=== PATIENT | male | born 1925 | race Caucasian/White ===

== ENCOUNTER 2016-09-14 20:13 | Inpatient (IN) | payer MEDICARE, BC, OTHER ==
[~2016-09-14] VITALS: Ht 175.3 cm; Wt 70.1 kg
[~2016-09-14 20:13] MED LIST: ADV250INH INH; CARD40TA PO; COUM1TAB17 PO; COUM2.5T11 PO; DIGO0.12 PO; FURO40TA2 PO; GABA-279 PO; GLIP5TAB8 PO; LEVA250T PO; MAGN400T5 PO; MUCI600T34 PO; PACE200T PO; PROA1AER INH; RAMI5CA PO; TAMS0.4C2 PO; TUMS500C PO; TYLE325T5 PO; VITMTA PO; ZOCO40TA PO
[2016-09-14 20:50] LABS: BASO # 0.1 K/mm3 (0.0-0.2); BASO % 0.7 % (0.0-1.0); EOS % 0.4 % (0.0-3.0); LARGE UNSTAINED CELL % 0.2 % (0.0-4.0); LYMPH # 0.6 K/mm3 (1.5-4.5); MEAN CORPUSCULAR HEMOGLOBIN 29.8 pg (27.0-33.0); MEAN CORPUSCULAR HGB CONC 30.7 g/dl (32.0-36.5); MEAN CORPUSCULAR VOLUME 97.3 fl (80.0-96.0); MONO # 0.2 K/mm3 (0.0-0.8); MONO % 2.1 % (0.0-5.0); NEUTROPHILS # 8.1 K/mm3 (1.8-7.7); NEUTROPHILS % 89.6 % (36.0-66.0); PLATELET COUNT, AUTOMATED 236 k/mm3 (150-450); RED CELL DISTRIBUTION WIDTH 14.1 % (11.5-14.5)
[2016-09-14 20:56] LABS: ABG BASE EXCESS 2.6 (-2.0-2.0); ABG DEVICE NASAL CANN; ABG HCO3 22.8 MEQ/L (22.0-26.0); ABG PARTIAL PRESSURE CO2 24.8 mmHg (35.0-45.0); ABG PARTIAL PRESSURE O2 72.9 mmHg (75.0-100.0); ABG STANDARD HCO3 26.7 MEQ/L (22.0-26.0); ABG TOTAL CO2 23.5 MEQ/L (23.0-31.0); ABG pH (ARTERIAL) 7.581 UNITS (7.350-7.450)
[2016-09-14 21:04] LABS: CALCIUM LEVEL 8.9 MG/DL (8.8-10.2); CREATININE FOR GFR 2.4 MG/DL (0.70-1.30); GLOMERULAR FILTRATION RATE 27.3 (>35); POTASSIUM SERUM 4.3 MEQ/L (3.5-5.1)
[2016-09-14] MEDS ORDERED: HumuLIN R (REGULAR) INSULIN (NovoLIN R) **100U/ML** PER UNIT As Ordered ONE (21:20)
[2016-09-14] MEDS ORDERED: ALPRAZolam 0.25 MG TAB As Ordered ONE (21:21)
[2016-09-14] MEDS ORDERED: FLOM5CAP PO (22:00)
[2016-09-14] MEDS ORDERED: FURO40TA2 PO (22:00)
[2016-09-14] MEDS ORDERED: SIMV20TA2 PO (22:00)
[2016-09-14] MEDS ORDERED: INCR1INH INH (22:03)
[2016-09-14] MEDS ORDERED: BUDE180INH INH (22:03)
[2016-09-14] MEDS ORDERED: PRED20TA PO (22:03)
[2016-09-14] MEDS ORDERED: VITMTA PO (22:03)
[2016-09-15] VITALS (7 sets, daily range): BP systolic 127–190; BP diastolic 59–98
[2016-09-15] MEDS ORDERED: ACETAMINOPHEN TAB 650MG DOSE (2X325MG) PO PRN
--- NOTE | 2016-09-15 00:29 | HPEPDOC ---
General Date of Admission Sep 14, 2016 at 23:56 Primary Care Physician: Marcus Rubi Chief Complaint The patient is a 89-year-old male admitted with a reason for visit of SOB. Source: patient, family Severity: Moderate History of Present Illness Mr Guerra is a pleasant 89 y/o male with past medical history of a. fib , CHF, COPD, CAD, hypercholesterolemia, HTN, mitral valve replacement, pulmonary HTN and DM2 who presents this evening after experiencing 24 hours of increased fatigue and SOB, the pt states that the SOB was worse with ambulation but did not worsen with laying flat in bed. He also has developed a cough productive of clear/white sputum over this time. He denies experiencing fever, chills, muscle aches or night sweats, denies recent travel or contact with others who have been ill. He denies abdominal pain, n/v or changes in his bowel habits, denies pain with urination and blood in his urine, denies CP or palpitations, denies h/a or blurred vision. He has said that he normally holds fluid in his legs, but that this has been getting better the past couple days. He does speak of a 17 lb weight loss over the past 2-3 weeks, although his family who is at bedside, thinks it has been more of a time frame of a week to 10 days. The pt admits to a decrease in appetite the past few days but doesn't think this could have attributed to the aforementioned weight loss. He was seen at our hospital ED a couple weeks ago and treated with a 10 day course of Doxycycline abx., and steroids for COPD exacerbation. Home Medications Scheduled (Incruse Ellipta) 62.5 Mcg/Inh Inh 62.5 MCG INH DAILY (Reported) Amiodarone Hcl (Pacerone) 200 Mg Tab 200 MG PO DAILY (Reported) Budesonide (Pulmicort Flexhaler) 120 Puff/Inhaler Aerp 1 PUFF INH BID (Reported ) Furosemide (Furosemide) 40 Mg Tab 40 MG PO BID (Reported) FRIDAY, FRIDAY, FRIDAY, FRIDAY, FRIDAY Furosemide (Furosemide) 40 Mg Tab 40 MG PO DAILY (Reported) FRIDAY, FRIDAY Glipizide (Glipizide) 5 Mg Tab 5 MG PO ACS (Reported) 1/2 BEFORE DINNERTIME Multivitamins *[facility] STOCKED* (Thera M Plus *[facility] STOCKED*) 1 Tab Tab 1 TAB PO DAILY (Reported) Prednisone (Prednisone) 20 Mg Tab 60 MG PO DAILY (Reported) Simvastatin (Simvastatin) 20 Mg Tab 20 MG PO QHS (Reported) Tamsulosin Hydrochloride (Flomax) 0.4 Mg Cap 0.4 MG PO DAILY (Reported) AFTER DINNERTIME Warfarin Sod (Coumadin) 5 Mg Tab 5 MG PO 2XWK (Reported) FRIDAY, FRIDAY Warfarin Sod (Coumadin) 2.5 Mg Tab 2.5 MG PO 5XW (Reported) FRIDAY, FRIDAY, FRIDAY, FRIDAY, FRIDAY Scheduled PRN Acetaminophen (Tylenol) 325 Mg Tab 650 MG PO Q4H PRN PRN MILD PAIN OR FEVER ( Reported) Calcium Carbonate (Tums) 500 Mg Chw 1,000 MG PO Q4HP PRN PRN HEARTBURN (Reported ) Allergies Coded Allergies: Penicillins (Unverified Allergy, Unknown, rash, 12/19/15) Past Medical History Medical History COPD CHF CAD a fib pulmonary HTN mitral valve replacement surgery DM2 hypercholesterolemia HTN Surgical History appendectomy back surgery mitral valve replaced in 2002 bowel resection sx. >50 years ago tonsillectomy Family History Significant Family History: No pertinent family hx Social History * Smoker: former Smoker (quit 33 years prior, quarter pack a week for 17 years) Alcohol: rarely (1 beer a month) Recent Travel/Sick Contacts: Denies: Recent travel Psychosocial History: No pertinent psych hx Review of Symptoms General: Reports: Fatigue, Malaise, Denies: Chills, Night Sweats, Normal Appetite Constitutional: Reports: Fatigue, Malaise, Weight Loss, Denies: Chills, Fever, Night Sweats, Weakness Eyes: Denies: Conjunctivae inflammation, Eyelid inflammation, Pain, Vision change ENT: Denies: Ear Pain, Head Aches Skin: Denies: Bruising, Jaundice, Lesions, Rash Pulmonary: Reports: Cough, Dyspnea, Denies: Pleuritic Chest Pain Cardiovascular: Reports: Lt Headedness, Denies: Chest Pain, Edema, Orthopnea, Palpitations, Paroxysmal Noc. Dyspnea Gastrointestinal: Denies: Abdominal Pain, Constipation, Diarrhea, Nausea, Vomiting Genitourinary: Denies: Dysuria, Frequency, Incontinence Hematologic: Denies: Bruising Endocrine: Denies: Polydipsia Neurological: Denies: Incoordination, Weakness Psych: Reports: Mood Normal Physical Examination Eye Exam: Positive: Conjunctiva & lids normal, PERRLA, Negative: Ptosis, Sclera icteric ENT Exam: Positive: Atraumatic, Mucous membr. moist/pink, Nares Patent, Pharynx Normal Neck Exam: Positive: Supple Chest Exam: Positive: Clear to auscultation, Normal air movement, Negative: Rales, Rhonchi, Wheezing Heart Exam: Positive: Normal S1, Normal S2, Tachycardic, Negative: Gallops, Murmurs, Rubs Telemetry: Positive: No significant arrhythmia Abdomen Exam: Positive: Normal bowel sounds, Soft, Negative: Hepatospenomegaly, Tenderness Extremity Exam: Negative: Clubbing, Cyanosis, Edema Vital Signs bp 178/76 hr 94 rr 28 temp 96.5 99% on room ait Laboratory Data Labs 24H Laboratory Tests 2 09/14/16 20:32: Anion Gap 16, B-Type Natriuretic Peptide 225H, White Blood Count 9.0, Red Blood Count 5.14, Hemoglobin 15.3, Hematocrit 50.0, Mean Corpuscular Volume 97.3H, Mean Corpuscular Hemoglobin 29.8, Mean Corpuscular Hemoglobin Concent 30.7L, Red Cell Distribution Width 14.1, Platelet Count 236, Neutrophils (%) (Auto) 89.6H, Lymphocytes (%) (Auto) 7.0L, Monocytes (%) (Auto) 2.1, Eosinophils (%) ( Auto) 0.4, Basophils (%) (Auto) 0.7, Neutrophils # (Auto) 8.1H, Lymphocytes # ( Auto) 0.6L, Monocytes # (Auto) 0.2, Eosinophils # (Auto) 0.0, Basophils # (Auto ) 0.1, Blood Urea Nitrogen 64H, Creatinine 2.40H, Sodium Level 138, Potassium Level 4.3, Chloride Level 96L, Carbon Dioxide Level 26, Calcium Level 8.9, Glomerular Filtration Rate 27.3L, Large Unclassified Cells # 0.0, Large Unclassified Cells % 0.2, Troponin I 0.15H 09/14/16 20:33: D-Dimer, Quantitative 285.2, Prothromb Time International Ratio 5.00, Prothrombin Time 46.3H 09/14/16 20:48: Arterial Blood pH 7.581H, Arterial Blood Partial Pressure CO2 24.8L, Arterial Blood Partial Pressure O2 72.9L, Arterial Blood Total CO2 23.5, Arterial Blood HCO3 22.8, Arterial Blood Base Excess 2.6H, Arterial Blood Oxygen Saturation 96.6, Blood Gas Bicarbonate Standard 26.7H, Oxygen Delivery Device NASAL GENNARO 09/14/16 22:01: Urine Amorphous Sediment , Urine Appearance CLEAR, Urine Color STRAW, Urine pH 7.0, Urine Specific [place] 1.018, Urine Protein NEGATIVE, Urine Glucose (UA) 3+ H, Urine Ketones NEGATIVE, Urine Urobilinogen 0.2, Urine Bilirubin NEGATIVE, Urine Leukocyte Esterase NEGATIVE, Urine Bacteria (Auto) NEGATIVE, Urine Blood NEGATIVE, Urine Calcium Carbonate Cryst(Auto) , Urine Calcium Oxalate Cryst ( Auto) , Urine Calcium Phosphate Lisa (Auto) , Urine Cellular Casts , Urine Cystine Crystals , Urine Granular Casts (Auto) , Urine Hyaline Casts (Auto) 0, Urine Leucine Crystals , Urine Mucus (Auto) , Urine Nitrite NEGATIVE, Urine Oval Fat Bodies (Auto) , Urine RBC (Auto) 1, Urine Renal Epithelial Cells , Urine Sperm (Auto) , Urine Squamous Epithelial Cells 0, Urine Transitional Epithelial Cells , Urine Trichomonas (Auto) , Urine Triple Phosphate Cryst (Auto ) , Urine Tyrosine Crystals , Urine Uric Acid Crystals (Auto) , Urine WBC (Auto ) 0, Urine Waxy Casts (Auto) , Urine Yeast-Like Cells (Auto) 09/14/16 22:25: Bedside Glucose (Misc Panel) 450H 09/14/16 22:26: Creatine Kinase MB 6.8H, Creatine Kinase MB Relative Index 2.82, Total Creatine Kinase 241, Troponin I 0.14H CBC/BMP Laboratory Tests 09/14/16 20:32 Calcium Level 8.9, Red Blood Count 5.14, Mean Corpuscular Volume 97.3 H, Mean Corpuscular Hemoglobin 29.8, Mean Corpuscular Hemoglobin Concent 30.7 L, Red Cell Distribution Width 14.1, Neutrophils (%) (Auto) 89.6 H, Lymphocytes (%) ( Auto) 7.0 L, Monocytes (%) (Auto) 2.1, Eosinophils (%) (Auto) 0.4, Basophils (% ) (Auto) 0.7, Neutrophils # (Auto) 8.1 H, Lymphocytes # (Auto) 0.6 L, Monocytes # (Auto) 0.2, Eosinophils # (Auto) 0.0, Basophils # (Auto) 0.1 Microbiology Microbiology 09/14/16 Blood Culture, Received Pending 09/14/16 Blood Culture, Received Pending Assessment/Plan Problems: (1) Bronchitis Status: Acute Response to Treatment: Stable Problem Text: suspect this is 2/2 viral or anxiety as pt's most recent blood gas showed PCo2 of 24.8 with ph 7.5, and the pt did admit to being anxious when he came to ED, with a resp rate in the high 20's have ordered sputum cx CXR was not concerning for consolidation pt did not have elevated white count nor temperature nor lactic acid will hold on abx therapy for now as do not think this is 2/2 bacterial etiology since pt was on steroid taper, will continue prednisone taper inpt. (2) Atrial fibrillation Status: Chronic Response to Treatment: Stable Problem Text: will hold pts Coumadin therapy for now coag. studies show pt to be supra-therapeutic have ordered vitamin K EKG in AM trend troponins., first set showed elevation, may be 2/2 kidney disease- will repeat set. (3) HTN (hypertension) Status: Chronic Response to Treatment: Stable Problem Text: BP is slightly elevated will continue pts home medications % monitor (4) COPD (chronic obstructive pulmonary disease) Status: Chronic Response to Treatment: Stable Problem Text: will order Duoneb PRN q4h pt is resting comfortably and does not currently claim to be SOB will also order O2 titrate 88-92% given COPD hx. (5) CHF (congestive heart failure) Status: Chronic Response to Treatment: Stable Problem Text: stable last Echo study done 12/05 showed LVEF 75% continue home medications (6) Weight loss Status: Acute Response to Treatment: Stable Problem Text: pt states he thinks he has lost 17 lbs over the past 2-3 weeks, however family is bedside and claims they believe it has been more in a 7-10 day period pt did not admit to actively doing anything to cause such a weight loss admits appetite has been decreased but does not think it could cause such a drop in weight will order CT chest w/o contrast to evaluate further (7) DM2 (diabetes mellitus, type 2) Status: Chronic Response to Treatment: Stable Problem Text: stopped pts home diabetes medicines sliding scale insulin therapy ordered (8) DVT prophylaxis Status: Chronic Response to Treatment: Stable Problem Text: SCD Plan / VTE VTE Prophylaxis Ordered?: Yes GME ATTESTATION GME ATTESTATION My preceptor for this patient encounter was physically present in the building during the encounter and was fully available. As needed, all aspects of the patient interview, examination, medical decision making process, and medical care plan development were reviewed and approved by the preceptor. Preceptor is aware and concurs with the plan as stated in the body of this note and will attest to such by his/her cosignature. PATRICIA FIORE OGME-1 Sep 15, 2016 00:29
[2016-09-15] MEDS ORDERED: GLUCAGON FOR INJ 1 MG VIAL (J1610) SC PRN (00:30)
[2016-09-15] MEDS ORDERED: GLUCOSE 4 GM CHEW TABLET PO PRN (00:30)
[2016-09-15] MEDS ORDERED: DEXTROSE 50% 50 ML SYRINGE IV PRN (00:30)
[2016-09-15] MEDS ORDERED: IPRATROPIUM 0.5MG/ALBUTEROL 2.5MG INH SOL UD 3ML (DUONEB)(J7620) NEB PRN (01:15)
--- NOTE | 2016-09-15 02:14 | EDDOCDS ---
Physician Documentation [facility] Name: Wilman Guerra Age: 89 yrs Sex: Male : 1925 Arrival Date: 09/14/2016 Time: 20:13 Bed 8 Private MD: Marcus Rubi Disposition: 09/14/16 23:29 Hospitalization ordered by Reinier Carrington for Observation. Preliminary diagnosis are Acute kidney failure, Shortness of breath, Hyperglycemia, unspecified. - Bed requested for PCU. - Status is Observation. ko2 - Condition is Stable. - Problem is an acute exacerbation. - Symptoms are unchanged. Historical: - Allergies: PENICILLINS (Hives); - Home Meds: 1. amiodarone 200 mg Oral tab 1 tab once daily 2. Coumadin 2.5 mg on --, Sat, 5 mg on -- Oral tab 3. Pulmicort 0.5 mg/2 mL Inhl nbsp 2 mL 2 times per day 4. furosemide 40 mg Oral tab 1 tab once daily if weight is above 139#, pt to take med BID. Pt to take Tues/Sat off from med 5. glipizide 5 mg Oral tab 1 tab once daily 6. Incruse Ellipta 62.5 mcg/actuation inhalation dsdv 1 puff once daily 7. multivitamin Oral tab 1 tab daily 8. simvastatin 20 mg Oral tab 1 tab nightly 9. tamsulosin 0.4 mg oral cp24 1 cap once daily 10. prednisone 20 mg Oral tab 60 mg once daily - PMHx: Atrial Fib; CHF; COPD; coronary arteriosclerosis; Hypercholesterolemia; Hypertension; mitral valve disorder; - PSHx: Appendectomy; Mitral Valve Replacement, Procine; back surgery; Tonsillectomy; Bowel resection; - Social history: Smoking status: Patient states former smoker of tobacco. No barriers to communication noted, The patient speaks fluent Sudanese, Speaks appropriately for age. - Family history: Not pertinent. - : The pt / caregiver states he / she is on anticoagulants: coumadin. Home medication list is obtained from the patient, a discharge med list. - Exposure Risk Screening:: None identified. Vital Signs: 09/14 20:15 BP 178 / 76; Pulse 94; Resp 28 S; Temp 96.5(T); Pulse Ox 99% on R/A; Weight 58.06 kg / dd6 128 lbs (R); Height 5 ft. 9 in. (175.26 cm) (R); 20:50 Pulse 82 MON; Pulse Ox 98% ; ko2 20:51 BP 143 / 69 (auto/); ko2 21:36 BP 169 / 78 (auto/); ko2 21:37 Pulse 84 MON; Pulse Ox 96% ; ko2 21:51 BP 193 / 84 (auto/); ko2 21:51 Pulse 78 MON; Pulse Ox 97% ; ko2 22:06 BP 160 / 83 (auto/); ko2 22:06 Pulse 76 MON; Pulse Ox 96% ; ko2 22:21 BP 171 / 88 (auto/); ko2 22:21 Pulse 82 MON; Resp 22; Pulse Ox 97% ; ko2 23:06 BP 141 / 73 (auto/); ko2 23:06 Pulse 72 MON; Pulse Ox 94% ; ko2 23:21 BP 142 / 74 (auto/); ko2 23:22 Pulse 72 MON; Pulse Ox 94% ; ko2 23:36 BP 144 / 83 (auto/); ko2 23:36 Pulse 74 MON; Pulse Ox 95% ; ko2 23:51 BP 158 / 82 (auto/); ko2 23:51 Pulse 70 MON; Pulse Ox 95% ; ko2 09/15 00:26 BP 125 / 78; Pulse 60; Resp 18; Temp 97; Pulse Ox 98% ; Pain 0/10; ko2 09/14 20:15 Body Mass Index 18.90 (58.06 kg, 175.26 cm) dd6 MDM: 09/14 20:18 -Blood Culture (Adults Only), peripheral from different site, or from device/port/PICC le etc. if present ordered. 20:18 Cuff Setter Overlock/Pulse Ox/q 15 min VS ordered. le 20:18 IV Saline Lock ordered. le 20:18 Oxygen at 4L/Min NC or Home dosage ordered. le 20:18 Rhythm Strip to chart ordered. le 20:19 B-Type Natiuretic Peptide Ordered. EDMS 20:19 Basic Metabolic Profile Ordered. EDMS 20:19 CBC with Diff Ordered. EDMS 20:19 Troponin Ordered. EDMS 20:20 -Blood Culture Ordered. EDMS 20:20 Chest, 2 View (pa\E\lat) Ordered. EDMS 20:20 ECG WITH READING ER PHYS+CARDIAG ordered. EDMS 20:22 UA Ordered. EDMS 20:30 -Blood Culture (Adults Only), peripheral from different site, or from device/port/PICC ml3 etc. if present complete. 20:30 Call Respiratory ordered. le 20:31 INR Ordered. EDMS 20:31 BLOOD CULTURES Ordered. EDMS 20:31 -Arterial Blood Gas Ordered. EDMS 20:33 Call Respiratory complete. ml3 20:34 D-DIMER QUANT Ordered. EDMS 20:55 CBC with Diff Reviewed. le 21:01 -Arterial Blood Gas Reviewed. le 21:02 ALPRAZolam Tablet 0.5 mg PO once ordered. le 21:06 B-Type Natiuretic Peptide Reviewed. le 21:06 NS 0.9% 1000 ml IV at bolus once ordered. le 21:07 Insulin Regular Human 5 units IVP once ordered. le 21:07 Accucheck ordered. le 21:07 Accucheck ordered. le 21:09 Basic Metabolic Profile Reviewed. le 21:09 Troponin Reviewed. le 21:12 BED REQUEST+ADM ordered. EDMS 21:13 Redraw CIP &Troponin (put time in details section) ordered. le 21:36 Redraw CIP &Troponin (put time in details section) complete. ml3 21:37 CARDIAC MARKER PANEL Ordered. EDMS 21:43 D-DIMER QUANT Reviewed. le 21:43 INR Reviewed. le 22:20 Financial registration complete. kf3 22:35 Fingerstick Blood Sugar Ordered. EDMS 22:56 Fingerstick Blood Sugar Reviewed. le 23:21 CARDIAC MARKER PANEL Reviewed. le 23:22 [facility] Payment Agreement was scanned into [employer] and attached to record. kf3 23:28 NS 0.9% 1000 ml IV at 100 mL/hr continuous ordered. le 09/15 00:03 Admission / Observation Status ordered. EDMS 00:03 ELECTROCARDIOGRAM ADULT ordered. EDMS 00:04 CONSISTENT CARBOHYDRATES ordered. EDMS 00:04 PROTHROMBIN TIME PROFILE\E\INR Ordered. EDMS 00:04 CBC WITH DIFFERENTIAL Ordered. EDMS 00:04 COMPLETE COMPHRENSIVE METABOLI Ordered. EDMS 00:04 MAGNESIUM LEVEL Ordered. EDMS 00:07 CARDIAC INJURY PROFILE Ordered. EDMS 00:08 CARDIAC INJURY PROFILE Ordered. EDMS 00:08 CARDIAC INJURY PROFILE Ordered. EDMS 00:22 HEMOGLOBIN A1C Ordered. EDMS 00:24 SPUTUM CULTURE AND GRAM STAIN Ordered. EDMS 01:26 CT Chest without contrast Ordered. EDMS Administered Medications: 09/14 21:20 Drug: NS 0.9% 1000 ml [sodium chloride 0.9 % intravenous solution] Route: IV; Rate: ko2 bolus; Site: left antecubital; 22:34 Follow up: IV Status: Completed infusion; IV Intake: 1000ml ko2 21:20 Drug: Insulin Regular Human 5 units [insulin regular human 100 unit/mL injection ko2 solution (0.05 mL)] {Co-Signature: mlc (Hanny Gibbs RN).} Route: IVP; Site: left antecubital; 21:25 Drug: ALPRAZolam 0.5 mg [alprazolam 0.25 mg tablet (2 tabs)] Route: PO; ko2 23:39 Drug: NS 0.9% 1000 ml [sodium chloride 0.9 % intravenous solution] Route: IV; Rate: 100 ko2 mL/hr; Site: left antecubital; Signatures: Dispatcher [employer] EDMS Remigio Lee, Education Liaison Unit ml3 Mikaela Bagley, REJECTED ITEMS CLERK REJECTED ITEMS CLERK Lupillo Ayers, Reg Reg kf3 Gentry Gamble RN RN jmb Ogden, Kari, RN RN ko2 Hanny jimenez The chart was reviewed and I authenticate all verbal orders and agree with the evaluation and treatment provided.Corrections: (The following items were deleted from the chart) 20:33 20:31 D-DIMER QUANT+LAB ordered. EDVA EDMS 09/15 00:09 00:04 CARDIAC INJURY PROFILE ordered. EDMS EDMS 00:09 00:04 CARDIAC INJURY PROFILE ordered. EDMS EDMS 00:09 00:04 CARDIAC INJURY PROFILE ordered. EDVA EDMS Attachments: 09/14 23:22 [facility] Payment Agreement kf3 MTDD
--- NOTE | 2016-09-15 02:14 | EDDOCDS ---
Nurse's Notes [facility] Name: Wilman Guerra Age: 89 yrs Sex: Male : 1925 Arrival Date: 09/14/2016 Time: 20:13 Bed 8 Private MD: Marcus Rubi Diagnosis: Acute kidney failure;Shortness of breath;Hyperglycemia, unspecified Presentation: 09/14 20:23 Presenting complaint: Friend states: Patient presented with shortness of breathe, jmb recent cough. Patient weak. Adult Sepsis Screening: The patient does not have new or worsening altered mentation. Patient has a respiratory rate of greater than or equal to 22 (1 point). Systolic blood pressure is greater than 100. Patient has a qSOFA score of 1- Negative Sepsis Screen. Suicide/Homicide risk assessment- the patient denies having any suicidal and/or homicidal ideations and does not present with any other emotional, behavioral or mental health complaints. Status: Patient is not a service delivery director or dependent. Transition of care: patient was not received from another setting of care. 20:23 Acuity: YOVANNY Level 3 b 20:23 Method Of Arrival: Wheelchair [facility] Triage Assessment: 20:25 General: Appears ill, uncomfortable, Behavior is appropriate for age. Pain: Denies [facility] pain. Neurological: Level of Consciousness is awake, Oriented to person, place, time. Respiratory: Onset: The symptoms/episode began/occurred gradually, Airway is patent Respiratory effort is labored, Respiratory pattern is regular. GI: Abdomen is non- distended. Derm: Skin is pink, warm & dry. Musculoskeletal: Range of motion intact in all extremities. Historical: - Allergies: PENICILLINS (Hives); - Home Meds: 1. amiodarone 200 mg Oral tab 1 tab once daily 2. Coumadin 2.5 mg on --, Sat, 5 mg on Oral tab 3. Pulmicort 0.5 mg/2 mL Inhl nbsp 2 mL 2 times per day 4. furosemide 40 mg Oral tab 1 tab once daily if weight is above 139#, pt to take med BID. Pt to take Tues/Sat off from med 5. glipizide 5 mg Oral tab 1 tab once daily 6. Incruse Ellipta 62.5 mcg/actuation inhalation dsdv 1 puff once daily 7. multivitamin Oral tab 1 tab daily 8. simvastatin 20 mg Oral tab 1 tab nightly 9. tamsulosin 0.4 mg oral cp24 1 cap once daily 10. prednisone 20 mg Oral tab 60 mg once daily - PMHx: Atrial Fib; CHF; COPD; coronary arteriosclerosis; Hypercholesterolemia; Hypertension; mitral valve disorder; - PSHx: Appendectomy; Mitral Valve Replacement, Procine; back surgery; Tonsillectomy; Bowel resection; - Social history: Smoking status: Patient states former smoker of tobacco. No barriers to communication noted, The patient speaks fluent Nepali, Speaks appropriately for age. - Family history: Not pertinent. - : The pt / caregiver states he / she is on anticoagulants: coumadin. Home medication list is obtained from the patient, a discharge med list. - Exposure Risk Screening:: None identified. Screenin/25 00:25 Screening information is obtained from the patient. Fall risk: No risks identified. ko2 Assistance ADL's: requires no assistance with activities of daily living. Abuse/DV Screen: The patient / caregiver reports he/she is: not in a situation that causes fear, pain or injury. Nutritional screening: No deficits noted. Advance Directives: Currently, there is a health care proxy. home support is adequate. Assessment: 09/14 20:25 General: Appears in no apparent distress, Behavior is anxious. Pain: Denies pain. ko2 Neurological: Level of Consciousness is awake, alert. Cardiovascular: Rhythm is. Cardiovascular: Rhythm is atrial fibrillation. Respiratory: Airway is patent Breath sounds are diminished bilaterally. Derm: Skin is normal. 21:36 General: Appears in no apparent distress, Behavior is anxious. Pain: Denies pain. ko2 Neurological: Level of Consciousness is awake, alert. Cardiovascular: Rhythm is sinus rhythm No ectopy. Chest pain is denied. Respiratory: Airway is patent Respiratory effort is even, unlabored. Derm: Skin is normal. 22:29 General: Appears in no apparent distress, comfortable, Behavior is appropriate for age, ko2 cooperative. Pain: Denies pain. Neurological: Level of Consciousness is awake, alert. Respiratory: Airway is patent Respiratory effort is even, unlabored. Derm: Skin is normal. 23:30 General: pt currently resting on stretcher at this time. No concerns.. ko2 09/15 00:24 General: Appears in no apparent distress, comfortable, Behavior is appropriate for age, ko2 cooperative. Pain: Denies pain. Neurological: Level of Consciousness is awake, alert. Respiratory: Airway is patent Respiratory effort is. Derm: Skin is normal. Vital Signs: 09/14 20:15 BP 178 / 76; Pulse 94; Resp 28 S; Temp 96.5(T); Pulse Ox 99% on R/A; Weight 58.06 kg dd6 (R); Height 5 ft. 9 in. (175.26 cm) (R); 20:50 Pulse 82 MON; Pulse Ox 98% ; ko2 20:51 BP 143 / 69 (auto/); ko2 21:36 BP 169 / 78 (auto/); ko2 21:37 Pulse 84 MON; Pulse Ox 96% ; ko2 21:51 BP 193 / 84 (auto/); ko2 21:51 Pulse 78 MON; Pulse Ox 97% ; ko2 22:06 BP 160 / 83 (auto/); ko2 22:06 Pulse 76 MON; Pulse Ox 96% ; ko2 22:21 BP 171 / 88 (auto/); ko2 22:21 Pulse 82 MON; Resp 22; Pulse Ox 97% ; ko2 23:06 BP 141 / 73 (auto/); ko2 23:06 Pulse 72 MON; Pulse Ox 94% ; ko2 23:21 BP 142 / 74 (auto/); ko2 23:22 Pulse 72 MON; Pulse Ox 94% ; ko2 23:36 BP 144 / 83 (auto/); ko2 23:36 Pulse 74 MON; Pulse Ox 95% ; ko2 23:51 BP 158 / 82 (auto/); ko2 23:51 Pulse 70 MON; Pulse Ox 95% ; ko2 09/15 00:26 BP 125 / 78; Pulse 60; Resp 18; Temp 97; Pulse Ox 98% ; Pain 0/10; ko2 09/14 20:15 Body Mass Index 18.90 (58.06 kg, 175.26 cm) dd6 Vitals: 09/14 20:15 Log In Time: September 14, 2016 at 20:13. dd6 20:15 RN notified that patient meets Red Flag criteria. dd6 ED Course: 20:14 Patient visited by Richard Lopez PCA. dd6 20:14 Marcus Rubi is Private Physician. dd6 20:14 Patient moved to Waiting dd6 20:17 Echo Abrams,RN is Primary Nurse. dd6 20:17 Patient moved to 8 dd6 20:18 [facility]ael[facility] Bagley F[facility]. le 20:21 Patient visited by Mikaela Bagley FNP. le 20:21 Patient visited by Mikaela Bagley FNP. le 20:24 Triage Initiated jmb 20:37 INR Sent. ko2 20:37 -Blood Culture Sent. ko2 20:37 B-Type Natiuretic Peptide Sent. ko2 20:37 Basic Metabolic Profile Sent. ko2 20:37 CBC with Diff Sent. ko2 20:38 D-DIMER QUANT Sent. ko2 20:38 Inserted saline lock: 20 gauge in left antecubital area and blood collected. The ko2 patient tolerated the procedure well. 20:38 EKG done. (by ED staff). Reviewed by Mikaela KEMP. kb5 20:39 Patient visited by George Fournier PCA. kb5 21:06 Patient visited by Hanny Gibbs RN. mlc 21:06 Notified nurse practitioner of critical lab value, glucose 759. mlc 21:38 Notified nurse practitioner of INR of 5 Mikaela Bagley notified. ko2 21:58 Patient visited by George Fournier PCA. kb5 22:04 UA Sent. ko2 22:05 Patient visited by Echo Abrams,BALDEV. ko2 22:58 Patient visited by George Fournier PCA. kb5 23:22 [facility] Payment Agreement was scanned into [employer] and attached to record. kf3 23:29 Reinier Carrington is Hospitalizing Provider. le 09/15 00:45 The patient / caregiver is instructed regarding the plan of care and ED course. ko2 00:45 No procedures done that require assistance. ko2 Administered Medications: 09/14 21:20 Drug: NS 0.9% 1000 ml [sodium chloride 0.9 % intravenous solution] Route: IV; Rate: ko2 bolus; Site: left antecubital; 22:34 Follow up: IV Status: Completed infusion; IV Intake: 1000ml ko2 21:20 Drug: Insulin Regular Human 5 units [insulin regular human 100 unit/mL injection ko2 solution (0.05 mL)] {Co-Signature: [facility] [place] (Hanny Gibbs RN).} Route: IVP; Site: left antecubital; 21:25 Drug: ALPRAZolam 0.5 mg [alprazolam 0.25 mg tablet (2 tabs)] Route: PO; ko2 23:39 Drug: NS 0.9% 1000 ml [sodium chloride 0.9 % intravenous solution] Route: IV; Rate: 100 ko2 mL/hr; Site: left antecubital; Intake: 22:34 IV: 1000.00ml; Total: 1000.00ml. ko2 RT: 21:01 ABG's drawn from left radial artery allens test done and positive pressure held for 5 dk minutes no bleeding noted pressure bandage applied specimen sent pt. tolerated well. Order Results: Lab Order: B-Type Natiuretic Peptide; SPEC'M 09/14/16 20:32 Test: BRAIN NATRIURETIC PEPTIDE; Value: 225; Range: <100; Abnormal: Above high normal; Units: PG/ML; Status: F Lab Order: Basic Metabolic Profile; SPEC'M 09/14/16 20:32 Test: GLUCOSE, FASTING; Value: 759; Range: 83-110; Abnormal: Above upper panic limits; Units: MG/DL; Status: F Test: BLOOD UREA NITROGEN; Value: 64; Range: 7-18; Abnormal: Above high normal; Units: MG/DL; Status: F Test: CREATININE FOR GFR; Value: 2.40; Range: 0.70-1.30; Abnormal: Above high normal; Units: MG/DL; Status: F Test: GLOMERULAR FILTRATION RATE; Value: 27.3; Range: >35; Abnormal: Below low normal; Status: F Test: SODIUM LEVEL; Value: 138; Range: 136-145; Units: MEQ/L; Status: F Test: POTASSIUM SERUM; Value: 4.3; Range: 3.5-5.1; Units: MEQ/L; Status: F Test: CHLORIDE LEVEL; Value: 96; Range: 98-107; Abnormal: Below low normal; Units: MEQ/L; Status: F Test: CARBON DIOXIDE LEVEL; Value: 26; Range: 21-32; Units: MEQ/L; Status: F Test: ANION GAP; Value: 16; Range: 8-16; Units: MEQ/L; Status: F Test: CALCIUM LEVEL; Value: 8.9; Range: 8.8-10.2; Units: MG/DL; Status: F Test Note: ; Units are mL/min/1.73 m2 Chronic Kidney Disease Staging per NKF: Stage I & II GFR >=60 Normal to Mildly Decreased Stage III GFR 30-59 Moderately Decreased Stage IV GFR 15-29 Severely Decreased Stage V GFR <15 Very Little GFR Left ESRD GFR <15 on ACCOUNTS MANAGER Lab Order: CBC with Diff; SPEC'M 09/14/16 20:32 Test: WHITE BLOOD COUNT; Value: 9.0; Range: 4.0-10.0; Units: K/mm3; Status: F Test: RED BLOOD COUNT; Value: 5.14; Range: 4.30-6.10; Units: M/mm3; Status: F Test: HEMOGLOBIN; Value: 15.3; Range: 14.0-18.0; Units: g/dl; Status: F Test: HEMATOCRIT; Value: 50.0; Range: 42.0-52.0; Units: %; Status: F Test: MEAN CORPUSCULAR VOLUME; Value: 97.3; Range: 80.0-96.0; Abnormal: Above high normal; Units: fl; Status: F Test: MEAN CORPUSCULAR HEMOGLOBIN; Value: 29.8; Range: 27.0-33.0; Units: pg; Status: F Test: MEAN CORPUSCULAR HGB CONC; Value: 30.7; Range: 32.0-36.5; Abnormal: Below low normal; Units: g/dl; Status: F Test: RED CELL DISTRIBUTION WIDTH; Value: 14.1; Range: 11.5-14.5; Units: %; Status: F Test: PLATELET COUNT, AUTOMATED; Value: 236; Range: 150-450; Units: k/mm3; Status: F Test: NEUTROPHILS %; Value: 89.6; Range: 36.0-66.0; Abnormal: Above high normal; Units: %; Status: F Test: LYMPH %; Value: 7.0; Range: 24.0-44.0; Abnormal: Below low normal; Units: %; Status: F Test: MONO %; Value: 2.1; Range: 0.0-5.0; Units: %; Status: F Test: EOS %; Value: 0.4; Range: 0.0-3.0; Units: %; Status: F Test: BASO %; Value: 0.7; Range: 0.0-1.0; Units: %; Status: F Test: LARGE UNSTAINED CELL %; Value: 0.2; Range: 0.0-4.0; Units: %; Status: F Test: NEUTROPHILS #; Value: 8.1; Range: 1.8-7.7; Abnormal: Above high normal; Units: K/mm3; Status: F Test: LYMPH #; Value: 0.6; Range: 1.5-4.5; Abnormal: Below low normal; Units: K/mm3; Status: F Test: MONO #; Value: 0.2; Range: 0.0-0.8; Units: K/mm3; Status: F Test: EOS #; Value: 0.0; Range: 0.0-0.50; Units: K/mm3; Status: F Test: BASO #; Value: 0.1; Range: 0.0-0.2; Units: K/mm3; Status: F Test: LARGE UNSTAINED CELL #; Value: 0.0; Range: 0.0-0.4; Units: K/mm3; Status: F Lab Order: Troponin; SPEC'M 09/14/16 20:32 Test: TROPONIN I; Value: 0.15; Range: < 0.10; Abnormal: Above high normal; Units: NG/ML; Status: F Test Note: ; Troponin I Reference Interval for Siemens LumaStream LOCI: 99th Percentile= 0.00-0.045 ng/ml Risk Stratification: <= 0.10 ng/ml Decreased Risk for Adverse Clinical Events. 0.10-1.50 ng/ml Increased Risk for Adverse Clinical Events. Evaluation of additional criterion and/or repeat testing in 2-6 hours is suggested to rule out myocardial damage. >= 1.50 ng/ml Indicative of Myocardial Injury. Lab Order: UA; SPEC'M 09/14/16 22:01 Test: APPEARANCE, URINE; Value: CLEAR; Range: CLEAR; Status: F Test: COLOR, URINE; Value: STRAW; Range: YELLOW; Status: F Test: PH,URINE; Value: 7.0; Range: 5.0-9.0; Units: UNITS; Status: F Test: SPECIFIC GRAVITY URINE AUTO; Value: 1.018; Range: 1.002-1.035; Status: F Test: PROTEIN, URINE AUTO; Value: NEGATIVE; Range: NEGATIVE; Units: mg/dL; Status: F Test: GLUCOSE, URINE (UA) AUTO; Value: 3+; Range: NEGATIVE; Abnormal: Above high normal; Units: mg/dL; Status: F Test: KETONE, URINE AUTO; Value: NEGATIVE; Range: NEGATIVE; Units: mg/dL; Status: F Test: UROBILINOGEN, URINE AUTO; Value: 0.2; Range: 0.0-2.0; Units: mg/dL; Status: F Test: BILIRUBIN, URINE AUTO; Value: NEGATIVE; Range: NEGATIVE; Status: F Test: NITRITE, URINE AUTO; Value: NEGATIVE; Range: NEGATIVE; Status: F Test: LEUKOCYTE ESTERASE, URINE AUTO; Value: NEGATIVE; Range: NEGATIVE; Status: F Test: BLOOD, URINE BLOOD; Value: NEGATIVE; Range: NEGATIVE; Status: F Test: WBC, URINE AUTO; Value: 0; Range: 0-3; Units: /HPF; Status: F Test: RBC, URINE AUTO; Value: 1; Range: 0-3; Units: /HPF; Status: F Test: BACTERIA, URINE AUTO; Value: NEGATIVE; Range: NEGATIVE; Status: F Test: SQUAMOUS EPITHELIAL CELL UR AU; Value: 0; Range: 0-6; Units: /HPF; Status: F Test: HYALINE CAST, URINE AUTO; Value: 0; Range: 0-1; Units: /LPF; Status: F Lab Order: INR; SPEC'M 09/14/16 20:33 Test: PROTHROMBIN TIME; Value: 46.3; Range: 12.3-14.5; Abnormal: Above high normal; Units: SECONDS; Status: F Test: INR; Value: 5.00; Status: F Test Note: ; THERAPUTIC HUMAN INR VALUES INDICATIONS NORMAL RANGES PROPHYLAXIS/TREATMENT OF: VENOUS THROMBOSIS 2.0-3.0 PULMONARY EMBOLISM 2.0-3.0 PREVENTION OF SYSTEMIC EMBOLISM FROM: TISSUE HEART VALVES 2.0-3.0 ACUTE MYOCARDIAL INFARCTION 2.0-3.0 VALVULAR HEART DISEASE 2.0-3.0 ATRIAL FIBRILLATION 2.0-3.0 MECHANICAL VALVES(HIGH RISK) 2.5-3.5 RECURRENT MYOCARDIAL INFARCTION 2.5-3.5 Lab Order: -Arterial Blood Gas; [facility] 09/14/16 20:48 Test: ABG pH (ARTERIAL); Value: 7.581; Range: 7.350-7.450; Abnormal: Above high normal; Units: UNITS; Status: F Test: ABG PARTIAL PRESSURE CO2; Value: 24.8; Range: 35.0-45.0; Abnormal: Below low normal; Units: mmHg; Status: F Test: ABG PARTIAL PRESSURE O2; Value: 72.9; Range: 75.0-100.0; Abnormal: Below low normal; Units: mmHg; Status: F Test: ABG TOTAL CO2; Value: 23.5; Range: 23.0-31.0; Units: MEQ/L; Status: F Test: ABG HCO3; Value: 22.8; Range: 22.0-26.0; Units: MEQ/L; Status: F Test: ABG BASE EXCESS; Value: 2.6; Range: -2.0-2.0; Abnormal: Above high normal; Status: F Test: ABG STANDARD HCO3; Value: 26.7; Range: 22.0-26.0; Abnormal: Above high normal; Units: MEQ/L; Status: F Test: ABG O2 SATURATION; Value: 96.6; Range: 95.0-99.0; Units: %; Status: F Test: ABG DEVICE; Value: NASAL GENNARO; Status: F Lab Order: D-DIMER QUANT; [facility] 09/14/16 20:33 Test: D-DIMER QUANT; Value: 285.2; Range: <500; Units: ng/ml; Status: F Lab Order: CARDIAC MARKER PANEL; [facility] 09/14/16 22:26 Test: CPK CREATINE PHOSPHOKINASE; Value: 241; Range: 39-308; Units: U/L; Status: F Test: CK-MB VALUE MASS; Value: 6.8; Range: 0.0-3.6; Abnormal: Above high normal; Units: NG/ML; Status: F Test: MB/CK RELATIVE INDEX; Value: 2.82; Range: < OR =4; Status: F Test: TROPONIN I; Value: 0.14; Range: < 0.10; Abnormal: Above high normal; Units: NG/ML; Status: F Test Note: ; DIAGNOSIS CRITERIA MMB ng/ml Relative Index (RI) NON-AMI < or = 5 N/A [place] > 5 < or = 4 AMI > 5 > 4 Lab Order: Fingerstick Blood Sugar; [facility] 09/14/16 22:25 Test: BEDSIDE GLUCOSE; Value: 450; Range: 83-110; Abnormal: Above high normal; Units: MG/DL; Status: F Lab Order: HEMOGLOBIN A1C; [facility] 09/14/16 20:32 Test: HEMOGLOBIN A1c; Value: 8.1; Range: 4.5-6.2; Abnormal: Above high normal; Units: %; Status: F Test: ESTIMATED AVERAGE GLUCOSE; Value: 186; Range: 60-110; Abnormal: Above high normal; Units: MG/DL; Status: F Outcome: 23:29 Decision to Hospitalize by Provider. 09/15 00:45 Discharge Assessment: Patient awake, alert and oriented x 3. No cognitive and/or ko2 functional deficits noted. Patient verbalized understanding of disposition instructions. patient administered narcotics - no. The following High Risk Discharge criteria are identified: None. Admitted to PCU accompanied by nurse, accompanied by tech, on monitor, with chart. Condition: stable. No special radiology studies were completed. Admission hand-off: Report Faxed Fax receipt verified by BAL[facility]. Property :Personal belongings accompany Pt. 02:13 Patient left the ED. ko2 Signatures: Leighann Jones,RT RT George Gregg, ACTUARIAL ASSISTANT ACTUARIAL ASSISTANT kb5 Mikaela Bagley, CNC MILL SET UP OPERATOR CNC MILL SET UP OPERATOR Lupillo Ayers, Reg Reg kf3 Richard Lopez, ACTUARIAL ASSISTANT ACTUARIAL ASSISTANT dd6 Gentry Gamble RN RN jmb Booth, Mandy, RN RN mlc Ogden, Kari, RN RN ko2 Mandy Booth RN mlc MTDD
[2016-09-15] MEDS: SIMVASTATIN 20 MG TAB PO SCH ×2 (02:25→20:12)
[2016-09-15] MEDS: NS 1,000 ML IV SCH ×2 (02:25→20:24)
[2016-09-15] MEDS: FUROSEMIDE 40 MG TAB PO SCH ×2 (02:25→08:11)
[2016-09-15] MEDS ORDERED: PHYTONADIONE 5 MG TAB PO ONE (02:30)
--- NOTE | 2016-09-15 03:10 | REPUSA ---
CLINICAL HISTORY: Weight loss. TECHNIQUE: Multiple axial CT images were obtained through chest with IV contrast material. MPR pepper l and sagittal sequences were obtained. COMMENTS: Compared to prior CT of the chest dated 09/27/13. Biapical fibronodular scarring is seen. There are mildly increased referral interstitial markings no donald within both lungs, suggesting early pulmonary fibrosis There is no evidence of pleural or parenchymal mass. There are no pleural effusions. There is no evid ence of hilar or mediastinal lymphadenopathy. The heart and great vessels are within normal limits. The visualized portions of the liver demonstrates a new 7 x 6 cm mass in the right hepatic lobe suspi cious for metastatic disease. Further evaluation with PET/CT is recommended There is no intra or extrahepatic biliary ductal dilatation. The spleen is unremarkable. The visualiz ed pancreas is of normal contour and attenuation characteristics. There is no evidence of adrenal mas s. The visualized portions of the kidneys present no abnormalities. The bony structures are free of lytic or blastic lesions. Multilevel degenerative changes are seen in volving the thoracic spine. Scattered calcifications are seen involving the aorta and visualized kerline r branches compatible with atherosclerosis. IMPRESSION: Biapical fibronodular scarring is seen. There are mildly increased referral interstitial markings no donald within both lungs, suggesting early pulmonary fibrosis New 7 x 6 cm mass in the right hepatic lobe suspicious for metastatic disease. Further evaluation wi PET/CT is recommended Thank you for your kind referral of this patient.
[2016-09-15 05:26] LABS: BASO # 0.1 K/mm3 (0.0-0.2); BASO % 0.9 % (0.0-1.0); EOS % 0.2 % (0.0-3.0); LARGE UNSTAINED CELL # 0.1 K/mm3 (0.0-0.4); LARGE UNSTAINED CELL % 0.6 % (0.0-4.0); LYMPH # 0.9 K/mm3 (1.5-4.5); LYMPH % 7.6 % (24.0-44.0); MEAN CORPUSCULAR HEMOGLOBIN 30.1 pg (27.0-33.0); MEAN CORPUSCULAR HGB CONC 32.2 g/dl (32.0-36.5); MEAN CORPUSCULAR VOLUME 93.5 fl (80.0-96.0); MONO # 0.6 K/mm3 (0.0-0.8); MONO % 5.5 % (0.0-5.0); NEUTROPHILS # 9.9 K/mm3 (1.8-7.7); NEUTROPHILS % 85.3 % (36.0-66.0); PLATELET COUNT, AUTOMATED 178 k/mm3 (150-450); RED CELL DISTRIBUTION WIDTH 14.1 % (11.5-14.5); WHITE BLOOD COUNT 11.6 K/mm3 (4.0-10.0)
[2016-09-15 05:49] LABS: ALBUMIN 3.1 GM/DL (3.2-5.2); ALBUMIN/GLOBULIN RATIO 0.94 (1.00-1.93); BILIRUBIN,TOTAL 0.6 MG/DL (0.2-1.0); CALCIUM LEVEL 8.7 MG/DL (8.8-10.2); CREATININE FOR GFR 1.52 MG/DL (0.70-1.30); GLOMERULAR FILTRATION RATE 46.2 (>35); MAGNESIUM LEVEL 2.5 MG/DL (1.8-2.4); POTASSIUM SERUM 3.7 MEQ/L (3.5-5.1); TOTAL PROTEIN 6.4 GM/DL (6.4-8.2)
[2016-09-15 05:51] LABS: INR 5.53
[2016-09-15] MEDS: BUDESONIDE 180MCG INHALER (PULMICORT FLEXHALER) INH SCH ×2 (08:01→19:58)
[2016-09-15] MEDS: MULTIVITAMINS/MINERALS THERAP 1 TAB PO SCH (08:11)
[2016-09-15] MEDS: AMIODARONE 200 MG TAB (PACERONE) PO SCH (08:11)
[2016-09-15] MEDS: HumaLOG INSULIN (NovoLOG) PER UNIT SC SCH ×4 (08:11→20:15)
[2016-09-15] MEDS: predniSONE 20 MG TAB PO SCH (08:11)
[2016-09-15] MEDS ORDERED: ENOXAPARIN 30 MG/0.3 ML SYR (J1650) SC SCH (09:00)
[2016-09-15] MEDS ORDERED: WARFARIN SOD 2.5 MG TAB PO SCH (09:00)
[2016-09-15] MEDS ORDERED: FUROSEMIDE 40 MG TAB PO SCH (09:00)
--- NOTE | 2016-09-15 09:00 | REP ---
Click: Shortness of breath. Technique: PA and lateral. Comparison: 09/02/2016. Findings: Signed by Rex Bueno MD 09/15/2016 08:52 A
[2016-09-15] MEDS: AZITHROMYCIN 500 MG, VIAL MATE ADAPTER 1 EACH in D5W 250 ML IV SCH (09:16)
--- NOTE | 2016-09-15 09:20 | ECGEPIP ---
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
[2016-09-15] MEDS: cefTRIAXone SOD 1 GM in D5W MINI-BAG PLUS 50 ML IV SCH ×2 (10:20→21:45)
[2016-09-15] MEDS: TAMSULOSIN 0.4 MG CAP PO SCH (17:26)
--- NOTE | 2016-09-15 17:48 | IPN ---
DATE: 09/15/2016 SUBJECTIVE: The patient is seen and examined in the room today. The patient stated he was admitted due to acute worsening of shortness of breath. The patient has been having difficulty with respiration for several days. Initially the patient was treated with a 10-day course of doxycycline. The patient was also given steroids with a tapering dose. However, the patient has not shown any significant improvement of the breathing, and the patient is noted to have notable pallor and weight loss in the last 1-2 weeks. The patient is noticed to have an increased cough; however, he feels that the sputum is stuck in the mid chest and he could not produce any significant sputum. The patient has no difficulty lying flat. OBJECTIVE: VITAL SIGNS: The temperature is 96.2, pulse is 72, respirations 18, blood pressure is 190/98, pulse oximetry 97% on room air. GENERAL: Frequent cough. Mild distress secondary to difficulty breathing. Alert and oriented times three. HEENT: Normocephalic, atraumatic. Extraocular motor grossly intact. NECK: No jugular venous distention (JVD). CARDIOVASCULAR: Positive S1, S2, regular rate. LUNGS: Distant lung sounds. No wheezes can be appreciated. No significant crackles. ABDOMEN: Soft, nontender, nondistended. Bowel sounds present. MUSCULOSKELETAL: No edema, no sign of cyanosis. LABORATORY DATA: WBC is 11.6, hemoglobin is 13.3, hematocrit 41.2, platelet count is 178. Sodium is 142, potassium 3.7, chloride 104, carbon dioxide 27, BUN is 48, creatinine 1.52, GFR is 46.2, fasting glucose is 320. Calcium is 8.7, magnesium 2.5. Total bilirubin is 0.6, AST 31, ALT 41, alkaline phosphatase 126. Total CK is 181. Troponin I 0.14. Total protein 6.4, albumin 3.1. PT is 15.1 and INR is 5.53. MICROBIOLOGY: Blood cultures pending times two sets. IMAGING: CT of the chest without contrast shows biapical fibronodular scarring. Mildly increased interstitial marking within the bilateral lungs suggestive of early pulmonary fibrosis. A new 7.6 cm mass in the right hepatic lobe, suspicious for metastatic disease. ASSESSMENT AND PLAN: 1. Acute respiratory distress. Etiology is unclear. Possible differential includes bronchitis versus chronic obstructive pulmonary disease (COPD) exacerbation versus congestive heart failure (CHF) exacerbation. The patient has a brain natriuretic peptide (BNP) of 225. However, per physical exam, the patient does not have any jugular venous distention (JVD), does not have any lower extremity edema, and does now show significant lung crackles. Fluid overload is not high on the differential. The patient does not have any significant white count, and we will follow with a C-reactive protein (CRP) and since there has been no consolidation or infiltrate noted on the chest imaging, pneumonia is also not on the top of the differential. At this moment, the patient will be continued on the steroids and continued on Rocephin and azithromycin. Actually, the patient did have an increased cough and increased sputum production combined with a history of COPD and bilateral pulmonary fibrosis. I would suspect that the patient is dealing with COPD exacerbation. 2. Elevated troponin. During admission, the patient showed troponin of 0.15. The repeated one shows 0.14. It could be demand ischemia and due to physical stress of the heart. The patient is being monitored on cardiac telemetry. We do not believe the patient has myocardial infarction ([place]). 3. Diabetes with glucose greater than 760. The patient has been receiving intravenous (IV) fluid and insulin. His A1c is 8.1. The patient will continue on the sliding scale and a consistent carbohydrate diet. 4. Chronic diastolic heart failure. The patient has been taking Lasix. The patient currently does not show any sign of fluid overload. 5. Moderate to severe pulmonary hypertension. The patient is on Lasix. 6. Bioprosthetic mitral valve. 7. History of paroxysmal atrial fibrillation/flutter. 8. Chronic obstructive pulmonary disease (COPD). 9. History of hyperlipidemia. 10. History of hypertension. Currently the patient is hypertensive with a blood pressure of 190/98. Repeated blood pressure shows systolic blood pressure of 160s. Currently Lasix will be on hold due to acute on chronic renal failure. If patient remains hypertensive, we will add additional blood pressure medications. 11. Acute on chronic renal failure. When patient was admitted to [facility], the patient had a creatinine of 2.4. Currently the creatinine improved to 1.5. Clinically the patient is dry, not overloaded. We will continue the IV fluid to continue to improve the renal function. Lasix will be on hold at this moment. 12. New hepatic mass. CT scan showed the patient had a 7.6 cm hepatic mass suggestive of metastatic disease. Per patient, the patient had a colonoscopy done a few years ago with no significant findings. Once the patient is more stabilized, we may want to pursue with a liver biopsy. 13. Chronic warfarin use. Currently the patient has supratherapeutic international normalized ratio (INR). Initially around 8:30 p.m. yesterday, the patient had INR of 5, and the patient received 5 mg of vitamin K. This morning around 5 a.m., the repeat INR is 5.53. Currently the patient does not have any sign of acute bleeding. We will repeat the INR to see if the INR is being reversed by the vitamin K, and I will hold the warfarin until the INR has normalized. 14. Deep venous thrombosis (DVT) prophylaxis. The patient is on warfarin. MTDD
[2016-09-15 18:14] LABS: OSMOLALITY URINE 419 MOSM/KG (500-800)
[2016-09-16] VITALS (8 sets, daily range): BP systolic 127–150; BP diastolic 58–74
[2016-09-16] MEDS: CALCIUM CARBONATE 500 MG CHEW U/D PO PRN (01:42)
[2016-09-16 05:44] LABS: BASO % 0.1 % (0.0-1.0); EOS % 0.2 % (0.0-3.0); LARGE UNSTAINED CELL # 0.1 K/mm3 (0.0-0.4); LARGE UNSTAINED CELL % 1.3 % (0.0-4.0); LYMPH # 1.4 K/mm3 (1.5-4.5); LYMPH % 12.9 % (24.0-44.0); MEAN CORPUSCULAR HGB CONC 32.9 g/dl (32.0-36.5); MONO # 0.6 K/mm3 (0.0-0.8); MONO % 5.6 % (0.0-5.0); NEUTROPHILS # 8.8 K/mm3 (1.8-7.7); NEUTROPHILS % 79.8 % (36.0-66.0); PLATELET COUNT, AUTOMATED 168 k/mm3 (150-450); RED CELL DISTRIBUTION WIDTH 13.4 % (11.5-14.5)
[2016-09-16 05:47] LABS: INR 2.42
[2016-09-16 06:01] LABS: ALBUMIN 2.9 GM/DL (3.2-5.2); ALBUMIN/GLOBULIN RATIO 0.94 (1.00-1.93); BILIRUBIN,TOTAL 0.7 MG/DL (0.2-1.0); CALCIUM LEVEL 8.6 MG/DL (8.8-10.2); CREATININE FOR GFR 1.39 MG/DL (0.70-1.30); GLOMERULAR FILTRATION RATE 51.2 (>35); MAGNESIUM LEVEL 2.3 MG/DL (1.8-2.4); POTASSIUM SERUM 3.5 MEQ/L (3.5-5.1)
[2016-09-16] MEDS: BUDESONIDE 180MCG INHALER (PULMICORT FLEXHALER) INH SCH ×2 (07:38→19:02)
[2016-09-16] MEDS: HumaLOG INSULIN (NovoLOG) PER UNIT SC SCH ×4 (07:49→21:10)
--- NOTE | 2016-09-16 08:16 | ECGEPIP ---
Stationary ECG Study [facility] - ED Test Date: 2016-09-14 Pat Name: JOSE HONG Department: Room: [place] [address] Gender: M Calciminer: LETICIA : 1925 Requested By: ALEX KEMP Order Number: [id number] Reading MD: Denise Beach Measurements Intervals [place] Rate: 84 P: 74 [place]: 192 QRS: 80 QRSD: 98 T: 56 QT: 427 QTc: 507 Interpretive Statements SINUS RHYTHM NONSPECIFIC T-WAVE ABNORMALITY PROLONGED QT INTERVAL RIGHT VENTRICULAR CONDUCTION DELAY Electronically Signed On 09-16-2016 8:15:47 EST by Denise Beach
[2016-09-16] MEDS: AZITHROMYCIN 500 MG, VIAL MATE ADAPTER 1 EACH in D5W 250 ML IV SCH (09:14)
[2016-09-16] MEDS: AMIODARONE 200 MG TAB (PACERONE) PO SCH (09:15)
[2016-09-16] MEDS: predniSONE 20 MG TAB PO SCH (09:15)
[2016-09-16] MEDS: MULTIVITAMINS/MINERALS THERAP 1 TAB PO SCH (09:15)
[2016-09-16] MEDS: NS 1,000 ML IV SCH (09:15)
[2016-09-16] MEDS: cefTRIAXone SOD 1 GM in D5W MINI-BAG PLUS 50 ML IV SCH ×2 (11:59→21:11)
--- NOTE | 2016-09-16 12:56 | IPN ---
DATE: 09/16/2016 SUBJECTIVE: The patient is seen and examined in the room today. The patient stated that his breathing shows improvement. The patient is breathing comfortably on room air now. The patient is informed that there is still a 7 cm mass-like lesion at the right hepatic lobe concerning for metastatic disease. Imaging guided biopsy has been discussed with the patient. OBJECTIVE: VITAL SIGNS: Temperature is 97.8, pulse is 71, respirations 18, blood pressure is 146/64, pulse oximetry is 96% on room air. GENERAL: No sign of acute distress. Alert and oriented times three. HEENT: Normocephalic, atraumatic. Extraocular motors grossly intact. CARDIOVASCULAR: Positive S1, S2. Regular rate. LUNGS: Distant lung sounds. There are mild crackles. There are mild bilateral wheezes. ABDOMEN: Soft, nontender, nondistended. Bowel sounds present. MUSCULOSKELETAL: No edema. No cyanosis. LABORATORY DATA: WBC is 11, hemoglobin 13.5, hematocrit 41.1, platelet count is 168. Sodium is 141, potassium 3.5, chloride is 102, carbon dioxide 29, BUN 39, creatinine is 1.39, GFR is 51.2, fasting glucose 175, calcium is 8.6, magnesium 2.3, total bilirubin is 0.7, AST is 29, ALT 35, alkaline phosphatase is 99. Troponin I is 0.15. Total protein 6, albumin 2.9. ASSESSMENT AND PLAN: 1. Acute respiratory distress. The patient may have experienced a chronic obstructive pulmonary disease (COPD) exacerbation. The patient's respiratory symptoms can also be contributed by the congestive heart failure (CHF). The patient is on Rocephin and azithromycin. The patient is also on oral steroids. The patient has nebulizer treatments as needed. The patient has inhaled steroids. The patient currently is breathing comfortably on room air. 2. Mild elevation of troponin may be due to physical stress. Repeat serial troponin in the last 24 to 48 hours has shown the patient is running around 0.15. The patient did not have a myocardial infarction. This is due to physical stress. 3. Diabetes. Initially, the patient presented with glucose in the 60s. The patient received intravenous fluid and insulin. Currently, fasting glucose is improving. The patient's A1/c is 8.1. The patient is on sliding scale and consistent carbohydrate diet. 4. Chronic diastolic heart failure. The patient does not have any sign of fluid overload. 5. History of moderate to severe hypotension. Due to the need of intravenous fluids during admission and worsening renal function, Lasix was on hold. We should start the Lasix at the appropriate time. 6. History of bioprosthetic mitral valve. 7. History of paroxysmal atrial fibrillation/flutter. The patient is on Coumadin. The patient had supratherapeutic INR. Warfarin is on hold. The patient is not on any rate control medications. The patient's heart rate is in target range. The patient is on amiodarone. 8. History of chronic obstructive pulmonary disease (COPD). 9. History of dyslipidemia. On Zocor. 10. History of hypertension. Currently, blood pressure is in the satisfactory range. Besides Lasix, the patient does not have any home blood pressure medications. Lasix is currently on hold due to renal function. Currently, blood pressure is maintained in satisfactory range. 11. Acute on chronic renal failure. Lasix is on hold. GFR is improving. Clinically, the patient looks dehydrated. 12. New hepatic mass. CT scan showed that there is a 7 cm hepatic mass suggestive of metastatic disease. Currently, the patient's warfarin is on hold for supratherapeutic INR. INR was 5.53 yesterday and today it is 2.4. Coumadin continues to be on hold. Once the patient's INR drops to desired range, we may pursue image guided biopsy. 13. Supratherapeutic INR. Warfarin is on hold. 14. Deep vein thrombosis (DVT) prophylaxis. The patient is on warfarin.
[2016-09-16] MEDS: TAMSULOSIN 0.4 MG CAP PO SCH (17:44)
[2016-09-16] MEDS: SIMVASTATIN 20 MG TAB PO SCH (21:00)
--- NOTE | 2016-09-17 03:14 | EDDOCDS ---
Physician Documentation [facility] Name: Wilman Guerra Age: 89 yrs Sex: Male : 1925 Arrival Date: 09/14/2016 Time: 20:13 Bed 8 Private MD: Marcus Rubi Disposition: 09/14/16 23:29 Hospitalization ordered by Reinier Carrington for Observation. Preliminary diagnosis are Acute kidney failure, Shortness of breath, Hyperglycemia, unspecified. - Bed requested for PCU. - Status is Observation. ko2 - Condition is Stable. - Problem is an acute exacerbation. - Symptoms are unchanged. Historical: - Allergies: PENICILLINS (Hives); - Home Meds: 1. amiodarone 200 mg Oral tab 1 tab once daily 2. Coumadin 2.5 mg on --, Sat, 5 mg on -- Oral tab 3. Pulmicort 0.5 mg/2 mL Inhl nbsp 2 mL 2 times per day 4. furosemide 40 mg Oral tab 1 tab once daily if weight is above 139#, pt to take med BID. Pt to take Tues/Sat off from med 5. glipizide 5 mg Oral tab 1 tab once daily 6. Incruse Ellipta 62.5 mcg/actuation inhalation dsdv 1 puff once daily 7. multivitamin Oral tab 1 tab daily 8. simvastatin 20 mg Oral tab 1 tab nightly 9. tamsulosin 0.4 mg oral cp24 1 cap once daily 10. prednisone 20 mg Oral tab 60 mg once daily - PMHx: Atrial Fib; CHF; COPD; coronary arteriosclerosis; Hypercholesterolemia; Hypertension; mitral valve disorder; - PSHx: Appendectomy; Mitral Valve Replacement, Procine; back surgery; Tonsillectomy; Bowel resection; - Social history: Smoking status: Patient states former smoker of tobacco. No barriers to communication noted, The patient speaks fluent Cambodian, Speaks appropriately for age. - Family history: Not pertinent. - : The pt / caregiver states he / she is on anticoagulants: coumadin. Home medication list is obtained from the patient, a discharge med list. - Exposure Risk Screening:: None identified. Vital Signs: 09/14 20:15 BP 178 / 76; Pulse 94; Resp 28 S; Temp 96.5(T); Pulse Ox 99% on R/A; Weight 58.06 kg / dd6 128 lbs (R); Height 5 ft. 9 in. (175.26 cm) (R); 20:50 Pulse 82 MON; Pulse Ox 98% ; ko2 20:51 BP 143 / 69 (auto/); ko2 21:36 BP 169 / 78 (auto/); ko2 21:37 Pulse 84 MON; Pulse Ox 96% ; ko2 21:51 BP 193 / 84 (auto/); ko2 21:51 Pulse 78 MON; Pulse Ox 97% ; ko2 22:06 BP 160 / 83 (auto/); ko2 22:06 Pulse 76 MON; Pulse Ox 96% ; ko2 22:21 BP 171 / 88 (auto/); ko2 22:21 Pulse 82 MON; Resp 22; Pulse Ox 97% ; ko2 23:06 BP 141 / 73 (auto/); ko2 23:06 Pulse 72 MON; Pulse Ox 94% ; ko2 23:21 BP 142 / 74 (auto/); ko2 23:22 Pulse 72 MON; Pulse Ox 94% ; ko2 23:36 BP 144 / 83 (auto/); ko2 23:36 Pulse 74 MON; Pulse Ox 95% ; ko2 23:51 BP 158 / 82 (auto/); ko2 23:51 Pulse 70 MON; Pulse Ox 95% ; ko2 09/15 00:26 BP 125 / 78; Pulse 60; Resp 18; Temp 97; Pulse Ox 98% ; Pain 0/10; ko2 09/14 20:15 Body Mass Index 18.90 (58.06 kg, 175.26 cm) dd6 MDM: 09/14 20:18 -Blood Culture (Adults Only), peripheral from different site, or from device/port/PICC le etc. if present ordered. 20:18 Electroplating Sales Representative/Pulse Ox/q 15 min VS ordered. le 20:18 IV Saline Lock ordered. le 20:18 Oxygen at 4L/Min NC or Home dosage ordered. le 20:18 Rhythm Strip to chart ordered. le 20:19 B-Type Natiuretic Peptide Ordered. EDMS 20:19 Basic Metabolic Profile Ordered. EDMS 20:19 CBC with Diff Ordered. EDMS 20:19 Troponin Ordered. EDMS 20:20 -Blood Culture Ordered. EDMS 20:20 Chest, 2 View (pa\E\lat) Ordered. EDMS 20:20 ECG WITH READING ER PHYS+CARDIAG ordered. EDMS 20:22 UA Ordered. EDMS 20:30 -Blood Culture (Adults Only), peripheral from different site, or from device/port/PICC ml3 etc. if present complete. 20:30 Call Respiratory ordered. le 20:31 INR Ordered. EDMS 20:31 BLOOD CULTURES Ordered. EDMS 20:31 -Arterial Blood Gas Ordered. EDMS 20:33 Call Respiratory complete. ml3 20:34 D-DIMER QUANT Ordered. EDMS 20:55 CBC with Diff Reviewed. le 21:01 -Arterial Blood Gas Reviewed. le 21:02 ALPRAZolam Tablet 0.5 mg PO once ordered. le 21:06 B-Type Natiuretic Peptide Reviewed. le 21:06 NS 0.9% 1000 ml IV at bolus once ordered. le 21:07 Insulin Regular Human 5 units IVP once ordered. le 21:07 Accucheck ordered. le 21:07 Accucheck ordered. le 21:09 Basic Metabolic Profile Reviewed. le 21:09 Troponin Reviewed. le 21:12 BED REQUEST+ADM ordered. EDMS 21:13 Redraw CIP &Troponin (put time in details section) ordered. le 21:36 Redraw CIP &Troponin (put time in details section) complete. ml3 21:37 CARDIAC MARKER PANEL Ordered. EDMS 21:43 D-DIMER QUANT Reviewed. le 21:43 INR Reviewed. le 22:20 Financial registration complete. kf3 22:35 Fingerstick Blood Sugar Ordered. EDMS 22:56 Fingerstick Blood Sugar Reviewed. le 23:21 CARDIAC MARKER PANEL Reviewed. le 23:22 [facility] Payment Agreement was scanned into [employer] and attached to record. kf3 23:28 NS 0.9% 1000 ml IV at 100 mL/hr continuous ordered. le 09/15 00:03 Admission / Observation Status ordered. EDMS 00:03 ELECTROCARDIOGRAM ADULT ordered. EDMS 00:04 CONSISTENT CARBOHYDRATES ordered. EDMS 00:04 PROTHROMBIN TIME PROFILE\E\INR Ordered. EDMS 00:04 CBC WITH DIFFERENTIAL Ordered. EDMS 00:04 COMPLETE COMPHRENSIVE METABOLI Ordered. EDMS 00:04 MAGNESIUM LEVEL Ordered. EDMS 00:07 CARDIAC INJURY PROFILE Ordered. EDMS 00:08 CARDIAC INJURY PROFILE Ordered. EDMS 00:08 CARDIAC INJURY PROFILE Ordered. EDMS 00:22 HEMOGLOBIN A1C Ordered. EDMS 00:24 SPUTUM CULTURE AND GRAM STAIN Ordered. EDMS 01:26 CT Chest without contrast Ordered. EDMS 05:26 T-Sheet-- Draft Copy was scanned into [employer] and attached to record. hs2 10:47 ECG/EKG was scanned into [employer] and attached to record. lg Administered Medications: 09/14 21:20 Drug: NS 0.9% 1000 ml [sodium chloride 0.9 % intravenous solution] Route: IV; Rate: ko2 bolus; Site: left antecubital; 22:34 Follow up: IV Status: Completed infusion; IV Intake: 1000ml ko2 21:20 Drug: Insulin Regular Human 5 units [insulin regular human 100 unit/mL injection ko2 solution (0.05 mL)] {Co-Signature: mlc (Hanny Gibbs RN).} Route: IVP; Site: left antecubital; 21:25 Drug: ALPRAZolam 0.5 mg [alprazolam 0.25 mg tablet (2 tabs)] Route: PO; ko2 23:39 Drug: NS 0.9% 1000 ml [sodium chloride 0.9 % intravenous solution] Route: IV; Rate: 100 ko2 mL/hr; Site: left antecubital; Signatures: Dispatcher [employer] EDGA Popeye Clarke, Reg Reg lg Remigio Lee, Plugger Unit ml3 Mikaeal Bagley, INSURANCE LOSS ADJUSTER INSURANCE LOSS ADJUSTER Lupillo Ayers, Reg Reg kf3 Gentry Gamble RN RN jmb Ogden, Kari, RN RN ko2 Sandrine Lang, Reg Reg hs2 Hanny jimenez The chart was reviewed and I authenticate all verbal orders and agree with the evaluation and treatment provided.Corrections: (The following items were deleted from the chart) 20:33 20:31 D-DIMER QUANT+LAB ordered. EDGA EDMS 09/15 00:09 00:04 CARDIAC INJURY PROFILE ordered. EDMS EDMS 00:09 00:04 CARDIAC INJURY PROFILE ordered. EDMS EDMS 00:09 00:04 CARDIAC INJURY PROFILE ordered. EDGA EDMS Attachments: 09/14 23:22 [facility] kf3 09/15 05:26 T-Sheet-- Draft Copy hs2 10:47 ECG/EKG lg Chart Complete MTDD
--- NOTE | 2016-09-17 03:14 | EDDOCDS ---
Nurse's Notes [facility] Name: Wilman Guerra Age: 89 yrs Sex: Male : 1925 Arrival Date: 09/14/2016 Time: 20:13 Bed 8 Private MD: Marcus Rubi Diagnosis: Acute kidney failure;Shortness of breath;Hyperglycemia, unspecified Presentation: 09/14 20:23 Presenting complaint: Friend states: Patient presented with shortness of breathe, jmb recent cough. Patient weak. Adult Sepsis Screening: The patient does not have new or worsening altered mentation. Patient has a respiratory rate of greater than or equal to 22 (1 point). Systolic blood pressure is greater than 100. Patient has a qSOFA score of 1- Negative Sepsis Screen. Suicide/Homicide risk assessment- the patient denies having any suicidal and/or homicidal ideations and does not present with any other emotional, behavioral or mental health complaints. 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 Transition of care: patient was not received from another setting of care. 20:23 Acuity: YOVANNY Level 3 b 20:23 Method Of Arrival: Wheelchair [facility] Triage Assessment: 20:25 General: Appears ill, uncomfortable, Behavior is appropriate for age. Pain: Denies [facility] pain. Neurological: Level of Consciousness is awake, Oriented to person, place, time. Respiratory: Onset: The symptoms/episode began/occurred gradually, Airway is patent Respiratory effort is labored, Respiratory pattern is regular. GI: Abdomen is non- distended. Derm: Skin is pink, warm & dry. Musculoskeletal: Range of motion intact in all extremities. Historical: - Allergies: PENICILLINS (Hives); - Home Meds: 1. amiodarone 200 mg Oral tab 1 tab once daily 2. Coumadin 2.5 mg on --, Sat, 5 mg on Oral tab 3. Pulmicort 0.5 mg/2 mL Inhl nbsp 2 mL 2 times per day 4. furosemide 40 mg Oral tab 1 tab once daily if weight is above 139#, pt to take med BID. Pt to take Tues/Sat off from med 5. glipizide 5 mg Oral tab 1 tab once daily 6. Incruse Ellipta 62.5 mcg/actuation inhalation dsdv 1 puff once daily 7. multivitamin Oral tab 1 tab daily 8. simvastatin 20 mg Oral tab 1 tab nightly 9. tamsulosin 0.4 mg oral cp24 1 cap once daily 10. prednisone 20 mg Oral tab 60 mg once daily - PMHx: Atrial Fib; CHF; COPD; coronary arteriosclerosis; Hypercholesterolemia; Hypertension; mitral valve disorder; - PSHx: Appendectomy; Mitral Valve Replacement, Procine; back surgery; Tonsillectomy; Bowel resection; - Social history: Smoking status: Patient states former smoker of tobacco. No barriers to communication noted, The patient speaks fluent Bulgarian, Speaks appropriately for age. - Family history: Not pertinent. - : The pt / caregiver states he / she is on anticoagulants: coumadin. Home medication list is obtained from the patient, a discharge med list. - Exposure Risk Screening:: None identified. Screenin/25 00:25 Screening information is obtained from the patient. Fall risk: No risks identified. ko2 Assistance ADL's: requires no assistance with activities of daily living. Abuse/DV Screen: The patient / caregiver reports he/she is: not in a situation that causes fear, pain or injury. Nutritional screening: No deficits noted. Advance Directives: Currently, there is a health care proxy. home support is adequate. Assessment: 09/14 20:25 General: Appears in no apparent distress, Behavior is anxious. Pain: Denies pain. ko2 Neurological: Level of Consciousness is awake, alert. Cardiovascular: Rhythm is. Cardiovascular: Rhythm is atrial fibrillation. Respiratory: Airway is patent Breath sounds are diminished bilaterally. Derm: Skin is normal. 21:36 General: Appears in no apparent distress, Behavior is anxious. Pain: Denies pain. ko2 Neurological: Level of Consciousness is awake, alert. Cardiovascular: Rhythm is sinus rhythm No ectopy. Chest pain is denied. Respiratory: Airway is patent Respiratory effort is even, unlabored. Derm: Skin is normal. 22:29 General: Appears in no apparent distress, comfortable, Behavior is appropriate for age, ko2 cooperative. Pain: Denies pain. Neurological: Level of Consciousness is awake, alert. Respiratory: Airway is patent Respiratory effort is even, unlabored. Derm: Skin is normal. 23:30 General: pt currently resting on stretcher at this time. No concerns.. ko2 09/15 00:24 General: Appears in no apparent distress, comfortable, Behavior is appropriate for age, ko2 cooperative. Pain: Denies pain. Neurological: Level of Consciousness is awake, alert. Respiratory: Airway is patent Respiratory effort is. Derm: Skin is normal. Vital Signs: 09/14 20:15 BP 178 / 76; Pulse 94; Resp 28 S; Temp 96.5(T); Pulse Ox 99% on R/A; Weight 58.06 kg dd6 (R); Height 5 ft. 9 in. (175.26 cm) (R); 20:50 Pulse 82 MON; Pulse Ox 98% ; ko2 20:51 BP 143 / 69 (auto/); ko2 21:36 BP 169 / 78 (auto/); ko2 21:37 Pulse 84 MON; Pulse Ox 96% ; ko2 21:51 BP 193 / 84 (auto/); ko2 21:51 Pulse 78 MON; Pulse Ox 97% ; ko2 22:06 BP 160 / 83 (auto/); ko2 22:06 Pulse 76 MON; Pulse Ox 96% ; ko2 22:21 BP 171 / 88 (auto/); ko2 22:21 Pulse 82 MON; Resp 22; Pulse Ox 97% ; ko2 23:06 BP 141 / 73 (auto/); ko2 23:06 Pulse 72 MON; Pulse Ox 94% ; ko2 23:21 BP 142 / 74 (auto/); ko2 23:22 Pulse 72 MON; Pulse Ox 94% ; ko2 23:36 BP 144 / 83 (auto/); ko2 23:36 Pulse 74 MON; Pulse Ox 95% ; ko2 23:51 BP 158 / 82 (auto/); ko2 23:51 Pulse 70 MON; Pulse Ox 95% ; ko2 09/15 00:26 BP 125 / 78; Pulse 60; Resp 18; Temp 97; Pulse Ox 98% ; Pain 0/10; ko2 09/14 20:15 Body Mass Index 18.90 (58.06 kg, 175.26 cm) dd6 Vitals: 09/14 20:15 Log In Time: September 14, 2016 at 20:13. dd6 20:15 RN notified that patient meets Red Flag criteria. dd6 ED Course: 20:14 Patient visited by Richard Lopez PCA. dd6 20:14 Marcus Rubi is Private Physician. dd6 20:14 Patient moved to Waiting dd6 20:17 Echo Abrams,RN is Primary Nurse. dd6 20:17 Patient moved to 8 dd6 20:18 Mikael[facility] Bag[facility] FNP [facility] le 20:21 Patient visited by Mikaela Bagley FNP. le 20:21 Patient visited by Mikaela Bagley FNP. le 20:24 Triage Initiated jmb 20:37 INR Sent. ko2 20:37 -Blood Culture Sent. ko2 20:37 B-Type Natiuretic Peptide Sent. ko2 20:37 Basic Metabolic Profile Sent. ko2 20:37 CBC with Diff Sent. ko2 20:38 D-DIMER QUANT Sent. ko2 20:38 Inserted saline lock: 20 gauge in left antecubital area and blood collected. The ko2 patient tolerated the procedure well. 20:38 EKG done. (by ED staff). Reviewed by Mikaela KEMP. kb5 20:39 Patient visited by George Fournier PCA. kb5 21:06 Patient visited by Hanny Gibbs RN. mlc 21:06 Notified nurse practitioner of critical lab value, glucose 759. mlc 21:38 Notified nurse practitioner of INR of 5 Mikaela Bagley notified. ko2 21:58 Patient visited by George Fournier PCA. kb5 22:04 UA Sent. ko2 22:05 Patient visited by Echo Abrams,BALDEV. ko2 22:58 Patient visited by George Fournier PCA. kb5 23:22 PENDING SALE TO [facility] Payment Agreement was scanned into [employer] and attached to record. kf3 23:29 Reinier Carrington is Hospitalizing Provider. le 09/15 00:45 The patient / caregiver is instructed regarding the plan of care and ED course. ko2 00:45 No procedures done that require assistance. ko2 05:26 T-Sheet-- Draft Copy was scanned into [employer] and attached to record. hs2 10:47 ECG/EKG was scanned into [employer] and attached to record. lg Administered Medications: 09/14 21:20 Drug: NS 0.9% 1000 ml [sodium chloride 0.9 % intravenous solution] Route: IV; Rate: ko2 bolus; Site: left antecubital; 22:34 Follow up: IV Status: Completed infusion; IV Intake: 1000ml ko2 21:20 Drug: Insulin Regular Human 5 units [insulin regular human 100 unit/mL injection ko2 solution (0.05 mL)] {Co-Signature: mlc (Hanny Gibbs RN).} Route: IVP; Site: left antecubital; 21:25 Drug: ALPRAZolam 0.5 mg [alprazolam 0.25 mg tablet (2 tabs)] Route: PO; ko2 23:39 Drug: NS 0.9% 1000 ml [sodium chloride 0.9 % intravenous solution] Route: IV; Rate: 100 ko2 mL/hr; Site: left antecubital; Intake: 22:34 IV: 1000.00ml; Total: 1000.00ml. ko2 RT: 21:01 ABG's drawn from left radial artery allens test done and positive pressure held for 5 dk minutes no bleeding noted pressure bandage applied specimen sent pt. tolerated well. Order Results: Lab Order: B-Type Natiuretic Peptide; SPEC'M 09/14/16 20:32 Test: BRAIN NATRIURETIC PEPTIDE; Value: 225; Range: <100; Abnormal: Above high normal; Units: PG/ML; Status: F Lab Order: Basic Metabolic Profile; SPEC'M 09/14/16 20:32 Test: GLUCOSE, FASTING; Value: 759; Range: 83-110; Abnormal: Above upper panic limits; Units: MG/DL; Status: F Test: BLOOD UREA NITROGEN; Value: 64; Range: 7-18; Abnormal: Above high normal; Units: MG/DL; Status: F Test: CREATININE FOR GFR; Value: 2.40; Range: 0.70-1.30; Abnormal: Above high normal; Units: MG/DL; Status: F Test: GLOMERULAR FILTRATION RATE; Value: 27.3; Range: >35; Abnormal: Below low normal; Status: F Test: SODIUM LEVEL; Value: 138; Range: 136-145; Units: MEQ/L; Status: F Test: POTASSIUM SERUM; Value: 4.3; Range: 3.5-5.1; Units: MEQ/L; Status: F Test: CHLORIDE LEVEL; Value: 96; Range: 98-107; Abnormal: Below low normal; Units: MEQ/L; Status: F Test: CARBON DIOXIDE LEVEL; Value: 26; Range: 21-32; Units: MEQ/L; Status: F Test: ANION GAP; Value: 16; Range: 8-16; Units: MEQ/L; Status: F Test: CALCIUM LEVEL; Value: 8.9; Range: 8.8-10.2; Units: MG/DL; Status: F Test Note: ; Units are mL/min/1.73 m2 Chronic Kidney Disease Staging per NKF: Stage I & II GFR >=60 Normal to Mildly Decreased Stage III GFR 30-59 Moderately Decreased Stage IV GFR 15-29 Severely Decreased Stage V GFR <15 Very Little GFR Left ESRD GFR <15 on STATION SUPERINTENDENT Lab Order: CBC with Diff; SPEC'M 09/14/16 20:32 Test: WHITE BLOOD COUNT; Value: 9.0; Range: 4.0-10.0; Units: K/mm3; Status: F Test: RED BLOOD COUNT; Value: 5.14; Range: 4.30-6.10; Units: M/mm3; Status: F Test: HEMOGLOBIN; Value: 15.3; Range: 14.0-18.0; Units: g/dl; Status: F Test: HEMATOCRIT; Value: 50.0; Range: 42.0-52.0; Units: %; Status: F Test: MEAN CORPUSCULAR VOLUME; Value: 97.3; Range: 80.0-96.0; Abnormal: Above high normal; Units: fl; Status: F Test: MEAN CORPUSCULAR HEMOGLOBIN; Value: 29.8; Range: 27.0-33.0; Units: pg; Status: F Test: MEAN CORPUSCULAR HGB CONC; Value: 30.7; Range: 32.0-36.5; Abnormal: Below low normal; Units: g/dl; Status: F Test: RED CELL DISTRIBUTION WIDTH; Value: 14.1; Range: 11.5-14.5; Units: %; Status: F Test: PLATELET COUNT, AUTOMATED; Value: 236; Range: 150-450; Units: k/mm3; Status: F Test: NEUTROPHILS %; Value: 89.6; Range: 36.0-66.0; Abnormal: Above high normal; Units: %; Status: F Test: LYMPH %; Value: 7.0; Range: 24.0-44.0; Abnormal: Below low normal; Units: %; Status: F Test: MONO %; Value: 2.1; Range: 0.0-5.0; Units: %; Status: F Test: EOS %; Value: 0.4; Range: 0.0-3.0; Units: %; Status: F Test: BASO %; Value: 0.7; Range: 0.0-1.0; Units: %; Status: F Test: LARGE UNSTAINED CELL %; Value: 0.2; Range: 0.0-4.0; Units: %; Status: F Test: NEUTROPHILS #; Value: 8.1; Range: 1.8-7.7; Abnormal: Above high normal; Units: K/mm3; Status: F Test: LYMPH #; Value: 0.6; Range: 1.5-4.5; Abnormal: Below low normal; Units: K/mm3; Status: F Test: MONO #; Value: 0.2; Range: 0.0-0.8; Units: K/mm3; Status: F Test: EOS #; Value: 0.0; Range: 0.0-0.50; Units: K/mm3; Status: F Test: BASO #; Value: 0.1; Range: 0.0-0.2; Units: K/mm3; Status: F Test: LARGE UNSTAINED CELL #; Value: 0.0; Range: 0.0-0.4; Units: K/mm3; Status: F Lab Order: Troponin; SPEC'M 09/14/16 20:32 Test: TROPONIN I; Value: 0.15; Range: < 0.10; Abnormal: Above high normal; Units: NG/ML; Status: F Test Note: ; Troponin I Reference Interval for [employer] 360 LOCI: 99th Percentile= 0.00-0.045 ng/ml Risk Stratification: <= 0.10 ng/ml Decreased Risk for Adverse Clinical Events. 0.10-1.50 ng/ml Increased Risk for Adverse Clinical Events. Evaluation of additional criterion and/or repeat testing in 2-6 hours is suggested to rule out myocardial damage. >= 1.50 ng/ml Indicative of Myocardial Injury. Lab Order: UA; SPEC'M 09/14/16 22:01 Test: APPEARANCE, URINE; Value: CLEAR; Range: CLEAR; Status: F Test: COLOR, URINE; Value: STRAW; Range: YELLOW; Status: F Test: PH,URINE; Value: 7.0; Range: 5.0-9.0; Units: UNITS; Status: F Test: SPECIFIC GRAVITY URINE AUTO; Value: 1.018; Range: 1.002-1.035; Status: F Test: PROTEIN, URINE AUTO; Value: NEGATIVE; Range: NEGATIVE; Units: mg/dL; Status: F Test: GLUCOSE, URINE (UA) AUTO; Value: 3+; Range: NEGATIVE; Abnormal: Above high normal; Units: mg/dL; Status: F Test: KETONE, URINE AUTO; Value: NEGATIVE; Range: NEGATIVE; Units: mg/dL; Status: F Test: UROBILINOGEN, URINE AUTO; Value: 0.2; Range: 0.0-2.0; Units: mg/dL; Status: F Test: BILIRUBIN, URINE AUTO; Value: NEGATIVE; Range: NEGATIVE; Status: F Test: NITRITE, URINE AUTO; Value: NEGATIVE; Range: NEGATIVE; Status: F Test: LEUKOCYTE ESTERASE, URINE AUTO; Value: NEGATIVE; Range: NEGATIVE; Status: F Test: BLOOD, URINE BLOOD; Value: NEGATIVE; Range: NEGATIVE; Status: F Test: WBC, URINE AUTO; Value: 0; Range: 0-3; Units: /HPF; Status: F Test: RBC, URINE AUTO; Value: 1; Range: 0-3; Units: /HPF; Status: F Test: BACTERIA, URINE AUTO; Value: NEGATIVE; Range: NEGATIVE; Status: F Test: SQUAMOUS EPITHELIAL CELL UR AU; Value: 0; Range: 0-6; Units: /HPF; Status: F Test: HYALINE CAST, URINE AUTO; Value: 0; Range: 0-1; Units: /LPF; Status: F Lab Order: INR; SPEC'M 09/14/16 20:33 Test: PROTHROMBIN TIME; Value: 46.3; Range: 12.3-14.5; Abnormal: Above high normal; Units: SECONDS; Status: F Test: INR; Value: 5.00; Status: F Test Note: ; THERAPUTIC HUMAN INR VALUES INDICATIONS NORMAL RANGES PROPHYLAXIS/TREATMENT OF: VENOUS THROMBOSIS 2.0-3.0 PULMONARY EMBOLISM 2.0-3.0 PREVENTION OF SYSTEMIC EMBOLISM FROM: TISSUE HEART VALVES 2.0-3.0 ACUTE MYOCARDIAL INFARCTION 2.0-3.0 VALVULAR HEART DISEASE 2.0-3.0 ATRIAL FIBRILLATION 2.0-3.0 MECHANICAL VALVES(HIGH RISK) 2.5-3.5 RECURRENT MYOCARDIAL INFARCTION 2.5-3.5 Lab Order: -Arterial Blood Gas; [facility] 09/14/16 20:48 Test: ABG pH (ARTERIAL); Value: 7.581; Range: 7.350-7.450; Abnormal: Above high normal; Units: UNITS; Status: F Test: ABG PARTIAL PRESSURE CO2; Value: 24.8; Range: 35.0-45.0; Abnormal: Below low normal; Units: mmHg; Status: F Test: ABG PARTIAL PRESSURE O2; Value: 72.9; Range: 75.0-100.0; Abnormal: Below low normal; Units: mmHg; Status: F Test: ABG TOTAL CO2; Value: 23.5; Range: 23.0-31.0; Units: MEQ/L; Status: F Test: ABG HCO3; Value: 22.8; Range: 22.0-26.0; Units: MEQ/L; Status: F Test: ABG BASE EXCESS; Value: 2.6; Range: -2.0-2.0; Abnormal: Above high normal; Status: F Test: ABG STANDARD HCO3; Value: 26.7; Range: 22.0-26.0; Abnormal: Above high normal; Units: MEQ/L; Status: F Test: ABG O2 SATURATION; Value: 96.6; Range: 95.0-99.0; Units: %; Status: F Test: ABG DEVICE; Value: NASAL GENNARO; Status: F Lab Order: D-DIMER QUANT; [facility] 09/14/16 20:33 Test: D-DIMER QUANT; Value: 285.2; Range: <500; Units: ng/ml; Status: F Lab Order: CARDIAC MARKER PANEL; [facility] 09/14/16 22:26 Test: CPK CREATINE PHOSPHOKINASE; Value: 241; Range: 39-308; Units: U/L; Status: F Test: CK-MB VALUE MASS; Value: 6.8; Range: 0.0-3.6; Abnormal: Above high normal; Units: NG/ML; Status: F Test: MB/CK RELATIVE INDEX; Value: 2.82; Range: < OR =4; Status: F Test: TROPONIN I; Value: 0.14; Range: < 0.10; Abnormal: Above high normal; Units: NG/ML; Status: F Test Note: ; DIAGNOSIS CRITERIA MMB ng/ml Relative Index (RI) NON-AMI < or = 5 N/A [place] > 5 < or = 4 AMI > 5 > 4 Lab Order: Fingerstick Blood Sugar; [facility] 09/14/16 22:25 Test: BEDSIDE GLUCOSE; Value: 450; Range: 83-110; Abnormal: Above high normal; Units: MG/DL; Status: F Lab Order: HEMOGLOBIN A1C; [facility] 09/14/16 20:32 Test: HEMOGLOBIN A1c; Value: 8.1; Range: 4.5-6.2; Abnormal: Above high normal; Units: %; Status: F Test: ESTIMATED AVERAGE GLUCOSE; Value: 186; Range: 60-110; Abnormal: Above high normal; Units: MG/DL; Status: F Outcome: 23:29 Decision to Hospitalize by Provider. 09/15 00:45 Discharge Assessment: Patient awake, alert and oriented x 3. No cognitive and/or ko2 functional deficits noted. Patient verbalized understanding of disposition instructions. patient administered narcotics - no. The following High Risk Discharge criteria are identified: None. Admitted to PCU accompanied by nurse, accompanied by tech, on monitor, with chart. Condition: stable. No special radiology studies were completed. Admission hand-off: Report Faxed Fax receipt verified by BALDEV [facility]. Property :Personal belongings accompany Pt. 02:13 Patient left the ED. ko2 Signatures: Popeye Clarke, Reg Reg lg Leighann Jones,RT RT dk George Fournier, MANAGER PROGRAM MANAGEMENT MANAGER PROGRAM MANAGEMENT kb5 Mikaela Bagley, DELINQUENT ACCOUNT CLERK DELINQUENT ACCOUNT CLERK Lupillo Ayers, Reg Reg kf3 Richard Lopez, MANAGER PROGRAM MANAGEMENT MANAGER PROGRAM MANAGEMENT dd6 Gentry Gamble RN RN jmb Booth, Mandy, RN RN mlc Ogden, Kari, RN RN ko2 Sandrine Lang, Reg Reg hs2 Hanny jimenez Chart Complete MTDD
--- NOTE | 2016-09-17 03:14 | EDDOCDS ---
Physician Documentation [facility] Name: Wilman Guerra Age: 89 yrs Sex: Male : 1925 Arrival Date: 09/14/2016 Time: 20:13 Bed 8 Private MD: Marcus Rubi Disposition: 09/14/16 23:29 Hospitalization ordered by Reinier Carrington for Observation. Preliminary diagnosis are Acute kidney failure, Shortness of breath, Hyperglycemia, unspecified. - Bed requested for PCU. - Status is Observation. ko2 - Condition is Stable. - Problem is an acute exacerbation. - Symptoms are unchanged. Historical: - Allergies: PENICILLINS (Hives); - Home Meds: 1. amiodarone 200 mg Oral tab 1 tab once daily 2. Coumadin 2.5 mg on --, Sat, 5 mg on -- Oral tab 3. Pulmicort 0.5 mg/2 mL Inhl nbsp 2 mL 2 times per day 4. furosemide 40 mg Oral tab 1 tab once daily if weight is above 139#, pt to take med BID. Pt to take Tues/Sat off from med 5. glipizide 5 mg Oral tab 1 tab once daily 6. Incruse Ellipta 62.5 mcg/actuation inhalation dsdv 1 puff once daily 7. multivitamin Oral tab 1 tab daily 8. simvastatin 20 mg Oral tab 1 tab nightly 9. tamsulosin 0.4 mg oral cp24 1 cap once daily 10. prednisone 20 mg Oral tab 60 mg once daily - PMHx: Atrial Fib; CHF; COPD; coronary arteriosclerosis; Hypercholesterolemia; Hypertension; mitral valve disorder; - PSHx: Appendectomy; Mitral Valve Replacement, Procine; back surgery; Tonsillectomy; Bowel resection; - Social history: Smoking status: Patient states former smoker of tobacco. No barriers to communication noted, The patient speaks fluent Estonian, Speaks appropriately for age. - Family history: Not pertinent. - : The pt / caregiver states he / she is on anticoagulants: coumadin. Home medication list is obtained from the patient, a discharge med list. - Exposure Risk Screening:: None identified. Vital Signs: 09/14 20:15 BP 178 / 76; Pulse 94; Resp 28 S; Temp 96.5(T); Pulse Ox 99% on R/A; Weight 58.06 kg / dd6 128 lbs (R); Height 5 ft. 9 in. (175.26 cm) (R); 20:50 Pulse 82 MON; Pulse Ox 98% ; ko2 20:51 BP 143 / 69 (auto/); ko2 21:36 BP 169 / 78 (auto/); ko2 21:37 Pulse 84 MON; Pulse Ox 96% ; ko2 21:51 BP 193 / 84 (auto/); ko2 21:51 Pulse 78 MON; Pulse Ox 97% ; ko2 22:06 BP 160 / 83 (auto/); ko2 22:06 Pulse 76 MON; Pulse Ox 96% ; ko2 22:21 BP 171 / 88 (auto/); ko2 22:21 Pulse 82 MON; Resp 22; Pulse Ox 97% ; ko2 23:06 BP 141 / 73 (auto/); ko2 23:06 Pulse 72 MON; Pulse Ox 94% ; ko2 23:21 BP 142 / 74 (auto/); ko2 23:22 Pulse 72 MON; Pulse Ox 94% ; ko2 23:36 BP 144 / 83 (auto/); ko2 23:36 Pulse 74 MON; Pulse Ox 95% ; ko2 23:51 BP 158 / 82 (auto/); ko2 23:51 Pulse 70 MON; Pulse Ox 95% ; ko2 09/15 00:26 BP 125 / 78; Pulse 60; Resp 18; Temp 97; Pulse Ox 98% ; Pain 0/10; ko2 09/14 20:15 Body Mass Index 18.90 (58.06 kg, 175.26 cm) dd6 MDM: 09/14 20:18 -Blood Culture (Adults Only), peripheral from different site, or from device/port/PICC le etc. if present ordered. 20:18 Stator Connector/Pulse Ox/q 15 min VS ordered. le 20:18 IV Saline Lock ordered. le 20:18 Oxygen at 4L/Min NC or Home dosage ordered. le 20:18 Rhythm Strip to chart ordered. le 20:19 B-Type Natiuretic Peptide Ordered. EDMS 20:19 Basic Metabolic Profile Ordered. EDMS 20:19 CBC with Diff Ordered. EDMS 20:19 Troponin Ordered. EDMS 20:20 -Blood Culture Ordered. EDMS 20:20 Chest, 2 View (pa\E\lat) Ordered. EDMS 20:20 ECG WITH READING ER PHYS+CARDIAG ordered. EDMS 20:22 UA Ordered. EDMS 20:30 -Blood Culture (Adults Only), peripheral from different site, or from device/port/PICC ml3 etc. if present complete. 20:30 Call Respiratory ordered. le 20:31 INR Ordered. EDMS 20:31 BLOOD CULTURES Ordered. EDMS 20:31 -Arterial Blood Gas Ordered. EDMS 20:33 Call Respiratory complete. ml3 20:34 D-DIMER QUANT Ordered. EDMS 20:55 CBC with Diff Reviewed. le 21:01 -Arterial Blood Gas Reviewed. le 21:02 ALPRAZolam Tablet 0.5 mg PO once ordered. le 21:06 B-Type Natiuretic Peptide Reviewed. le 21:06 NS 0.9% 1000 ml IV at bolus once ordered. le 21:07 Insulin Regular Human 5 units IVP once ordered. le 21:07 Accucheck ordered. le 21:07 Accucheck ordered. le 21:09 Basic Metabolic Profile Reviewed. le 21:09 Troponin Reviewed. le 21:12 BED REQUEST+ADM ordered. EDMS 21:13 Redraw CIP &Troponin (put time in details section) ordered. le 21:36 Redraw CIP &Troponin (put time in details section) complete. ml3 21:37 CARDIAC MARKER PANEL Ordered. EDMS 21:43 D-DIMER QUANT Reviewed. le 21:43 INR Reviewed. le 22:20 Financial registration complete. kf3 22:35 Fingerstick Blood Sugar Ordered. EDMS 22:56 Fingerstick Blood Sugar Reviewed. le 23:21 CARDIAC MARKER PANEL Reviewed. le 23:22 [facility] Payment Agreement was scanned into [employer] and attached to record. kf3 23:28 NS 0.9% 1000 ml IV at 100 mL/hr continuous ordered. le 09/15 00:03 Admission / Observation Status ordered. EDMS 00:03 ELECTROCARDIOGRAM ADULT ordered. EDMS 00:04 CONSISTENT CARBOHYDRATES ordered. EDMS 00:04 PROTHROMBIN TIME PROFILE\E\INR Ordered. EDMS 00:04 CBC WITH DIFFERENTIAL Ordered. EDMS 00:04 COMPLETE COMPHRENSIVE METABOLI Ordered. EDMS 00:04 MAGNESIUM LEVEL Ordered. EDMS 00:07 CARDIAC INJURY PROFILE Ordered. EDMS 00:08 CARDIAC INJURY PROFILE Ordered. EDMS 00:08 CARDIAC INJURY PROFILE Ordered. EDMS 00:22 HEMOGLOBIN A1C Ordered. EDMS 00:24 SPUTUM CULTURE AND GRAM STAIN Ordered. EDMS 01:26 CT Chest without contrast Ordered. EDMS 05:26 T-Sheet-- Draft Copy was scanned into [employer] and attached to record. hs2 10:47 ECG/EKG was scanned into [employer] and attached to record. lg Administered Medications: 09/14 21:20 Drug: NS 0.9% 1000 ml [sodium chloride 0.9 % intravenous solution] Route: IV; Rate: ko2 bolus; Site: left antecubital; 22:34 Follow up: IV Status: Completed infusion; IV Intake: 1000ml ko2 21:20 Drug: Insulin Regular Human 5 units [insulin regular human 100 unit/mL injection ko2 solution (0.05 mL)] {Co-Signature: mlc (Hanny Gibbs RN).} Route: IVP; Site: left antecubital; 21:25 Drug: ALPRAZolam 0.5 mg [alprazolam 0.25 mg tablet (2 tabs)] Route: PO; ko2 23:39 Drug: NS 0.9% 1000 ml [sodium chloride 0.9 % intravenous solution] Route: IV; Rate: 100 ko2 mL/hr; Site: left antecubital; Signatures: Dispatcher [employer] EDRI Popeye Clarke, Reg Reg lg Remigio Lee, Paint Factory Worker Unit ml3 Mikaela Bagley, CHARGE MACHINE OPERATOR CHARGE MACHINE OPERATOR Lupillo Ayers, Reg Reg kf3 eGntry Gamble RN RN jmb Ogden, Kari, RN RN ko2 Sandrine Lang, Reg Reg hs2 Hanny jimenez The chart was reviewed and I authenticate all verbal orders and agree with the evaluation and treatment provided.Corrections: (The following items were deleted from the chart) 20:33 20:31 D-DIMER QUANT+LAB ordered. EDRI EDMS 09/15 00:09 00:04 CARDIAC INJURY PROFILE ordered. EDMS EDMS 00:09 00:04 CARDIAC INJURY PROFILE ordered. EDMS EDMS 00:09 00:04 CARDIAC INJURY PROFILE ordered. EDRI EDMS Attachments: 09/14 23:22 [facility] [place] kf3 09/15 05:26 T-Sheet-- Draft Copy hs2 10:47 ECG/EKG lg Chart Complete MTDD
[2016-09-17 04:00] VITALS: BP 153/72
[2016-09-17 05:50] LABS: BASO # 0.2 K/mm3 (0.0-0.2); BASO % 1.4 % (0.0-1.0); EOS % 0.1 % (0.0-3.0); LARGE UNSTAINED CELL # 0.1 K/mm3 (0.0-0.4); LYMPH # 1.2 K/mm3 (1.5-4.5); LYMPH % 8.8 % (24.0-44.0); MEAN CORPUSCULAR HEMOGLOBIN 30.9 pg (27.0-33.0); MEAN CORPUSCULAR HGB CONC 33.5 g/dl (32.0-36.5); MEAN CORPUSCULAR VOLUME 92.1 fl (80.0-96.0); MONO # 0.7 K/mm3 (0.0-0.8); MONO % 5.6 % (0.0-5.0); NEUTROPHILS % 83.1 % (36.0-66.0); PLATELET COUNT, AUTOMATED 140 k/mm3 (150-450); RED CELL DISTRIBUTION WIDTH 14.2 % (11.5-14.5)
[2016-09-17 06:19] LABS: ALBUMIN 2.7 GM/DL (3.2-5.2); ALBUMIN/GLOBULIN RATIO 0.9 (1.00-1.93); BILIRUBIN,TOTAL 0.5 MG/DL (0.2-1.0); CALCIUM LEVEL 8.5 MG/DL (8.8-10.2); CREATININE FOR GFR 1.23 MG/DL (0.70-1.30); MAGNESIUM LEVEL 2.3 MG/DL (1.8-2.4); TOTAL PROTEIN 5.7 GM/DL (6.4-8.2)
[2016-09-17] MEDS: BUDESONIDE 180MCG INHALER (PULMICORT FLEXHALER) INH SCH ×2 (07:50→20:12)
[2016-09-17 07:57] VITALS: BP 162/75
[2016-09-17] MEDS: AZITHROMYCIN 500 MG, VIAL MATE ADAPTER 1 EACH in D5W 250 ML IV SCH (08:32)
[2016-09-17] MEDS: MULTIVITAMINS/MINERALS THERAP 1 TAB PO SCH (08:33)
[2016-09-17] MEDS: AMIODARONE 200 MG TAB (PACERONE) PO SCH (08:33)
[2016-09-17] MEDS: HumaLOG INSULIN (NovoLOG) PER UNIT SC SCH ×4 (08:33→20:28)
[2016-09-17] MEDS: predniSONE 20 MG TAB PO SCH (08:33)
[2016-09-17] MEDS ORDERED: SLF 3 ML SYR IV PRN (08:45)
[2016-09-17] MEDS: cefTRIAXone SOD 1 GM in D5W MINI-BAG PLUS 50 ML IV SCH ×2 (09:50→21:34)
[2016-09-17] MEDS: SLF 3 ML SYR IV SCH ×2 (11:47→21:34)
[2016-09-17 12:00] VITALS: BP 151/66
[2016-09-17] MEDS ORDERED: PHYTONADIONE 5 MG TAB PO ONE (12:00)
[2016-09-17] MEDS ORDERED: HEPARIN SOD (PORCINE) 5000 UNITS/ML VIAL SQ SCH (14:00)
[2016-09-17 16:00] VITALS: BP 124/53
[2016-09-17] MEDS: TAMSULOSIN 0.4 MG CAP PO SCH (17:12)
[2016-09-17 20:00] VITALS: BP 164/72
[2016-09-17] MEDS: SIMVASTATIN 20 MG TAB PO SCH (20:28)
[2016-09-17] MEDS ORDERED: CARBAMIDE PEROXIDE 6.5% OTIC SOLN 15ML AU SCH (21:00)
--- NOTE | 2016-09-17 22:04 | IPN ---
DATE: 09/17/2016 Patient seen and examined. She was comfortable. Denies any dyspnea. Denies any fevers, chills. Denies any chest pain, pressure, or discomfort. Reported comfortable. Able to ambulate. VITAL SIGNS: Temperature 96, pulse 68, respirations 20, blood pressure 151/66, pulse oximetry 95% on room air. LABORATORY DATA: WBC 12, hemoglobin and hematocrit 12.5/37.1, platelets 140. Chemistry: Sodium 140, potassium 4, chloride 104, bicarbonate 27, BUN 32, creatinine 1.23. PHYSICAL EXAMINATION: GENERAL: Patient alert and oriented times three in no acute distress. HEENT: Normocephalic, atraumatic. CARDIAC: Regular rate and rhythm. Normal S1, S2. PULMONARY: Distant breath sounds. Mild crackles, bilateral base. Minimal wheeze bilateral. ABDOMEN: Soft, nontender, nondistended. Positive bowel sounds. EXTREMITIES: No edema, bilateral lower extremities. ASSESSMENT AND PLAN: This is an 89-year-old male patient with underlying medical history of atrial fibrillation, congestive heart failure (CHF), chronic obstructive pulmonary disease (COPD), coronary artery disease, dyslipidemia, hypertension, mitral valve replacement, pulmonary hypertension, and diabetes. Patient initially admitted for acute respiratory distress secondary to COPD exacerbation. 1. Acute respiratory distress secondary to COPD exacerbation. Oxygen supplementation. Patient on antibiotics. Taper steroids. Nebulizer treatments. Steroid inhalers. 2. Elevation of troponin due to demand ischemia. Serial cardiac enzymes appreciated. 3. Diabetes with hypoglycemia. Insulin according to protocol. Consistent-carbohydrate diet. Followup fingersticks. 4. Chronic diastolic heart failure. No signs of fluid overload. Continue to follow. 5. Hepatic mass. Incidental finding. Patient requires a biopsy. Vitamin K given. Will attempt CT-guided biopsy tomorrow. 6. History of bioprosthetic mitral valve. Will resume anticoagulation when biopsy is complete. 7. History of paroxysmal atrial fibrillation, on Coumadin with supratherapeutic INR, holding Coumadin. Vitamin K given. Will resume vitamin K right after biopsy. Continue home medications. 8. Dyslipidemia. Continue statin. 9. History of hypertension. Monitor blood pressure. Adjust medication as needed. 10. Acute on chronic renal failure, holding Lasix. Follow BUN and creatinine. 11. Supratherapeutic INR, holding Coumadin. 12. Deep vein thrombosis (DVT) prophylaxis. Given patient is given vitamin K, patient started on heparin subcutaneous. Will resume Coumadin after biopsy. DISPOSITION: Pending physical therapy and pending liver biopsy.
[2016-09-18] VITALS (12 sets, daily range): BP systolic 129–168; BP diastolic 60–84
[2016-09-18 05:30] LABS: BASO % 0.1 % (0.0-1.0); EOS % 0.2 % (0.0-3.0); LARGE UNSTAINED CELL # 0.1 K/mm3 (0.0-0.4); LARGE UNSTAINED CELL % 0.9 % (0.0-4.0); LYMPH # 0.9 K/mm3 (1.5-4.5); LYMPH % 8.1 % (24.0-44.0); MEAN CORPUSCULAR HEMOGLOBIN 31.4 pg (27.0-33.0); MEAN CORPUSCULAR HGB CONC 32.9 g/dl (32.0-36.5); MEAN CORPUSCULAR VOLUME 95.5 fl (80.0-96.0); MONO # 0.5 K/mm3 (0.0-0.8); MONO % 4.6 % (0.0-5.0); PLATELET COUNT, AUTOMATED 125 k/mm3 (150-450); RED CELL DISTRIBUTION WIDTH 13.1 % (11.5-14.5); WHITE BLOOD COUNT 11.6 K/mm3 (4.0-10.0)
[2016-09-18 05:40] LABS: INR 1.46
[2016-09-18 05:55] LABS: ALBUMIN 2.7 GM/DL (3.2-5.2); ALBUMIN/GLOBULIN RATIO 0.87 (1.00-1.93); BILIRUBIN,TOTAL 0.4 MG/DL (0.2-1.0); CALCIUM LEVEL 8.7 MG/DL (8.8-10.2); CREATININE FOR GFR 1.32 MG/DL (0.70-1.30); GLOMERULAR FILTRATION RATE 54.4 (>35); MAGNESIUM LEVEL 2.3 MG/DL (1.8-2.4); POTASSIUM SERUM 4.3 MEQ/L (3.5-5.1); TOTAL PROTEIN 5.8 GM/DL (6.4-8.2)
[2016-09-18] MEDS: SLF 3 ML SYR IV SCH ×3 (06:00→21:36)
[2016-09-18] MEDS: BUDESONIDE 180MCG INHALER (PULMICORT FLEXHALER) INH SCH ×2 (07:02→19:55)
[2016-09-18] MEDS: HumaLOG INSULIN (NovoLOG) PER UNIT SC SCH ×4 (07:59→21:00)
[2016-09-18] MEDS: MULTIVITAMINS/MINERALS THERAP 1 TAB PO SCH (08:00)
[2016-09-18] MEDS: predniSONE 20 MG TAB PO SCH (08:00)
[2016-09-18] MEDS: AMIODARONE 200 MG TAB (PACERONE) PO SCH (08:00)
[2016-09-18] MEDS: cefTRIAXone SOD 1 GM in D5W MINI-BAG PLUS 50 ML IV SCH ×2 (10:06→21:36)
[2016-09-18] MEDS: AZITHROMYCIN 250 MG TAB PO SCH (10:07)
[2016-09-18] MEDS ORDERED: LIDOCAINE 1% MDV 20ML VIAL As Ordered ONE (13:02)
--- NOTE | 2016-09-18 16:07 | IPNPDOC ---
Assessment/Plan Date Seen The patient was seen on 09/18/16. Plan / VTE VTE Prophylaxis Ordered?: No VTE Exclusion Pharmacological: Bleeding Risk Plan Plan Text 89 year old male patient with PMH of Afib, diastolic CHF, COPD, CAD, HLD, HTN, bioprosthetic MVR, pulmonary HTN, and DM came in for SOB. Incidentally, he was found to have liver mass. 1. Acute respiratory distress likely from COPD exacerbation Improved. On antibiotics. On oral prednisone and tapered from 40mg to 20mg daily. 2. Liver mass s/p IR-guided biopsy on 09/18/16. Coumadin on hold and came with supratherapeutic INR. Will resume anticoagulation likely either Lovenox or heparin IV with Coumadin after the biopsy, likely tomorrow. 3. Atrial fibrillation / Chronic diastolic CHF / Bioprosthetic MVR / HTN / CAD On amiodarone 200mg po daily. Will resume anticoagulation after the biopsy, likely tomorrow. On simvastatin. 4. Elevated troponin No chest pain. Likely from demand ischemia. 5. Supratherapeutic INR Resolved. Got vitamin K before the biopsy. 6. SAJI on CKD Will monitor BMP. 7. DM On insulin sliding scale. 8. DVT prophylaxis Will resume anticoagulation after the biopsy, likely tomorrow. 9. Disposition TBD. Will get PT. Subjective Review of Systems CC/HPI Patient was seen and examined at bedside. He is in no acute distress. No chest pain or shortness of breath. Underwent IR-guided liver biopsy today without significant complications. General: Denies: Chills, Fatigue, Malaise, Night Sweats, Normal Appetite, Other Symptoms, ROS Unobtainable Constitutional: Denies: Chills, Fatigue, Fever, Lethargy, Malaise, Night Sweats , Other, Weakness, Weight Loss Pulmonary: Denies: Cough, Dyspnea, Other Symptoms, Pleuritic Chest Pain Cardiovascular: Denies: Chest Pain, Edema, Lt Headedness, Orthopnea, Other Symptoms, Palpitations, Paroxysmal Noc. Dyspnea Gastrointestinal: Denies: Abdominal Pain, Constipation, Diarrhea, Hematochezia , Melena, Nausea, Other Symptoms, Vomiting Objective Physical Examination General Exam: Negative: Alert, Cooperative, Mild Distress, Moderate Distress, No Acute Distress, Other, Severe Distress Eye Exam: Positive: Conjunctiva & lids normal, PERRLA, Negative: Ptosis, Sclera icteric ENT Exam: Positive: Atraumatic, Mucous membr. moist/pink, Nares Patent, Pharynx Normal Neck Exam: Positive: Supple, Negative: +2 carotid pulse wo bruit, JVD, Lymphadenopathy, Other, thyromegaly Chest Exam: Positive: Clear to auscultation, Normal air movement, Negative: Diminished, Other, Rales, Rhonchi, Wheezing Heart Exam: Positive: Normal S1, Normal S2, Tachycardic, Negative: Bradycardic, Gallops, Irregular Rhythm, Murmurs, Other, Rate Normal , Regular Rhythm, Rubs Telemetry: Positive: No significant arrhythmia Abdomen Exam: Positive: Normal bowel sounds, Soft, Negative: BS Hyperactive, BS Hypoactive, Hepatospenomegaly, Hernia, Mass, Other, Tenderness Extremity Exam: Negative: Clubbing, Cyanosis, Edema Vital Signs/I&O Vital Signs Date Time Temp Pulse Resp B/P Pulse Ox O2 Delivery O2 Flow Rate FiO2 09/18/16 15:35 97.3 74 18 138/63 95 Room Air I&O- Last 24 Hours up to 6 AM 09/18/16 05:59 Intake Total 2505 ml Output Total 875 ml Balance 1630 ml Laboratory Data Labs 24H Laboratory Tests 2 09/17/16 17:04: Bedside Glucose (Misc Panel) 327H 09/17/16 20:16: Bedside Glucose (Misc Panel) 272H 09/18/16 05:11: Blood Urea Nitrogen 35H, Creatinine 1.32H, Sodium Level 141, Potassium Level 4.3 , Chloride Level 105, Carbon Dioxide Level 28, Calcium Level 8.7L, Aspartate Amino Transf (AST/SGOT) 23, Alanine Aminotransferase (ALT/SGPT) 35, Alkaline Phosphatase 131H, Total Bilirubin 0.4, Total Protein 5.8L, Albumin 2.7L, Albumin /Globulin Ratio 0.87L, Anion Gap 8, White Blood Count 11.6H, Red Blood Count 4.01L, Hemoglobin 12.6L, Hematocrit 38.3L, Mean Corpuscular Volume 95.5, Mean Corpuscular Hemoglobin 31.4, Mean Corpuscular Hemoglobin Concent 32.9, Red Cell Distribution Width 13.1, Platelet Count 125L, Neutrophils (%) (Auto) 86.0H, Lymphocytes (%) (Auto) 8.1L, Monocytes (%) (Auto) 4.6, Eosinophils (%) (Auto) 0.2, Basophils (%) (Auto) 0.1, Neutrophils # (Auto) 10.0H, Lymphocytes # (Auto) 0.9L, Monocytes # (Auto) 0.5, Eosinophils # (Auto) 0.0, Basophils # (Auto) 0.0, Glomerular Filtration Rate 54.4, Large Unclassified Cells # 0.1, Large Unclassified Cells % 0.9, Magnesium Level 2.3, Prothromb Time International Ratio 1.46, Prothrombin Time 17.8H 09/18/16 11:58: Bedside Glucose (Misc Panel) 155H CBC/BMP Laboratory Tests 09/18/16 05:11 Calcium Level 8.7 L, Aspartate Amino Transf (AST/SGOT) 23, Alanine Aminotransferase (ALT/SGPT) 35, Alkaline Phosphatase 131 H, Total Bilirubin 0.4 , Total Protein 5.8 L, Albumin 2.7 L, Red Blood Count 4.01 L, Mean Corpuscular Volume 95.5, Mean Corpuscular Hemoglobin 31.4, Mean Corpuscular Hemoglobin Concent 32.9, Red Cell Distribution Width 13.1, Neutrophils (%) (Auto) 86.0 H, Lymphocytes (%) (Auto) 8.1 L, Monocytes (%) (Auto) 4.6, Eosinophils (%) (Auto) 0.2, Basophils (%) (Auto) 0.1, Neutrophils # (Auto) 10.0 H, Lymphocytes # (Auto ) 0.9 L, Monocytes # (Auto) 0.5, Eosinophils # (Auto) 0.0, Basophils # (Auto) 0.0 FSBS Laboratory Tests Test 09/17/16 17:04 09/17/16 20:16 09/18/16 11:58 Range/Units Bedside Glucose (Misc Panel) 327 272 155 83-110 MG/DL Microbiology Microbiology 09/14/16 Blood Culture - Preliminary, Resulted No Growth after 72 hours. All specime... 09/14/16 Blood Culture - Preliminary, Resulted No Growth after 72 hours. All specime... 09/15/16 Gram Stain - Final, Complete 09/15/16 Sputum Culture - Final, Complete Pseudomonas Aeruginosa BERNARDINO KELLER MD Sep 18, 2016 16:07
--- NOTE | 2016-09-18 16:29 | REP ---
ULTRASOUND GUIDED LIVER BIOPSY: The patient was referred for ultrasound guided liver biopsy. Informed consent was obtained. Under sterile conditions and after satisfactory administration of local anesthesia, using ultrasound guidance a 19-guage introducer needle was placed into the liver mass in the right lobe. Using coaxial technique, a 20-guage biopsy gun was inserted and four core biopsy samples were obtained without difficulty. Needle was removed and hemostasis obtained with no immediate complication. Signed by Misha Wellington MD 09/19/2016 04:49 P
[2016-09-18] MEDS: TAMSULOSIN 0.4 MG CAP PO SCH (17:53)
[2016-09-18] MEDS: SIMVASTATIN 20 MG TAB PO SCH (21:35)
[2016-09-19 02:00] VITALS: BP 145/76
[2016-09-19] MEDS: SLF 3 ML SYR IV SCH ×3 (05:32→22:00)
[2016-09-19 06:00] VITALS: BP 144/89
[2016-09-19 06:58] LABS: BASO % 0.1 % (0.0-1.0); EOS % 0.2 % (0.0-3.0); LARGE UNSTAINED CELL # 0.1 K/mm3 (0.0-0.4); LARGE UNSTAINED CELL % 0.8 % (0.0-4.0); LYMPH # 1.1 K/mm3 (1.5-4.5); LYMPH % 9.2 % (24.0-44.0); MEAN CORPUSCULAR HEMOGLOBIN 30.7 pg (27.0-33.0); MEAN CORPUSCULAR HGB CONC 32.9 g/dl (32.0-36.5); MEAN CORPUSCULAR VOLUME 93.3 fl (80.0-96.0); MONO # 0.5 K/mm3 (0.0-0.8); MONO % 4.2 % (0.0-5.0); NEUTROPHILS # 9.7 K/mm3 (1.8-7.7); NEUTROPHILS % 85.5 % (36.0-66.0); PLATELET COUNT, AUTOMATED 120 k/mm3 (150-450); RED CELL DISTRIBUTION WIDTH 13.3 % (11.5-14.5); WHITE BLOOD COUNT 11.4 K/mm3 (4.0-10.0)
[2016-09-19 07:01] LABS: INR 1.18
[2016-09-19 07:15] LABS: ALBUMIN 2.6 GM/DL (3.2-5.2); ALBUMIN/GLOBULIN RATIO 0.93 (1.00-1.93); ALKALINE PHOSPHATASE 96 U/L (45-117); ALT/SGPT 36 U/L (12-78); ANION GAP 7 MEQ/L (8-16); AST/SGOT 36 U/L (15-37); BILIRUBIN,TOTAL 0.5 MG/DL (0.2-1.0); BLOOD UREA NITROGEN 27 MG/DL (7-18); CALCIUM LEVEL 8.3 MG/DL (8.8-10.2); CARBON DIOXIDE LEVEL 28 MEQ/L (21-32); CHLORIDE LEVEL 107 MEQ/L (98-107); CREATININE FOR GFR 1.13 MG/DL (0.70-1.30); GLOMERULAR FILTRATION RATE > 60.0 (>35); GLUCOSE, FASTING 172 MG/DL (83-110); MAGNESIUM LEVEL 2.3 MG/DL (1.8-2.4); POTASSIUM SERUM 4.2 MEQ/L (3.5-5.1); SODIUM LEVEL 142 MEQ/L (136-145); TOTAL PROTEIN 5.4 GM/DL (6.4-8.2)
[2016-09-19] MEDS: BUDESONIDE 180MCG INHALER (PULMICORT FLEXHALER) INH SCH ×2 (08:09→20:31)
[2016-09-19] MEDS: HumaLOG INSULIN (NovoLOG) PER UNIT SC SCH ×5 (08:58→23:30)
[2016-09-19] MEDS: AZITHROMYCIN 250 MG TAB PO SCH (08:58)
[2016-09-19] MEDS: AMIODARONE 200 MG TAB (PACERONE) PO SCH (08:59)
[2016-09-19] MEDS: MULTIVITAMINS/MINERALS THERAP 1 TAB PO SCH (08:59)
[2016-09-19] MEDS: predniSONE 20 MG TAB PO SCH (08:59)
[2016-09-19 10:00] VITALS: BP 143/76
[2016-09-19] MEDS ORDERED: GASTROGRAFIN SOLUTION 30ML PO ONE (10:45)
[2016-09-19] MEDS: cefTRIAXone SOD 1 GM in D5W MINI-BAG PLUS 50 ML IV SCH ×2 (10:55→22:00)
[2016-09-19] MEDS: ENOXAPARIN 80 MG/0.8 ML SYRINGE (J1650) SC SCH ×2 (10:56→21:38)
[2016-09-19] MEDS ORDERED: GASTROGRAFIN SOLUTION 30ML (Q9963) PO ONE (11:15)
--- NOTE | 2016-09-19 13:24 | IPNPDOC ---
Assessment/Plan Date Seen The patient was seen on 09/19/16. Plan / VTE VTE Prophylaxis Ordered?: Yes Plan Plan Text 89 year old male patient with PMH of Afib, diastolic CHF, COPD, CAD, HLD, HTN, bioprosthetic MVR, pulmonary HTN, and DM came in for SOB. Incidentally, he was found to have liver mass. 1. Acute respiratory distress likely from COPD exacerbation Resolved. On antibiotics. On oral prednisone and tapered from 40mg to 20mg daily. Will decrease prednisone to 10mg tomorrow. 2. 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 Primary cancer seems likely to be from the liver. Will get CT of abdomen and pelvis. Oncology (Dr. Bolanos) was consulted. Will resume anticoagulation with Lovenox with Coumadin since no bleeding. 3. Atrial fibrillation / Chronic diastolic CHF / Bioprosthetic MVR / HTN / CAD On amiodarone 200mg po daily. On simvastatin. Will resume Lovenox with Coumadin. Will give Coumadin 7.5mg today and give 5mg tomorrow. He was on alternating 2.5mg and 5mg at home. He will be likely discharged with Coumadin 2.5mg daily once INR is therapeutic and since he came with supratherapeutic INR. 4. Elevated troponin No chest pain. Likely from demand ischemia. 5. Supratherapeutic INR Resolved. Got vitamin K before the biopsy. 6. SAJI Resolved. 7. DM On insulin sliding scale. 8. DVT prophylaxis On Lovenox with Coumadin. 9. Disposition Once INR is therapeutic. Subjective Review of Systems CC/HPI Patient was seen and examined at bedside. He is in no acute distress and resting comfortably in chair. No chest pain or shortness of breath. No bleeding episodes. Objective Physical Examination General Exam: Negative: Alert, Cooperative, Mild Distress, Moderate Distress, No Acute Distress, Other, Severe Distress Eye Exam: Positive: Conjunctiva & lids normal, PERRLA, Negative: Ptosis, Sclera icteric ENT Exam: Positive: Atraumatic, Mucous membr. moist/pink, Nares Patent, Pharynx Normal Neck Exam: Positive: Supple, Negative: +2 carotid pulse wo bruit, JVD, Lymphadenopathy, Other, thyromegaly Chest Exam: Positive: Clear to auscultation, Normal air movement, Negative: Diminished, Other, Rales, Rhonchi, Wheezing Heart Exam: Positive: Normal S1, Normal S2, Tachycardic, Negative: Bradycardic, Gallops, Irregular Rhythm, Murmurs, Other, Rate Normal , Regular Rhythm, Rubs Telemetry: Positive: No significant arrhythmia Abdomen Exam: Positive: Normal bowel sounds, Soft, Negative: BS Hyperactive, BS Hypoactive, Hepatospenomegaly, Hernia, Mass, Other, Tenderness Extremity Exam: Negative: Clubbing, Cyanosis, Edema Vital Signs/I&O Vital Signs Date Time Temp Pulse Resp B/P Pulse Ox O2 Delivery O2 Flow Rate FiO2 09/19/16 09:00 Room Air 09/19/16 06:00 98.2 92 18 144/89 97 I&O- Last 24 Hours up to 6 AM 09/19/16 06:00 Intake Total 1030 ml Output Total 1275 ml Balance -245 ml Laboratory Data Labs 24H Laboratory Tests 2 09/18/16 19:43: Bedside Glucose (Misc Panel) 333H 09/19/16 06:30: Blood Urea Nitrogen 27H, Creatinine 1.13, Sodium Level 142, Potassium Level 4.2 , Chloride Level 107, Carbon Dioxide Level 28, Calcium Level 8.3L, Aspartate Amino Transf (AST/SGOT) 36, Alanine Aminotransferase (ALT/SGPT) 36, Alkaline Phosphatase 96, Total Bilirubin 0.5, Total Protein 5.4L, Albumin 2.6L, Albumin/ Globulin Ratio 0.93L, Anion Gap 7L, White Blood Count 11.4H, Red Blood Count 3.90L, Hemoglobin 12.0L, Hematocrit 36.4L, Mean Corpuscular Volume 93.3, Mean Corpuscular Hemoglobin 30.7, Mean Corpuscular Hemoglobin Concent 32.9, Red Cell Distribution Width 13.3, Platelet Count 120L, Neutrophils (%) (Auto) 85.5H, Lymphocytes (%) (Auto) 9.2L, Monocytes (%) (Auto) 4.2, Eosinophils (%) (Auto) 0.2, Basophils (%) (Auto) 0.1, Neutrophils # (Auto) 9.7H, Lymphocytes # (Auto) 1.1L, Monocytes # (Auto) 0.5, Eosinophils # (Auto) 0.0, Basophils # (Auto) 0.0, Glomerular Filtration Rate > 60.0, Large Unclassified Cells # 0.1, Large Unclassified Cells % 0.8, Magnesium Level 2.3, Prothromb Time International Ratio 1.18, Prothrombin Time 15.1H 09/19/16 12:23: Bedside Glucose (Misc Panel) 274H CBC/BMP Laboratory Tests 09/19/16 06:30 Calcium Level 8.3 L, Aspartate Amino Transf (AST/SGOT) 36, Alanine Aminotransferase (ALT/SGPT) 36, Alkaline Phosphatase 96, Total Bilirubin 0.5, Total Protein 5.4 L, Albumin 2.6 L, Red Blood Count 3.90 L, Mean Corpuscular Volume 93.3, Mean Corpuscular Hemoglobin 30.7, Mean Corpuscular Hemoglobin Concent 32.9, Red Cell Distribution Width 13.3, Neutrophils (%) (Auto) 85.5 H, Lymphocytes (%) (Auto) 9.2 L, Monocytes (%) (Auto) 4.2, Eosinophils (%) (Auto) 0.2, Basophils (%) (Auto) 0.1, Neutrophils # (Auto) 9.7 H, Lymphocytes # (Auto) 1.1 L, Monocytes # (Auto) 0.5, Eosinophils # (Auto) 0.0, Basophils # (Auto) 0.0 FSBS Laboratory Tests Test 09/18/16 19:43 09/19/16 12:23 Range/Units Bedside Glucose (Misc Panel) 333 274 83-110 MG/DL Microbiology Microbiology 09/14/16 Blood Culture - Preliminary, Resulted No Growth after 72 hours. All specime... 09/14/16 Blood Culture - Preliminary, Resulted No Growth after 72 hours. All specime... 09/15/16 Gram Stain - Final, Complete 09/15/16 Sputum Culture - Final, Complete Pseudomonas Aeruginosa BERNARDINO KELLER MD Sep 19, 2016 13:24
[2016-09-19] MEDS ORDERED: ISOVUE-370 76% 100ML VIAL (Q9967) As Ordered ONE (13:36)
[2016-09-19 14:00] VITALS: BP 133/58
--- NOTE | 2016-09-19 16:29 | REP ---
CT study of the abdomen and pelvis with IV and oral contrast: History: Adenocarcinoma the liver. Comparison is made with CT study of the abdomen and pelvis from February 22, 2014. CT contrast dose: 100 ml of Isovue [address] findings: Preliminary digital poultry killer radiograph is unremarkable. Abdominal CT images confirm the presence of a heterogeneously enhancing slightly hypodense mass in the posterior segment of the right lobe of the liver measuring 6.9 cm in greatest oblique to transverse dimension by 5.2 cm anterior to posterior by 7.3 cm in craniocaudal span. There is some indentation or volume loss in the adjacent capsular surface of the liver posteriorly. No other focal liver lesion is seen. No splenic lesion is observed. No adrenal mass is seen. No pancreatic mass lesion is seen on pre or postcontrast images. The kidneys enhance symmetrically are morphologically intact. There is some renal sinus fatty hypertrophy which is a normal variant seen with aging. Normal caliber aorta is seen. Small and large intestinal bowel loops are unremarkable in the abdomen. Urinary bladder, prostate and seminal vesicles are unremarkable. No abdominal wall defect is appreciated. No bony destructive lesion is seen. Impression: Solitary heterogeneously enhancing 7.4 cm mass in the posterior segment of the right lobe of the liver. No other evidence of mass or adenopathy. Signed by Jose Francis MD 09/19/2016 04:38 P
[2016-09-19] MEDS ORDERED: WARFARIN SOD 7.5 MG TAB PO ONE (17:00)
[2016-09-19] MEDS: TAMSULOSIN 0.4 MG CAP PO SCH (18:26)
[2016-09-19] MEDS: SIMVASTATIN 20 MG TAB PO SCH (21:37)
[2016-09-19 22:00] VITALS: BP_SYST 103; BP_SYST 172; BP_DIAS 62; BP_DIAS 68
[2016-09-20 02:00] VITALS: BP 165/62
[2016-09-20] MEDS: CALCIUM CARBONATE 500 MG CHEW U/D PO PRN (03:14)
[2016-09-20] MEDS: SLF 3 ML SYR IV SCH ×3 (05:35→21:06)
[2016-09-20 06:00] VITALS: BP 160/77
[2016-09-20 06:53] LABS: BASO % 0.1 % (0.0-1.0); EOS % 0.4 % (0.0-3.0); LARGE UNSTAINED CELL # 0.1 K/mm3 (0.0-0.4); LYMPH # 1.1 K/mm3 (1.5-4.5); LYMPH % 9.7 % (24.0-44.0); MEAN CORPUSCULAR HEMOGLOBIN 31.7 pg (27.0-33.0); MONO # 0.7 K/mm3 (0.0-0.8); MONO % 5.8 % (0.0-5.0); NEUTROPHILS # 9.5 K/mm3 (1.8-7.7); PLATELET COUNT, AUTOMATED 119 k/mm3 (150-450); RED CELL DISTRIBUTION WIDTH 13.4 % (11.5-14.5); WHITE BLOOD COUNT 11.5 K/mm3 (4.0-10.0)
[2016-09-20 06:56] LABS: INR 1.18
[2016-09-20] MEDS: BUDESONIDE 180MCG INHALER (PULMICORT FLEXHALER) INH SCH ×3 (07:16→20:20)
[2016-09-20 07:17] LABS: ALBUMIN 2.8 GM/DL (3.2-5.2); ALBUMIN/GLOBULIN RATIO 0.9 (1.00-1.93); BILIRUBIN,TOTAL 0.5 MG/DL (0.2-1.0); CALCIUM LEVEL 8.9 MG/DL (8.8-10.2); CREATININE FOR GFR 1.23 MG/DL (0.70-1.30); MAGNESIUM LEVEL 2.4 MG/DL (1.8-2.4); POTASSIUM SERUM 4.4 MEQ/L (3.5-5.1); TOTAL PROTEIN 5.9 GM/DL (6.4-8.2)
[2016-09-20] MEDS: ENOXAPARIN 80 MG/0.8 ML SYRINGE (J1650) SC SCH ×2 (07:29→20:58)
[2016-09-20] MEDS: HumaLOG INSULIN (NovoLOG) PER UNIT SC SCH ×4 (07:29→20:59)
[2016-09-20] MEDS: MULTIVITAMINS/MINERALS THERAP 1 TAB PO SCH (07:30)
[2016-09-20] MEDS: AZITHROMYCIN 250 MG TAB PO SCH (07:30)
[2016-09-20] MEDS: AMIODARONE 200 MG TAB (PACERONE) PO SCH (07:30)
[2016-09-20] MEDS: predniSONE 20 MG TAB PO SCH (07:30)
[2016-09-20] MEDS ORDERED: BUDESONIDE 180MCG INHALER (PULMICORT FLEXHALER) INH SCH (07:38)
[2016-09-20] MEDS: cefTRIAXone SOD 1 GM in D5W MINI-BAG PLUS 50 ML IV SCH ×2 (09:39→21:01)
--- NOTE | 2016-09-20 11:23 | IPNPDOC ---
Assessment/Plan Date Seen The patient was seen on 09/20/16. Plan / VTE VTE Prophylaxis Ordered?: Yes Plan Advance Directives: DNR Plan Text 89 year old male patient with PMH of Afib, diastolic CHF, COPD, CAD, HLD, HTN, bioprosthetic MVR, pulmonary HTN, and DM came in for SOB. Incidentally, he was found to have liver mass which turned out to be a poorly differentiated adenocarcinoma. 1. Acute respiratory distress likely from COPD exacerbation Resolved. On antibiotics. On oral prednisone and tapered from 20mg to 10mg today. 2. 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 Primary seems likely to be from the liver per the pathology. CT of abdomen and pelvis showed solitary heterogeneously enhancing 7.4 cm mass in the posterior segment of the right lobe of the liver, but no other evidence of mass or adenopathy. Oncology (Dr. Bolanos) was consulted. 3. Atrial fibrillation / Chronic diastolic CHF / Bioprosthetic MVR / HTN / CAD On amiodarone 200mg po daily. On simvastatin. On Lovenox with Coumadin. Will stop Lovenox once INR is therapeutic. Got Coumadin 7.5mg on 09/19/16 and will give 7.5mg today. Will decide the dose tomorrow depending on his INR. He was on alternating 2.5mg and 5mg of Coumadin at home. He will be likely discharged with Coumadin 2.5mg daily once INR is therapeutic since he came with supratherapeutic INR with the home dose. 4. Elevated troponin No chest pain. Likely from demand ischemia. 5. Supratherapeutic INR Resolved. 6. SAJI Resolved. 7. DM On insulin sliding scale. 8. DVT prophylaxis On Lovenox with Coumadin, will stop Lovenox once INR is therapeutic. 9. Disposition Once INR is therapeutic. Subjective Review of Systems CC/HPI Patient was seen and examined at bedside. He is in no acute distress and resting comfortably in bed and chair. No chest pain or shortness of breath. He is in good mood and spirit though he knows that he is just diagnosed with liver cancer. Objective Physical Examination General Exam: Negative: Alert, Cooperative, Mild Distress, Moderate Distress, No Acute Distress, Other, Severe Distress Eye Exam: Positive: Conjunctiva & lids normal, PERRLA, Negative: Ptosis, Sclera icteric ENT Exam: Positive: Atraumatic, Mucous membr. moist/pink, Nares Patent, Pharynx Normal Neck Exam: Positive: Supple, Negative: +2 carotid pulse wo bruit, JVD, Lymphadenopathy, Other, thyromegaly Chest Exam: Positive: Clear to auscultation, Normal air movement, Negative: Diminished, Other, Rales, Rhonchi, Wheezing Heart Exam: Positive: Normal S1, Normal S2, Tachycardic, Negative: Bradycardic, Gallops, Irregular Rhythm, Murmurs, Other, Rate Normal , Regular Rhythm, Rubs Telemetry: Positive: No significant arrhythmia Abdomen Exam: Positive: Normal bowel sounds, Soft, Negative: BS Hyperactive, BS Hypoactive, Hepatospenomegaly, Hernia, Mass, Other, Tenderness Extremity Exam: Negative: Clubbing, Cyanosis, Edema Vital Signs/I&O Vital Signs Date Time Temp Pulse Resp B/P Pulse Ox O2 Delivery O2 Flow Rate FiO2 09/20/16 09:15 Room Air 09/20/16 06:00 98.0 79 16 160/77 94 I&O- Last 24 Hours up to 6 AM 09/20/16 06:00 Intake Total 1060 ml Output Total 1400 ml Balance -340 ml Laboratory Data Labs 24H Laboratory Tests 2 09/19/16 12:23: Bedside Glucose (Misc Panel) 274H 09/19/16 17:01: Bedside Glucose (Misc Panel) 388H 09/19/16 23:28: Bedside Glucose (Misc Panel) 287H 09/20/16 06:36: Blood Urea Nitrogen 27H, Creatinine 1.23, Sodium Level 142, Potassium Level 4.4 , Chloride Level 106, Carbon Dioxide Level 28, Calcium Level 8.9, Aspartate Amino Transf (AST/SGOT) 42H, Alanine Aminotransferase (ALT/SGPT) 43, Alkaline Phosphatase 118H, Total Bilirubin 0.5, Total Protein 5.9L, Albumin 2.8L, Albumin /Globulin Ratio 0.90L, Anion Gap 8, White Blood Count 11.5H, Red Blood Count 4.00L, Hemoglobin 12.7L, Hematocrit 37.2L, Mean Corpuscular Volume 93.0, Mean Corpuscular Hemoglobin 31.7, Mean Corpuscular Hemoglobin Concent 34.0, Red Cell Distribution Width 13.4, Platelet Count 119L, Neutrophils (%) (Auto) 83.0H, Lymphocytes (%) (Auto) 9.7L, Monocytes (%) (Auto) 5.8H, Eosinophils (%) (Auto) 0.4, Basophils (%) (Auto) 0.1, Neutrophils # (Auto) 9.5H, Lymphocytes # (Auto) 1.1L, Monocytes # (Auto) 0.7, Eosinophils # (Auto) 0.0, Basophils # (Auto) 0.0, Glomerular Filtration Rate 59.0, Large Unclassified Cells # 0.1, Large Unclassified Cells % 1.0, Magnesium Level 2.4, Prothromb Time International Ratio 1.18, Prothrombin Time 15.1H CBC/BMP Laboratory Tests 09/20/16 06:36 Calcium Level 8.9, Aspartate Amino Transf (AST/SGOT) 42 H, Alanine Aminotransferase (ALT/SGPT) 43, Alkaline Phosphatase 118 H, Total Bilirubin 0.5 , Total Protein 5.9 L, Albumin 2.8 L, Red Blood Count 4.00 L, Mean Corpuscular Volume 93.0, Mean Corpuscular Hemoglobin 31.7, Mean Corpuscular Hemoglobin Concent 34.0, Red Cell Distribution Width 13.4, Neutrophils (%) (Auto) 83.0 H, Lymphocytes (%) (Auto) 9.7 L, Monocytes (%) (Auto) 5.8 H, Eosinophils (%) (Auto ) 0.4, Basophils (%) (Auto) 0.1, Neutrophils # (Auto) 9.5 H, Lymphocytes # (Auto ) 1.1 L, Monocytes # (Auto) 0.7, Eosinophils # (Auto) 0.0, Basophils # (Auto) 0.0 FSBS Laboratory Tests Test 09/19/16 12:23 09/19/16 17:01 09/19/16 23:28 Range/Units Bedside Glucose (Misc Panel) 274 388 287 83-110 MG/DL Microbiology Microbiology 09/14/16 Blood Culture - Final, Complete NO GROWTH AFTER 5 DAYS 09/14/16 Blood Culture - Final, Complete NO GROWTH AFTER 5 DAYS 09/15/16 Gram Stain - Final, Complete 09/15/16 Sputum Culture - Final, Complete Pseudomonas Aeruginosa BERNARDINO KELLER MD Sep 20, 2016 11:23
[2016-09-20 14:00] VITALS: BP 128/77
[2016-09-20] MEDS: SIMETHICONE 80 MG CHEW TAB PO SCH ×2 (15:28→20:59)
[2016-09-20] MEDS ORDERED: WARFARIN SOD 7.5 MG TAB PO ONE (17:00)
[2016-09-20] MEDS: TAMSULOSIN 0.4 MG CAP PO SCH (18:36)
[2016-09-20] MEDS: SIMVASTATIN 20 MG TAB PO SCH (21:00)
[2016-09-20 22:00] VITALS: BP 153/65
[2016-09-21 02:00] VITALS: BP 133/69
[2016-09-21] MEDS: SLF 3 ML SYR IV SCH ×3 (05:03→21:05)
[2016-09-21 05:56] LABS: BASO % 0.4 % (0.0-1.0); EOS % 0.5 % (0.0-3.0); LARGE UNSTAINED CELL # 0.1 K/mm3 (0.0-0.4); LARGE UNSTAINED CELL % 1.1 % (0.0-4.0); LYMPH # 1.2 K/mm3 (1.5-4.5); LYMPH % 10.3 % (24.0-44.0); MEAN CORPUSCULAR HEMOGLOBIN 31.1 pg (27.0-33.0); MEAN CORPUSCULAR HGB CONC 33.7 g/dl (32.0-36.5); MEAN CORPUSCULAR VOLUME 92.4 fl (80.0-96.0); MONO # 0.6 K/mm3 (0.0-0.8); MONO % 5.6 % (0.0-5.0); NEUTROPHILS # 8.9 K/mm3 (1.8-7.7); NEUTROPHILS % 82.2 % (36.0-66.0); PLATELET COUNT, AUTOMATED 111 k/mm3 (150-450); RED CELL DISTRIBUTION WIDTH 14.3 % (11.5-14.5); WHITE BLOOD COUNT 10.9 K/mm3 (4.0-10.0)
[2016-09-21 06:00] VITALS: BP 112/59
[2016-09-21 06:00] LABS: INR 1.62
[2016-09-21 06:26] LABS: ALBUMIN 2.5 GM/DL (3.2-5.2); ALBUMIN/GLOBULIN RATIO 0.89 (1.00-1.93); ALKALINE PHOSPHATASE 97 U/L (45-117); ALT/SGPT 39 U/L (12-78); ANION GAP 8 MEQ/L (8-16); AST/SGOT 36 U/L (15-37); BILIRUBIN,TOTAL 0.3 MG/DL (0.2-1.0); BLOOD UREA NITROGEN 25 MG/DL (7-18); CALCIUM LEVEL 8.4 MG/DL (8.8-10.2); CARBON DIOXIDE LEVEL 28 MEQ/L (21-32); CHLORIDE LEVEL 105 MEQ/L (98-107); GLOMERULAR FILTRATION RATE > 60.0 (>35); GLUCOSE, FASTING 180 MG/DL (83-110); MAGNESIUM LEVEL 2.2 MG/DL (1.8-2.4); POTASSIUM SERUM 4.4 MEQ/L (3.5-5.1); SODIUM LEVEL 141 MEQ/L (136-145); TOTAL PROTEIN 5.3 GM/DL (6.4-8.2)
[2016-09-21] MEDS: BUDESONIDE 180MCG INHALER (PULMICORT FLEXHALER) INH SCH ×2 (07:06→19:24)
[2016-09-21] MEDS ORDERED: FUROSEMIDE 40 MG TAB PO SCH (09:00)
[2016-09-21] MEDS: cefTRIAXone SOD 1 GM in D5W MINI-BAG PLUS 50 ML IV SCH ×2 (09:25→21:02)
[2016-09-21] MEDS: HumaLOG INSULIN (NovoLOG) PER UNIT SC SCH ×4 (09:25→21:04)
[2016-09-21] MEDS: AZITHROMYCIN 250 MG TAB PO SCH (09:26)
[2016-09-21] MEDS: SIMETHICONE 80 MG CHEW TAB PO SCH ×2 (09:26→21:02)
[2016-09-21] MEDS: predniSONE 10 MG TAB PO SCH (09:26)
[2016-09-21] MEDS: ENOXAPARIN 80 MG/0.8 ML SYRINGE (J1650) SC SCH ×2 (09:26→21:04)
[2016-09-21] MEDS: AMIODARONE 200 MG TAB (PACERONE) PO SCH (09:26)
[2016-09-21] MEDS: MULTIVITAMINS/MINERALS THERAP 1 TAB PO SCH (09:26)
[2016-09-21 10:00] VITALS: BP 145/66
[2016-09-21 14:00] VITALS: BP 135/76
--- NOTE | 2016-09-21 14:10 | IPN ---
DATE: 09/21/2016 Patient seen and examined. Denies any chest pain, pressure or discomfort. Denies any shortness of breath. Denies any abdominal pain. Currently comfortable, in no acute distress. Denies any fevers or chills. VITAL SIGNS: Temperature 97.8, pulse 81, respirations 18, blood pressure 145/66, pulse oximetry 98% on room air. LABORATORY DATA: WBC 10.9, hemoglobin and hematocrit 11.5/34, platelets 111. Chemistry: Sodium 141, potassium 4.4, chloride 105, bicarbonate 28, BUN 25, creatinine 1.1, INR 1.62. PHYSICAL EXAMINATION: GENERAL: Patient alert and oriented times three, in no acute distress. HEENT: Normocephalic, atraumatic. PULMONARY: Bilaterally clear to auscultation. Distant breath sounds. No wheeze. CARDIAC: Regular rate and rhythm. Normal S1, S2. ABDOMEN: Soft, nontender, nondistended. Positive bowel sounds. EXTREMITIES: No edema bilateral lower extremities. ASSESSMENT AND PLAN: This is an 89-year-old male patient with underlying medical history of atrial fibrillation, congestive heart failure, chronic obstructive pulmonary disease (COPD), coronary artery disease, dyslipidemia, hypertension, mitral valve replacement, pulmonary hypertension, type 2 diabetes. 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 Problems: 1. Acute respiratory distress secondary to COPD. Oxygen supplementation. The patient is on antibiotics, taper steroids, nebulizer treatment, Pulmicort inhaler. Continue antibiotics; patient will be finishing a course. 2. Elevated troponin, demand ischemia. Cardiac enzyme appreciated. 3. Adenocarcinoma of the liver, status post biopsy. Dr. Bolanos of hematology/oncology consulted. Patient preliminarily does not want any chemotherapy (chemo) but is still deciding. The patient stated that he does not want anything too aggressive. 4. Diabetes, type 2. Patient was hypoglycemic on admission. Insulin per protocol. Consistent carbohydrate diet. Follow fingersticks. 5. Chronic diastolic heart failure. No signs of fluid overload. Continue to follow. 6. History of bioprosthetic mitral valve. Will resume anticoagulation. 7. Paroxysmal atrial fibrillation. Patient on Lovenox, bridged to Coumadin. Coumadin given. Followup INR. Continue home medications. 8. Dyslipidemia. Continue statin. 9. History of hypertension. Monitor blood pressure. Continue home medications. 10. Acute on chronic renal failure. Followup BUN and creatinine. Withholding Lasix. Fluid restriction. 11. Supratherapeutic INR. Currently patient has subtherapeutic INR given Coumadin was reversed by giving vitamin K. Continue Coumadin. 12. Deep vein thrombosis (DVT) prophylaxis. Patient was on Lovenox, bridged to Coumadin. DISPOSITION: Pending therapeutic INR and pending physical therapy.
[2016-09-21] MEDS ORDERED: WARFARIN SOD 5 MG TAB PO ONE (17:00)
[2016-09-21] MEDS: TAMSULOSIN 0.4 MG CAP PO SCH (17:36)
[2016-09-21 18:00] VITALS: BP 158/73
[2016-09-21] MEDS: SIMVASTATIN 20 MG TAB PO SCH (21:02)
[2016-09-21 22:00] VITALS: BP 139/56
[2016-09-22 02:00] VITALS: BP 145/59
[2016-09-22 04:00] VITALS: BP 145/59
[2016-09-22] MEDS: SLF 3 ML SYR IV SCH ×3 (05:55→22:00)
[2016-09-22 06:00] VITALS: BP 156/52
[2016-09-22 06:25] LABS: INR 2.36
[2016-09-22 06:28] LABS: MEAN CORPUSCULAR HEMOGLOBIN 30.7 pg (27.0-33.0); MEAN CORPUSCULAR HGB CONC 33.1 g/dl (32.0-36.5); MEAN CORPUSCULAR VOLUME 92.7 fl (80.0-96.0); RED CELL DISTRIBUTION WIDTH 13.4 % (11.5-14.5); WHITE BLOOD COUNT 8.6 K/mm3 (4.0-10.0)
[2016-09-22 06:37] LABS: CALCIUM LEVEL 8.2 MG/DL (8.8-10.2); CREATININE FOR GFR 1.24 MG/DL (0.70-1.30); GLOMERULAR FILTRATION RATE 58.4 (>35); MAGNESIUM LEVEL 2.1 MG/DL (1.8-2.4); POTASSIUM SERUM 4.1 MEQ/L (3.5-5.1)
[2016-09-22] MEDS: BUDESONIDE 180MCG INHALER (PULMICORT FLEXHALER) INH SCH ×2 (08:20→19:04)
[2016-09-22] MEDS: cefTRIAXone SOD 1 GM in D5W MINI-BAG PLUS 50 ML IV SCH (09:22)
[2016-09-22] MEDS: predniSONE 10 MG TAB PO SCH (09:23)
[2016-09-22] MEDS: MULTIVITAMINS/MINERALS THERAP 1 TAB PO SCH (09:23)
[2016-09-22] MEDS: HumaLOG INSULIN (NovoLOG) PER UNIT SC SCH ×4 (09:23→21:00)
[2016-09-22] MEDS: FUROSEMIDE 20 MG TAB PO SCH (09:23)
[2016-09-22] MEDS: AZITHROMYCIN 250 MG TAB PO SCH (09:24)
[2016-09-22] MEDS: AMIODARONE 200 MG TAB (PACERONE) PO SCH (09:24)
[2016-09-22] MEDS: SIMETHICONE 80 MG CHEW TAB PO SCH ×2 (09:24→20:43)
[2016-09-22 10:00] VITALS: BP 144/57
--- NOTE | 2016-09-22 13:44 | IPN ---
DATE: 09/22/2016 Patient seen and examined. No acute events overnight. Able to ambulate with a walker. Denies any chest pain, pressure, discomfort. Denies any significant dyspnea. Denies any fevers or chills. Tolerating diet. VITAL SIGNS: Temperature 98.8, pulse 80, respirations 14, blood pressure 156/52, pulse oximetry 97% on room air. LABORATORY DATA: WBC 8.6, hemoglobin and hematocrit 11/33, platelets 106. Chemistry: Sodium 143, potassium 4.1, chloride 105, bicarbonate 28, BUN 25, creatinine 1.24. PHYSICAL EXAMINATION: GENERAL: Patient alert and oriented times three, in no acute distress. HEENT: Normocephalic, atraumatic. PULMONARY: Bilaterally clear to auscultation. Distant breath sounds, no wheeze. CARDIAC: Regular rate and rhythm. Normal S1, S2. ABDOMEN: Soft, nontender, nondistended. EXTREMITIES: No edema bilateral lower extremities. ASSESSMENT AND PLAN: This is an 89-year-old male patient with underlying medical history of atrial fibrillation, congestive heart failure, chronic obstructive pulmonary disease (COPD), coronary arterial disease, dyslipidemia, hypertension, mitral valve replacement, pulmonary hypertension, type 2 diabetes, patient initially admitted for acute respiratory distress secondary to acute COPD exacerbation, found to have liver mass, status post biopsy showing poorly differentiated adenocarcinoma. Problems: 1. Acute respiratory distress secondary to COPD. Oxygen supplementation; the patient currently weaned off oxygen. Continue antibiotics, taper steroid, nebulizer treatment, Pulmicort inhaler. 2. Elevated troponin, demand ischemia. Cardiac enzymes appreciated. 3. Adenocarcinoma of the liver, status post biopsy. Dr. Bolanos from Hematology/Oncology consulted. The patient does not want any chemotherapy. Outpatient followup. The patient does not want aggressive treatment given his advanced age. 4. Type 2 diabetes. Insulin as per protocol. Consistent carbohydrate diet. Follow fingersticks. 5. Chronic diastolic heart failure. Patient also with no signs of fluid overload. Continue to follow. 6. History of bioprosthetic valve. Resume anticoagulation. 7. Paroxysmal atrial fibrillation. The patient currently is therapeutic on Coumadin. Lovenox discontinued. Followup INR. 8. Dyslipidemia. Continue statin. 9. History of hypertension. Continue home medication. 10. Acute on chronic renal failure. Followup BUN and creatinine. Lasix dose has been adjusted. 11. Patient continued on 20 mg of Lasix. 12. Supratherapeutic INR. Currently patient with normal INR. Continue Coumadin. 13. Deep vein thrombosis (DVT) prophylaxis. Patient on Coumadin with therapeutic INR. DISPOSITION: Likely discharge tomorrow.
[2016-09-22 14:00] VITALS: BP 137/61
[2016-09-22] MEDS ORDERED: WARFARIN SOD 2 MG TAB PO SCH (17:00)
[2016-09-22] MEDS: TAMSULOSIN 0.4 MG CAP PO SCH (18:06)
[2016-09-22] MEDS: CEFDINIR 300 MG CAP (OMNICEF) PO SCH (20:42)
[2016-09-22] MEDS: SIMVASTATIN 20 MG TAB PO SCH (20:43)
[2016-09-22 22:00] VITALS: BP 158/70
--- NOTE | 2016-09-23 03:22 | CR ---
DATE OF CONSULTATION: 09/20/2016 CONSULTATION REPORT FOR: Dr. Gavin Fung REASON FOR CONSULTATION: Adenocarcinoma with possible cholangiocarcinoma versus hepatocellular carcinoma on liver biopsy. HISTORY OF PRESENT ILLNESS: Mr. Guerra is an 89-year-old man who is presently admitted for shortness of breath. On workup, he was found to have a liver lesion. He was sent for a liver biopsy and this came back showing a poorly differentiated non-small cell carcinoma with features of adenocarcinoma. This is thought to be either be a hepatocellular carcinoma or a cholangiocarcinoma. Symptom de la fuente, Mr. Guerra has improved slightly in terms of his shortness of breath since admission. He reports that he was losing a little bit of weight prior to admission, but he also gained that weight back. He has a fair appetite. He has had no nausea, no vomiting prior to admission, but since admission has been slightly nauseous. He has regular bowel movements. He reports no rectal bleeding. He has no chronic cough, but he did have a cough shortly before getting admitted and this was a dry cough. He reports no new urinary problems. ALLERGIES: PENICILLIN, rash. MEDICATIONS: Prednisone, warfarin, budesonide, enoxaparin sodium, azithromycin, sodium chloride, irrigating solution, insulin, tamsulosin, ceftriaxone, amiodarone, multivitamins, albuterol. PHYSICAL EXAMINATION: GENERAL: He was seated comfortably in the chair and ambulatory with a walker. He had no dyspnea on speaking. He was afebrile. HEENT: He had pinkish conjunctiva and icteric sclerae. No oral mucosa lesions. No palpable cervical nodes. LUNGS: Fair air entry. No rales, rhonchi, or wheezes. HEART: S1, S2 regular. ABDOMEN: Soft, nontender, no guarding. EXTREMITIES: No calf swelling, no calf tenderness, trace bi-pedal edema. IMPRESSION AND PLAN: Mr. Guerra is an 89-year-old man with a solitary liver lesion with no other primary lesion on his CT of the chest, abdomen, and pelvis. 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 A primary malignancy of the liver, such as hepatocellular carcinoma or cholangiocarcinoma was deemed to be most likely the nature of this liver lesion according to Dr. Nicole of pathology. I discussed the above with Mr. Guerra. I discussed the nature and prognosis of hepatocellular carcinoma and cholangiocarcinoma. I also discussed that there is a remote possibility that this is a metastatic adenocarcinoma of an unknown primary. I discussed that treatment for cholangiocarcinoma and hepatocellular carcinoma would be surgery. This would be a major surgery for an 89-year-old man. I also discussed that the treatment for a metastatic adenocarcinoma of unknown primary would be chemotherapy, which would could be problematic for a man of his age as there would be a significant risk for bone marrow suppression and infection. On further discussion, Mr. Guerra was actually not keen to pursue treatment for his cancer. I, therefore, discussed a hospice referral to which he was open to. I also discussed a followup appointment with me at [facility] in 2- 3 weeks time. He has agreed to the above plan. Thank you for this referral. cc: MD Gavin Birmingham MD MTDD
[2016-09-23 06:00] VITALS: BP 150/85
[2016-09-23] MEDS: SLF 3 ML SYR IV SCH (06:00)
[2016-09-23 06:42] LABS: MEAN CORPUSCULAR HEMOGLOBIN 31.2 pg (27.0-33.0); MEAN CORPUSCULAR HGB CONC 33.3 g/dl (32.0-36.5); MEAN CORPUSCULAR VOLUME 93.8 fl (80.0-96.0); RED CELL DISTRIBUTION WIDTH 13.5 % (11.5-14.5); WHITE BLOOD COUNT 8.8 K/mm3 (4.0-10.0)
[2016-09-23 06:45] LABS: INR 2.36
[2016-09-23 06:56] LABS: ANION GAP 8 MEQ/L (8-16); BLOOD UREA NITROGEN 25 MG/DL (7-18); CARBON DIOXIDE LEVEL 29 MEQ/L (21-32); CHLORIDE LEVEL 104 MEQ/L (98-107); CREATININE FOR GFR 1.12 MG/DL (0.70-1.30); GLOMERULAR FILTRATION RATE > 60.0 (>35); GLUCOSE, FASTING 203 MG/DL (83-110); MAGNESIUM LEVEL 2.2 MG/DL (1.8-2.4); POTASSIUM SERUM 4.3 MEQ/L (3.5-5.1); SODIUM LEVEL 141 MEQ/L (136-145)
[2016-09-23] MEDS: MULTIVITAMINS/MINERALS THERAP 1 TAB PO SCH (08:18)
[2016-09-23] MEDS: HumaLOG INSULIN (NovoLOG) PER UNIT SC SCH ×2 (08:18→12:13)
[2016-09-23] MEDS: CEFDINIR 300 MG CAP (OMNICEF) PO SCH (08:18)
[2016-09-23] MEDS: SIMETHICONE 80 MG CHEW TAB PO SCH (08:19)
[2016-09-23] MEDS: AMIODARONE 200 MG TAB (PACERONE) PO SCH (08:19)
[2016-09-23] MEDS: FUROSEMIDE 20 MG TAB PO SCH (08:19)
[2016-09-23] MEDS: predniSONE 10 MG TAB PO SCH (08:19)
[2016-09-23] MEDS: BUDESONIDE 180MCG INHALER (PULMICORT FLEXHALER) INH SCH (08:23)
[2016-09-23] MEDS ORDERED: CEFD300CAP PO (09:08)
[2016-09-23] MEDS ORDERED: FURO20TA2 PO (09:08)
[2016-09-23] MEDS ORDERED: COUM2TAB10 PO (09:08)
--- NOTE | 2016-09-24 09:56 | DSES ---
DATE OF ADMISSION: 09/14/2016 DATE OF DISCHARGE: 09/23/2016 PRIMARY CARE PROVIDER: Dr. Marcus Rubi. ONCOLOGIST: Dr. Bolanos. FINAL DIAGNOSES: Acute respiratory distress secondary to chronic obstructive pulmonary disease (COPD) exacerbation. Elevated troponin secondary to demand ischemia. Adenocarcinoma of the liver. Type 2 diabetes. Chronic diastolic congestive heart failure. History of bioprosthetic valve. Supratherapeutic INR Paroxysmal atrial fibrillation. Dyslipidemia. History of hypertension. Acute on chronic renal insufficiency. HISTORY OF PRESENT ILLNESS: This is an 89-year-old male patient with underlying medial history of atrial fibrillation on anticoagulation, congestive heart failure (CHF) with diastolic dysfunction, chronic obstructive pulmonary disease (COPD), coronary arterial disease, dyslipidemia, hypertension, mitral valve replacement with bioprosthetic valve, pulmonary hypertension, diabetes type 2, presented with 24 hours of increasing fatigue, shortness of breath. Patient stated that his shortness of breath was worse with ambulation, was not worse with laying flat. Developed productive cough productive of white and clear sputum. Denies experiencing fever, chills, muscle aches or night sweats. Denies recent travel or sick contact. Patient denies abdominal pain, nausea or vomiting, change of bowel habits. Denies pain with urination or hematuria. Denies chest pain, palpitations. Denies vision change. Denies any worsening lower extremity edema. Does report 17 pound weight loss over the past 2-3 weeks. Further decrease in appetite. Patient was previously presented to the ED a couple of weeks ago, was treated with doxycycline and steroids for chronic obstructive pulmonary disease (COPD) exacerbation. HOSPITAL COURSE: Patient is admitted for acute respiratory distress secondary to chronic obstructive pulmonary disease (COPD) exacerbation, given Pulmicort inhaler, oxygen supplementation, IV antibiotics, IV steroids and steroids were tapered. Troponin was initially increased. Telemetry monitoring. Cardiac enzyme was trend. CT scan of the chest was done, incidental finding of a liver mass was discovered. Patient's Coumadin was on hold given patient was supratherapeutic. Vitamin K was given for possible liver biopsy status post liver biopsy with diagnosis of adenocarcinoma of the liver. Patient's respiratory status improved. Hematology/oncology Dr. Bolanos was consulted. Patient stated that given his age, he does not want any aggressive treatment. Does not want chemotherapy but was curious as to how long he will have left for him. Patient is receptive for Hospice care. Insulin was provided for diabetes. Bridged with Lovenox and Coumadin, currently patient has therapeutic INR on Coumadin. Patient's blood pressure medication was continued. Lasix was adjusted given poor oral intake. Kidney function was monitored. Physical therapy was done. Patient currently felt comfortable, tolerating oral, ready for discharge for further followup as outpatient. Home health referral made. Hospice referral also made for the patient. Vital signs: Temperature 96.8, pulse 77, respirations 18, blood pressure 150/85, pulse ox 98% on room air. Laboratory: WBC 8.8, hemoglobin and hematocrit 11.3/33.9, platelets 107. Chemistry: Sodium 141, potassium 4.3, chloride 104, bicarbonate 29, BUN 25, creatinine 1.12. DISCHARGE MEDICATION: - cefdinir 300 mg by mouth twice daily for 5 more days - Lasix 20 mg by mouth daily - Coumadin 2 mg by mouth daily, Followup INR in 5 days - amiodarone 200 mg by mouth daily - Pulmicort inhalation twice daily - calcium carbonate 1000 mg by mouth every 4 hours as needed - glipizide 5 mg by mouth before meals - Ellipta inhalation 62.5 mcg inhalation daily - multivitamin one tablet by mouth daily - Zocor 20 mg by mouth daily - Flomax 0.4 mg by mouth daily DISCHARGE INSTRUCTIONS: Patient is instructed to followup with primary care provider in 5-7 days for followup INR and followup with Oncologist, Dr. Bolanos, in 1-2 weeks. Hospice consult made. Public Health referral made. Return to the hospital if symptoms worsen.
== END 2016-09-23 13:45 | disposition home health service (06) | DRG 191 ==
LOC: M ED 20:13 → M ED INP 23:56 → M PCU 09-15 02:04 → M MS5PR 09-18 13:15
PROVIDERS: ADMIT Internal Medicine; ATTEND Internal Medicine
PROC: 0FB13ZX Excision of Right Lobe Liver, Percutaneous Approach, Diagnostic (ICD-10-PCS; principal; 2016-09-18)
DX: J44.1 Chronic obstructive pulmonary disease with (acute) exacerbation (principal); C22.0 Liver cell carcinoma; N17.9 Acute kidney failure, unspecified; I50.32 Chronic diastolic (congestive) heart failure; I48.92 Unspecified atrial flutter; R06.00 Dyspnea, unspecified; E78.5 Hyperlipidemia, unspecified; I10 Essential (primary) hypertension; E11.649 Type 2 diabetes mellitus with hypoglycemia without coma; I48.0 Paroxysmal atrial fibrillation; R63.4 Abnormal weight loss; Z79.899 Other long term (current) drug therapy; Z79.4 Long term (current) use of insulin; Z79.52 Long term (current) use of systemic steroids; Z88.0 Allergy status to penicillin; Z87.891 Personal history of nicotine dependence; Z79.01 Long term (current) use of anticoagulants; Z95.2 Presence of prosthetic heart valve

== ENCOUNTER 2016-09-26 16:09 | Emergency (ER) | payer MEDICARE, BC, OTHER ==
[~2016-09-26 16:09] MED LIST changes: +BUDE180INH INH; +CEFD300CAP PO; +COUM2TAB10 PO; +FLOM5CAP PO; +FURO20TA2 PO; +INCR1INH INH; +PRED20TA PO; +SIMV20TA2 PO
[2016-09-26 18:17] LABS: BASO % 0.6 % (0.0-1.0); EOS # 0.1 K/mm3 (0.0-0.50); EOS % 0.7 % (0.0-3.0); LARGE UNSTAINED CELL # 0.2 K/mm3 (0.0-0.4); LARGE UNSTAINED CELL % 1.9 % (0.0-4.0); LYMPH # 1.1 K/mm3 (1.5-4.5); MEAN CORPUSCULAR HEMOGLOBIN 31.2 pg (27.0-33.0); MEAN CORPUSCULAR HGB CONC 33.8 g/dl (32.0-36.5); MEAN CORPUSCULAR VOLUME 92.2 fl (80.0-96.0); MONO # 0.7 K/mm3 (0.0-0.8); MONO % 7.9 % (0.0-5.0); NEUTROPHILS # 7.1 K/mm3 (1.8-7.7); NEUTROPHILS % 78.9 % (36.0-66.0); PLATELET COUNT, AUTOMATED 124 k/mm3 (150-450); RED CELL DISTRIBUTION WIDTH 14.8 % (11.5-14.5)
[2016-09-26 18:30] LABS: CALCIUM LEVEL 8.5 MG/DL (8.8-10.2); CREATININE FOR GFR 1.43 MG/DL (0.70-1.30); GLOMERULAR FILTRATION RATE 49.6 (>35); POTASSIUM SERUM 3.7 MEQ/L (3.5-5.1)
[2016-09-26] MEDS ORDERED: FUROSEMIDE 40 MG/4 ML VIAL (J1940) As Ordered ONE (18:39)
[2016-09-26 19:42] LABS: INR 1.71
[2016-09-26 20:03] LABS: ALBUMIN 3.3 GM/DL (3.2-5.2); BILIRUBIN,DIRECT 0.2 MG/DL (0.0-0.2); BILIRUBIN,TOTAL 0.8 MG/DL (0.2-1.0); TOTAL PROTEIN 6.6 GM/DL (6.4-8.2)
--- NOTE | 2016-09-26 21:25 | EDDOCDS ---
Nurse's Notes [facility] Name: Wilman Guerra Age: 89 yrs Sex: Male : 1925 Arrival Date: 09/26/2016 Time: 16:09 Bed 9 Private MD: Marcus Rubi Diagnosis: Acute combined systolic (congestive) and diastolic (congestive) heart failure;Edema, unspecified-dependent edema Presentation: 09/26 16:23 Presenting complaint: Friend states: pitting edema bilat legs started today-- SOB worse ttb with exertion. Pt released from [facility] this past Friday (09/23) for COPD exacerbation and increased BS and new dx of liver CA. Pt states fatigue, no pain. Adult Sepsis Screening: The patient does not have new or worsening altered mentation. Patient's respiratory rate is less than 22. Systolic blood pressure is greater than 100. Patient has a qSOFA score of 0- Negative Sepsis Screen. Suicide/Homicide risk assessment- the patient denies having any suicidal and/or homicidal ideations and does not present with any other emotional, behavioral or mental health complaints. 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 Transition of care: patient was not received from another setting of care. 16:23 Acuity: YOVANNY Level 3 ttb 16:23 Method Of Arrival: Walkin/Carried/Asstd ttb Triage Assessment: 16:31 General: Appears in no apparent distress, well nourished, well groomed, Behavior is ttb appropriate for age, cooperative, pleasant. Pain: Denies pain. Neurological: Level of Consciousness is awake, alert. Cardiovascular: Chest pain is denied. Respiratory: Onset: The symptoms/episode began/occurred gradually, Airway is patent Respiratory effort is even, unlabored. GI: Denies nausea, vomiting, pain. Derm: Skin is normal, pt friend states LE edema. Injury Description: No known injury. Historical: - Allergies: PENICILLINS (Hives); - Home Meds: 1. furosemide 40 mg Oral tab 1 tab 2 times per day if weight is above 139#, pt to take med BID. Pt to take Tues/Sat off from med (Last dose: 09/26/2016 07:30) 2. amiodarone 200 mg Oral tab 1 tab once daily (Last dose: 09/26/2016 07:30) 3. tamsulosin 0.4 mg oral cp24 1 cap once daily (Last dose: 09/26/2016 07:30) 4. Coumadin 2.5mg every day except 5mg on T, Sa Oral once daily (Last dose: 09/25/2016) 5. glipizide 5 mg Oral tab 1 tab once daily (Last dose: 09/25/2016 17:30) 6. multivitamin Oral tab 1 tab daily (Last dose: 09/26/2016 07:30) 7. Pulmicort Unknown Inhl Unknown 2 times per day (Last dose: 09/26/2016 07:30) 8. Incruse Ellipta 62.5 mcg/actuation inhalation dsdv 1 puff once daily (Last dose: 09/25/2016 21:00) 9. simvastatin 20 mg Oral tab 1 tab nightly (Last dose: 09/25/2016 20:00) 10. antibiotic currently twice a day x5 days. Dose ends Friday (Last dose: 09/26/2016 07:30) - PMHx: Atrial Fib; CHF; COPD; coronary arteriosclerosis; Hypercholesterolemia; Hypertension; mitral valve disorder; liver CA dx 09/2016; - PSHx: Appendectomy; Bowel resection; Tonsillectomy; back surgery; Mitral Valve Replacement, Procine; - Social history: Smoking status: Patient states former smoker of tobacco. Patient/guardian denies using alcohol, street drugs, No barriers to communication noted, The patient speaks fluent Gabonese, Speaks appropriately for age. - Family history: No immediate family members are acutely ill. - : The pt / caregiver states he / she is on anticoagulants: coumadin. Home medication list is obtained from the patient. - Exposure Risk Screening:: None identified. - Code Status:: DNR : MOLST ON FILE . - Advance directive:: Yes. Screenin:41 Advance Directives: Currently, there is a health care proxy, Jo Ann Ewing [phone] ttb family friend. There is an active DNR order but there is no copy available at this time. 17:50 Screening information is obtained from the patient. Fall risk: No risks identified. mlb1 Assistance ADL's: requires no assistance with activities of daily living. Abuse/DV Screen: The patient / caregiver reports he/she is: not in a situation that causes fear, pain or injury. Nutritional screening: No deficits noted. home support is adequate. Assessment: 17:49 General: Appears in no apparent distress, comfortable, Behavior is anxious, mlb1 cooperative. Pain: Denies pain. Cardiovascular: Edema pitting to left ankle, left foot, right ankle and right foot. Respiratory: Airway is patent Respiratory effort is even, unlabored, Breath sounds are clear bilaterally. Reports shortness of breath on exertion. 18:44 General: Appears in no apparent distress, comfortable, Behavior is appropriate for age, mlb1 cooperative. Pain: Denies pain. 19:02 General: Verbal report given by Noe Yang RN. Assumed care of patient at this time.. kas2 20:05 General: Patient laying in bed with daughter at bedside. Denies pain or discomfort at [facility] this time. No apparent distress noted. Appears comfortable. Call vuong within reach. Will continue to monitor.. 21:22 General: Appears in no apparent distress, comfortable, Behavior is appropriate for age, nn1 cooperative. Pain: Denies pain. Neurological: Level of Consciousness is awake, alert, obeys commands. Respiratory: Airway is patent Respiratory effort is even, unlabored, Respiratory pattern is regular. Derm: Skin is pink, warm & dry. Vital Signs: 16:12 BP 134 / 66; Pulse 76; Resp 20 S; Temp 95.9(T); Pulse Ox 100% on R/A; Weight 62.6 kg gr2 (R); Height 5 ft. 10 in. (177.80 cm) (R); Pain 4/10; 21:22 BP 126 / 60; Pulse 80; Resp 18; Temp 98.6; Pulse Ox 94% on R/A; Pain 0/10; nn1 16:12 Body Mass Index 19.80 (62.60 kg, 177.80 cm) gr2 Vitals: 16:12 Log In Time: September 26, 2016 at 16:12. gr2 ED Course: 16:11 Patient visited by Keren Colbert. gr2 16:11 Marcus Rubi is Private Physician. gr2 16:11 Patient moved to Waiting gr2 16:13 Patient visited by Keren Colbert. gr2 16:13 Patient moved to Pre RCE gr2 16:26 Triage Initiated ttb 16:33 Patient moved to 9 ttb 16:42 The patient / caregiver is instructed regarding the plan of care and ED course. Patient jennifer has correct armband on for positive identification. Placed in gown. Bed in low position. Call light in reach. Side rails up X2. cafeteria monitor on. Pulse ox on. NIBP on. 16:42 Inserted saline lock: 20 gauge in left antecubital area and blood collected. The jennifer patient tolerated the procedure well. 16:43 Patient visited by Kofi Yang RN. mlb1 17:01 EKG done. (by ED staff). Reviewed by Marcus Rubi. rn1 17:51 Patient visited by Kofi Yang RN. mlb1 17:51 BLOOD CULTURES Sent. mlb1 17:51 -Blood Culture Sent. mlb1 17:51 B-Type Natiuretic Peptide Sent. mlb1 17:51 Basic Metabolic Profile Sent. mlb1 17:51 CBC with Diff Sent. mlb1 17:51 Troponin Sent. mlb1 18:17 [facility] ke 18:17 Patient visited by Schuyler Bernal FNP. ke 18:18 Patient visited by Schuyler Bernal FNP. ke 18:32 [facility] Payment Agreement was scanned into [employer] and attached to record. zo 18:45 Patient visited by Kofi Yang RN. mlb1 18:56 Jacquelin Gonzlaes RN is Primary Nurse. kas2 19:03 Patient visited by Jacquelin Gonzales RN. kas2 19:34 Patient visited by Schuyler Bernal FNP. ke 19:38 LIVER PROFILE Sent. kas2 20:05 Patient visited by Schuyler Bernal FNP. ke 20:38 Patient visited by Jacquelin Gonzales RN. kas2 20:43 Wilman Melgoza MD is Referral Physician. ke 21:23 No procedures done that require assistance. nn1 Administered Medications: 18:43 Drug: Furosemide 40 mg [furosemide 10 mg/mL injection solution (4 mL)] Route: IVP; mlb1 Site: left antecubital; Output: 18:44 Urine: 650.00ml (Voided); Total: 650.00ml. mlb1 Order Results: Lab Order: B-Type Natiuretic Peptide; SPEC'M 09/26/16 17:46 Test: BRAIN NATRIURETIC PEPTIDE; Value: 537; Range: <100; Abnormal: Above high normal; Units: PG/ML; Status: F Lab Order: Basic Metabolic Profile; SPEC'M 09/26/16 17:46 Test: GLUCOSE, FASTING; Value: 176; Range: 83-110; Abnormal: Above high normal; Units: MG/DL; Status: F Test: BLOOD UREA NITROGEN; Value: 26; Range: 7-18; Abnormal: Above high normal; Units: MG/DL; Status: F Test: CREATININE FOR GFR; Value: 1.43; Range: 0.70-1.30; Abnormal: Above high normal; Units: MG/DL; Status: F Test: GLOMERULAR FILTRATION RATE; Value: 49.6; Range: >35; Status: F Test: SODIUM LEVEL; Value: 139; Range: 136-145; Units: MEQ/L; Status: F Test: POTASSIUM SERUM; Value: 3.7; Range: 3.5-5.1; Units: MEQ/L; Status: F Test: CHLORIDE LEVEL; Value: 97; Range: 98-107; Abnormal: Below low normal; Units: MEQ/L; Status: F Test: CARBON DIOXIDE LEVEL; Value: 32; Range: 21-32; Units: MEQ/L; Status: F Test: ANION GAP; Value: 10; Range: 8-16; Units: MEQ/L; Status: F Test: CALCIUM LEVEL; Value: 8.5; Range: 8.8-10.2; Abnormal: Below low normal; Units: MG/DL; Status: F Test Note: ; Units are mL/min/1.73 m2 Chronic Kidney Disease Staging per NKF: Stage I & II GFR >=60 Normal to Mildly Decreased Stage III GFR 30-59 Moderately Decreased Stage IV GFR 15-29 Severely Decreased Stage V GFR <15 Very Little GFR Left ESRD GFR <15 on STANDARDS ENGINEER Test: AST/SGOT; Range: 15-37; Units: U/L; Status: I Test: ALT/SGPT; Range: 12-78; Units: U/L; Status: I Test: ALKALINE PHOSPHATASE; Range: 45-117; Units: U/L; Status: I Test: BILIRUBIN,TOTAL; Range: 0.2-1.0; Units: MG/DL; Status: I Test: BILIRUBIN,DIRECT; Range: 0.0-0.2; Units: MG/DL; Status: I Test: TOTAL PROTEIN; Range: 6.4-8.2; Units: GM/DL; Status: I Test: ALBUMIN; Range: 3.2-5.2; Units: GM/DL; Status: I Test: ALBUMIN/GLOBULIN RATIO; Range: 1.00-1.93; Status: I Lab Order: CBC with Diff; SPEC'M 09/26/16 17:46 Test: WHITE BLOOD COUNT; Value: 9.0; Range: 4.0-10.0; Units: K/mm3; Status: F Test: RED BLOOD COUNT; Value: 3.85; Range: 4.30-6.10; Abnormal: Below low normal; Units: M/mm3; Status: F Test: HEMOGLOBIN; Value: 12.0; Range: 14.0-18.0; Abnormal: Below low normal; Units: g/dl; Status: F Test: HEMATOCRIT; Value: 35.5; Range: 42.0-52.0; Abnormal: Below low normal; Units: %; Status: F Test: MEAN CORPUSCULAR VOLUME; Value: 92.2; Range: 80.0-96.0; Units: fl; Status: F Test: MEAN CORPUSCULAR HEMOGLOBIN; Value: 31.2; Range: 27.0-33.0; Units: pg; Status: F Test: MEAN CORPUSCULAR HGB CONC; Value: 33.8; Range: 32.0-36.5; Units: g/dl; Status: F Test: RED CELL DISTRIBUTION WIDTH; Value: 14.8; Range: 11.5-14.5; Abnormal: Above high normal; Units: %; Status: F Test: PLATELET COUNT, AUTOMATED; Value: 124; Range: 150-450; Abnormal: Below low normal; Units: k/mm3; Status: F Test: NEUTROPHILS %; Value: 78.9; Range: 36.0-66.0; Abnormal: Above high normal; Units: %; Status: F Test: LYMPH %; Value: 10.0; Range: 24.0-44.0; Abnormal: Below low normal; Units: %; Status: F Test: MONO %; Value: 7.9; Range: 0.0-5.0; Abnormal: Above high normal; Units: %; Status: F Test: EOS %; Value: 0.7; Range: 0.0-3.0; Units: %; Status: F Test: BASO %; Value: 0.6; Range: 0.0-1.0; Units: %; Status: F Test: LARGE UNSTAINED CELL %; Value: 1.9; Range: 0.0-4.0; Units: %; Status: F Test: NEUTROPHILS #; Value: 7.1; Range: 1.8-7.7; Units: K/mm3; Status: F Test: LYMPH #; Value: 1.1; Range: 1.5-4.5; Abnormal: Below low normal; Units: K/mm3; Status: F Test: MONO #; Value: 0.7; Range: 0.0-0.8; Units: K/mm3; Status: F Test: EOS #; Value: 0.1; Range: 0.0-0.50; Units: K/mm3; Status: F Test: BASO #; Value: 0.0; Range: 0.0-0.2; Units: K/mm3; Status: F Test: LARGE UNSTAINED CELL #; Value: 0.2; Range: 0.0-0.4; Units: K/mm3; Status: F Lab Order: Troponin; SPEC'M 09/26/16 17:46 Test: TROPONIN I; Value: 0.11; Range: < 0.10; Abnormal: Above high normal; Units: NG/ML; Status: F Test Note: ; Troponin I Reference Interval for [place] LOCI: 99th Percentile= 0.00-0.045 ng/ml Risk Stratification: <= 0.10 ng/ml Decreased Risk for Adverse Clinical Events. 0.10-1.50 ng/ml Increased Risk for Adverse Clinical Events. Evaluation of additional criterion and/or repeat testing in 2-6 hours is suggested to rule out myocardial damage. >= 1.50 ng/ml Indicative of Myocardial Injury. Lab Order: PT/INR; SPEC'M 09/26/16 17:47 Test: PROTHROMBIN TIME; Value: 20.2; Range: 12.3-14.5; Abnormal: Above high normal; Units: SECONDS; Status: F Test: INR; Value: 1.71; Status: F Test Note: ; THERAPUTIC HUMAN INR VALUES INDICATIONS NORMAL RANGES PROPHYLAXIS/TREATMENT OF: VENOUS THROMBOSIS 2.0-3.0 PULMONARY EMBOLISM 2.0-3.0 PREVENTION OF SYSTEMIC EMBOLISM FROM: TISSUE HEART VALVES 2.0-3.0 ACUTE MYOCARDIAL INFARCTION 2.0-3.0 VALVULAR HEART DISEASE 2.0-3.0 ATRIAL FIBRILLATION 2.0-3.0 MECHANICAL VALVES(HIGH RISK) 2.5-3.5 RECURRENT MYOCARDIAL INFARCTION 2.5-3.5 Lab Order: LIVER PROFILE; SPEC'M 09/26/16 17:46 Test: AST/SGOT; Value: 69; Range: 15-37; Abnormal: Above high normal; Units: U/L; Status: F Test: ALT/SGPT; Value: 100; Range: 12-78; Abnormal: Above high normal; Units: U/L; Status: F Test: ALKALINE PHOSPHATASE; Value: 126; Range: 45-117; Abnormal: Above high normal; Units: U/L; Status: F Test: BILIRUBIN,TOTAL; Value: 0.8; Range: 0.2-1.0; Units: MG/DL; Status: F Test: BILIRUBIN,DIRECT; Value: 0.2; Range: 0.0-0.2; Units: MG/DL; Status: F Test: TOTAL PROTEIN; Value: 6.6; Range: 6.4-8.2; Units: GM/DL; Status: F Test: ALBUMIN; Value: 3.3; Range: 3.2-5.2; Units: GM/DL; Status: F Test: ALBUMIN/GLOBULIN RATIO; Value: 1.00; Range: 1.00-1.93; Status: F Lab Order: CARDIAC INJURY PROFILE; SPEC'M 09/26/16 17:46 Test: CPK CREATINE PHOSPHOKINASE; Value: 228; Range: 39-308; Units: U/L; Status: F Test: CK-MB VALUE MASS; Value: 5.9; Range: 0.0-3.6; Abnormal: Above high normal; Units: NG/ML; Status: F Test: MB/CK RELATIVE INDEX; Value: 2.58; Range: < OR =4; Status: F Test Note: ; DIAGNOSIS CRITERIA MMB ng/ml Relative Index (RI) NON-AMI < or = 5 N/A [place] ZONE > 5 < or = 4 AMI > 5 > 4 Outcome: 20:43 Discharge ordered by Provider. 21:23 Discharge Assessment: Patient awake, alert and oriented x 3. No cognitive and/or nn1 functional deficits noted. Patient verbalized understanding of disposition instructions. 21:23 Discharge Assessment: patient administered narcotics - no. The following High Risk nn1 Discharge criteria are identified: None. Discharged to home ambulatory, with family. Condition: stable. No special radiology studies were completed. Property :Personal belongings accompany Pt. 21:24 Patient left the ED. nn1 Signatures: Schuyler Bernal, STEAM DISTRIBUTION SUPERVISOR STEAM DISTRIBUTION SUPERVISOR Kofi Garrett RN RN mlb1 Suzanne Valladares Teresa RN RN ttb Keren Colbert gr2 Tae Centeno rn1 Roula aWrdRN RN nn1 Jacquelin Gonzales RN RN kas2 Corrections: (The following items were deleted from the chart) 19:39 19:38 CARDIAC INJURY PROFILE+LAB sent. [facility] EDMS MTDD
--- NOTE | 2016-09-26 21:25 | EDDOCDS ---
Physician Documentation [facility] Name: Wilman Guerra Age: 89 yrs Sex: Male : 1925 Arrival Date: 09/26/2016 Time: 16:09 Bed 9 Private MD: Marcus Rubi Disposition: 09/26/16 20:43 Discharged to Home/Self Care. Impression: Acute combined systolic (congestive) and diastolic (congestive) heart failure, Edema, unspecified - dependent edema. - Condition is Stable. - Discharge Instructions: Heart Failure, Edema. - Medication Reconciliation, Local Pharmacy Hours form. - Follow up: Wilman Melgoza MD; When: 4 - 5 days; Reason: Recheck today's complaints, Continuance of care. - Problem is an acute exacerbation. - Symptoms have improved. - Notes: elevate legs Historical: - Allergies: PENICILLINS (Hives); - Home Meds: 1. furosemide 40 mg Oral tab 1 tab 2 times per day if weight is above 139#, pt to take med BID. Pt to take Tues/Sat off from med (Last dose: 09/26/2016 07:30) 2. amiodarone 200 mg Oral tab 1 tab once daily (Last dose: 09/26/2016 07:30) 3. tamsulosin 0.4 mg oral cp24 1 cap once daily (Last dose: 09/26/2016 07:30) 4. Coumadin 2.5mg every day except 5mg on T, Sa Oral once daily (Last dose: 09/25/2016) 5. glipizide 5 mg Oral tab 1 tab once daily (Last dose: 09/25/2016 17:30) 6. multivitamin Oral tab 1 tab daily (Last dose: 09/26/2016 07:30) 7. Pulmicort Unknown Inhl Unknown 2 times per day (Last dose: 09/26/2016 07:30) 8. Incruse Ellipta 62.5 mcg/actuation inhalation dsdv 1 puff once daily (Last dose: 09/25/2016 21:00) 9. simvastatin 20 mg Oral tab 1 tab nightly (Last dose: 09/25/2016 20:00) 10. antibiotic currently twice a day x5 days. Dose ends Friday (Last dose: 09/26/2016 07:30) - PMHx: Atrial Fib; CHF; COPD; coronary arteriosclerosis; Hypercholesterolemia; Hypertension; mitral valve disorder; liver CA dx 09/2016; - PSHx: Appendectomy; Bowel resection; Tonsillectomy; back surgery; Mitral Valve Replacement, Procine; - Social history: Smoking status: Patient states former smoker of tobacco. Patient/guardian denies using alcohol, street drugs, No barriers to communication noted, The patient speaks fluent French, Speaks appropriately for age. - Family history: No immediate family members are acutely ill. - : The pt / caregiver states he / she is on anticoagulants: coumadin. Home medication list is obtained from the patient. - Exposure Risk Screening:: None identified. - Code Status:: DNR : MOLST ON FILE . - Advance directive:: Yes. Vital Signs: 09/26 16:12 BP 134 / 66; Pulse 76; Resp 20 S; Temp 95.9(T); Pulse Ox 100% on R/A; Weight 62.6 kg / gr2 138.01 lbs (R); Height 5 ft. 10 in. (177.80 cm) (R); Pain 4/10; 21:22 BP 126 / 60; Pulse 80; Resp 18; Temp 98.6; Pulse Ox 94% on R/A; Pain 0/10; nn1 16:12 Body Mass Index 19.80 (62.60 kg, 177.80 cm) gr2 MDM: 16:41 ECG WITH READING ER PHYS+CARDIAG ordered. EDMS 16:56 -Blood Culture (Adults Only), peripheral from different site, or from device/port/PICC fg etc. if present ordered. 16:56 Tape Keller Operator/Pulse Ox/q 15 min VS ordered. fg 16:56 IV Saline Lock ordered. fg 16:56 Oxygen at 4L/Min NC or Home dosage ordered. fg 16:56 Rhythm Strip to chart ordered. fg 16:57 Chest, 1 View Ordered. EDMS 16:57 -Blood Culture Ordered. EDMS 16:57 B-Type Natiuretic Peptide Ordered. EDMS 16:57 Basic Metabolic Profile Ordered. EDMS 16:57 CBC with Diff Ordered. EDMS 16:57 Troponin Ordered. EDMS 17:09 -Blood Culture (Adults Only), peripheral from different site, or from device/port/PICC jrd etc. if present complete. 17:11 BLOOD CULTURES Ordered. EDMS 18:29 Furosemide 40 mg IVP once ordered. ke 18:30 Financial registration complete. zo 18:32 COUNT INCLUDES THE [facility] Payment Agreement was scanned into [employer] and attached to record. zo 19:25 PT/INR Ordered. EDMS 19:29 LIVER PROFILE Ordered. EDMS 19:59 B-Type Natiuretic Peptide Reviewed. ke 19:59 Basic Metabolic Profile Reviewed. ke 19:59 CBC with Diff Reviewed. ke 19:59 Troponin Reviewed. ke 19:59 PT/INR Reviewed. ke 20:17 Basic Metabolic Profile Reviewed. ke 20:17 Troponin Reviewed. ke 20:17 LIVER PROFILE Reviewed. ke Administered Medications: 18:43 Drug: Furosemide 40 mg [furosemide 10 mg/mL injection solution (4 mL)] Route: IVP; mlb1 Site: left antecubital; Signatures: Dispatcher [employer] EDSchuyler Medina, TOOL ROOM ATTENDANT TOOL ROOM ATTENDANT Suzanne Brown Teresa, RN RN ttb Wilman Dean, KALEB OIL PRODUCER Roula LundbergRN RN nn1 Loreto Kent MD MD fg Barney, Michael B RN mlb1 The chart was reviewed and I authenticate all verbal orders and agree with the evaluation and treatment provided.Corrections: (The following items were deleted from the chart) 19:29 19:25 LIVER PROFILE+LAB ordered. EDMS EDMS 19:39 19:29 CARDIAC INJURY PROFILE+LAB ordered. EDMS EDMS Attachments: 18:32 COUNT INCLUDES THE [facility] Payment Agreement zo MTDD
--- NOTE | 2016-09-26 23:24 | REP ---
Clinical: Shortness of breath . Comparison: 09/14/2016 . Findings: The mediastinum and cardiac silhouette are stable demonstrating sternotomy and CABG. The lung alas demonstrate chronic changes without acute consolidation, effusion, or pneumothorax. Skeletal structures are intact. Impression: Chronic stable changes. No acute cardiopulmonary process appreciated. Signed by Rex Bueno MD 09/26/2016 11:16 P
--- NOTE | 2016-09-28 08:21 | ECGEPIP ---
Stationary ECG Study [facility] - ED Test Date: 2016-09-26 Pat Name: JOSE HONG Department: Room: - Gender: M Assistant Clinical Director: rn : 1925 Requested By: JONO Almendarez Order Number: [id number] Reading MD: Denise Beach Measurements Intervals [place] Rate: 71 P: 79 [place]: 232 QRS: 57 QRSD: 96 T: 29 QT: 463 QTc: 504 Interpretive Statements SINUS RHYTHM WITH FIRST DEGREE AV BLOCK WITH OCCASIONAL SUPRAVENTRICULAR PREMATURE COMPLEXES PROLONGED QT INTERVAL NSTTW ABNORMALITY SIMILAR 09/15/16 Electronically Signed On 09-28-2016 8:21:18 EST by Denise Beach
--- NOTE | 2016-09-28 22:24 | EDDOCDS ---
Physician Documentation [facility] Name: Wilman Guerra Age: 89 yrs Sex: Male : 1925 Arrival Date: 09/26/2016 Time: 16:09 Bed 9 Private MD: Marcus Rubi Disposition: 09/26/16 20:43 Discharged to Home/Self Care. Impression: Acute combined systolic (congestive) and diastolic (congestive) heart failure, Edema, unspecified - dependent edema. - Condition is Stable. - Discharge Instructions: Heart Failure, Edema. - Medication Reconciliation, Local Pharmacy Hours form. - Follow up: Wilman Melgoza MD; When: 4 - 5 days; Reason: Recheck today's complaints, Continuance of care. - Problem is an acute exacerbation. - Symptoms have improved. - Notes: elevate legs Historical: - Allergies: PENICILLINS (Hives); - Home Meds: 1. furosemide 40 mg Oral tab 1 tab 2 times per day if weight is above 139#, pt to take med BID. Pt to take Tues/Sat off from med (Last dose: 09/26/2016 07:30) 2. amiodarone 200 mg Oral tab 1 tab once daily (Last dose: 09/26/2016 07:30) 3. tamsulosin 0.4 mg oral cp24 1 cap once daily (Last dose: 09/26/2016 07:30) 4. Coumadin 2.5mg every day except 5mg on T, Sa Oral once daily (Last dose: 09/25/2016) 5. glipizide 5 mg Oral tab 1 tab once daily (Last dose: 09/25/2016 17:30) 6. multivitamin Oral tab 1 tab daily (Last dose: 09/26/2016 07:30) 7. Pulmicort Unknown Inhl Unknown 2 times per day (Last dose: 09/26/2016 07:30) 8. Incruse Ellipta 62.5 mcg/actuation inhalation dsdv 1 puff once daily (Last dose: 09/25/2016 21:00) 9. simvastatin 20 mg Oral tab 1 tab nightly (Last dose: 09/25/2016 20:00) 10. antibiotic currently twice a day x5 days. Dose ends Friday (Last dose: 09/26/2016 07:30) - PMHx: Atrial Fib; CHF; COPD; coronary arteriosclerosis; Hypercholesterolemia; Hypertension; mitral valve disorder; liver CA dx 09/2016; - PSHx: Appendectomy; Bowel resection; Tonsillectomy; back surgery; Mitral Valve Replacement, Procine; - Social history: Smoking status: Patient states former smoker of tobacco. Patient/guardian denies using alcohol, street drugs, No barriers to communication noted, The patient speaks fluent Hebrew, Speaks appropriately for age. - Family history: No immediate family members are acutely ill. - : The pt / caregiver states he / she is on anticoagulants: coumadin. Home medication list is obtained from the patient. - Exposure Risk Screening:: None identified. - Code Status:: DNR : MOLST ON FILE . - Advance directive:: Yes. Vital Signs: 09/26 16:12 BP 134 / 66; Pulse 76; Resp 20 S; Temp 95.9(T); Pulse Ox 100% on R/A; Weight 62.6 kg / gr2 138.01 lbs (R); Height 5 ft. 10 in. (177.80 cm) (R); Pain 4/10; 21:22 BP 126 / 60; Pulse 80; Resp 18; Temp 98.6; Pulse Ox 94% on R/A; Pain 0/10; nn1 16:12 Body Mass Index 19.80 (62.60 kg, 177.80 cm) gr2 MDM: 16:41 ECG WITH READING ER PHYS+CARDIAG ordered. EDMS 16:56 -Blood Culture (Adults Only), peripheral from different site, or from device/port/PICC fg etc. if present ordered. 16:56 Meal Cook/Pulse Ox/q 15 min VS ordered. fg 16:56 IV Saline Lock ordered. fg 16:56 Oxygen at 4L/Min NC or Home dosage ordered. fg 16:56 Rhythm Strip to chart ordered. fg 16:57 Chest, 1 View Ordered. EDMS 16:57 -Blood Culture Ordered. EDMS 16:57 B-Type Natiuretic Peptide Ordered. EDMS 16:57 Basic Metabolic Profile Ordered. EDMS 16:57 CBC with Diff Ordered. EDMS 16:57 Troponin Ordered. EDMS 17:09 -Blood Culture (Adults Only), peripheral from different site, or from device/port/PICC jrd etc. if present complete. 17:11 BLOOD CULTURES Ordered. EDMS 18:29 Furosemide 40 mg IVP once ordered. ke 18:30 Financial registration complete. zo 18:32 [facility] [place] Payment Agreement was scanned into [employer] and attached to record. zo 19:25 PT/INR Ordered. EDMS 19:29 LIVER PROFILE Ordered. EDMS 19:59 B-Type Natiuretic Peptide Reviewed. ke 19:59 Basic Metabolic Profile Reviewed. ke 19:59 CBC with Diff Reviewed. ke 19:59 Troponin Reviewed. ke 19:59 PT/INR Reviewed. ke 20:17 Basic Metabolic Profile Reviewed. ke 20:17 Troponin Reviewed. ke 20:17 LIVER PROFILE Reviewed. ke 09/27 07:26 T-Sheet-- Draft Copy was scanned into [employer] and attached to record. gb 11:53 ECG/EKG was scanned into [employer] and attached to record. gb Administered Medications: 09/26 18:43 Drug: Furosemide 40 mg [furosemide 10 mg/mL injection solution (4 mL)] Route: IVP; mlb1 Site: left antecubital; Signatures: Dispatcher [employer] EDMS Ale Maurer, Reg Reg gb Schuyler Bernal, CONTRACT MANAGER CONTRACT MANAGER Suzanne Brown Teresa, RN RN ttb Wilman Dean, FABRIC NORMALIZER FABRIC NORMALIZER Roula Lundberg,RN RN nn1 Loreto Kent MD MD fg Barney, Michael B RN mlb1 The chart was reviewed and I authenticate all verbal orders and agree with the evaluation and treatment provided.Corrections: (The following items were deleted from the chart) 19:29 19:25 LIVER PROFILE+LAB ordered. EDMS EDMS 19:39 19:29 CARDIAC INJURY PROFILE+LAB ordered. EDMS EDMS Attachments: 18:32 [facility] Payment Agreement zo 09/27 07:26 T-Sheet-- Draft Copy gb 11:53 ECG/EKG gb Chart Complete MTDD
--- NOTE | 2016-09-28 22:24 | EDDOCDS ---
Physician Documentation [facility] Name: Wilman Guerra Age: 89 yrs Sex: Male : 1925 Arrival Date: 09/26/2016 Time: 16:09 Bed 9 Private MD: Marcus Rubi Disposition: 09/26/16 20:43 Discharged to Home/Self Care. Impression: Acute combined systolic (congestive) and diastolic (congestive) heart failure, Edema, unspecified - dependent edema. - Condition is Stable. - Discharge Instructions: Heart Failure, Edema. - Medication Reconciliation, Local Pharmacy Hours form. - Follow up: Wilman Melgoza MD; When: 4 - 5 days; Reason: Recheck today's complaints, Continuance of care. - Problem is an acute exacerbation. - Symptoms have improved. - Notes: elevate legs Historical: - Allergies: PENICILLINS (Hives); - Home Meds: 1. furosemide 40 mg Oral tab 1 tab 2 times per day if weight is above 139#, pt to take med BID. Pt to take Tues/Sat off from med (Last dose: 09/26/2016 07:30) 2. amiodarone 200 mg Oral tab 1 tab once daily (Last dose: 09/26/2016 07:30) 3. tamsulosin 0.4 mg oral cp24 1 cap once daily (Last dose: 09/26/2016 07:30) 4. Coumadin 2.5mg every day except 5mg on T, Sa Oral once daily (Last dose: 09/25/2016) 5. glipizide 5 mg Oral tab 1 tab once daily (Last dose: 09/25/2016 17:30) 6. multivitamin Oral tab 1 tab daily (Last dose: 09/26/2016 07:30) 7. Pulmicort Unknown Inhl Unknown 2 times per day (Last dose: 09/26/2016 07:30) 8. Incruse Ellipta 62.5 mcg/actuation inhalation dsdv 1 puff once daily (Last dose: 09/25/2016 21:00) 9. simvastatin 20 mg Oral tab 1 tab nightly (Last dose: 09/25/2016 20:00) 10. antibiotic currently twice a day x5 days. Dose ends Friday (Last dose: 09/26/2016 07:30) - PMHx: Atrial Fib; CHF; COPD; coronary arteriosclerosis; Hypercholesterolemia; Hypertension; mitral valve disorder; liver CA dx 09/2016; - PSHx: Appendectomy; Bowel resection; Tonsillectomy; back surgery; Mitral Valve Replacement, Procine; - Social history: Smoking status: Patient states former smoker of tobacco. Patient/guardian denies using alcohol, street drugs, No barriers to communication noted, The patient speaks fluent Upper Sorbian, Speaks appropriately for age. - Family history: No immediate family members are acutely ill. - : The pt / caregiver states he / she is on anticoagulants: coumadin. Home medication list is obtained from the patient. - Exposure Risk Screening:: None identified. - Code Status:: DNR : MOLST ON FILE . - Advance directive:: Yes. Vital Signs: 09/26 16:12 BP 134 / 66; Pulse 76; Resp 20 S; Temp 95.9(T); Pulse Ox 100% on R/A; Weight 62.6 kg / gr2 138.01 lbs (R); Height 5 ft. 10 in. (177.80 cm) (R); Pain 4/10; 21:22 BP 126 / 60; Pulse 80; Resp 18; Temp 98.6; Pulse Ox 94% on R/A; Pain 0/10; nn1 16:12 Body Mass Index 19.80 (62.60 kg, 177.80 cm) gr2 MDM: 16:41 ECG WITH READING ER PHYS+CARDIAG ordered. EDMS 16:56 -Blood Culture (Adults Only), peripheral from different site, or from device/port/PICC fg etc. if present ordered. 16:56 Bilingual Legal Assistant/Pulse Ox/q 15 min VS ordered. fg 16:56 IV Saline Lock ordered. fg 16:56 Oxygen at 4L/Min NC or Home dosage ordered. fg 16:56 Rhythm Strip to chart ordered. fg 16:57 Chest, 1 View Ordered. EDMS 16:57 -Blood Culture Ordered. EDMS 16:57 B-Type Natiuretic Peptide Ordered. EDMS 16:57 Basic Metabolic Profile Ordered. EDMS 16:57 CBC with Diff Ordered. EDMS 16:57 Troponin Ordered. EDMS 17:09 -Blood Culture (Adults Only), peripheral from different site, or from device/port/PICC jrd etc. if present complete. 17:11 BLOOD CULTURES Ordered. EDMS 18:29 Furosemide 40 mg IVP once ordered. ke 18:30 Financial registration complete. zo 18:32 [facility] [place] Payment Agreement was scanned into [employer] and attached to record. zo 19:25 PT/INR Ordered. EDMS 19:29 LIVER PROFILE Ordered. EDMS 19:59 B-Type Natiuretic Peptide Reviewed. ke 19:59 Basic Metabolic Profile Reviewed. ke 19:59 CBC with Diff Reviewed. ke 19:59 Troponin Reviewed. ke 19:59 PT/INR Reviewed. ke 20:17 Basic Metabolic Profile Reviewed. ke 20:17 Troponin Reviewed. ke 20:17 LIVER PROFILE Reviewed. ke 09/27 07:26 T-Sheet-- Draft Copy was scanned into [employer] and attached to record. gb 11:53 ECG/EKG was scanned into [employer], [employer] and attached to record. gb Administered Medications: 09/26 18:43 Drug: Furosemide 40 mg [furosemide 10 mg/mL injection solution (4 mL)] Route: IVP; mlb1 Site: left antecubital; Signatures: Dispatcher [employer] EDMS Ale Maurer, Reg Reg gb Schuyler Bernal, RESTORATIVE ART EMBALMER RESTORATIVE ART EMBALMER Suzanne Brown Teresa, RN RN ttb Wilman Dean, SUPERVISOR COFFEE SUPERVISOR COFFEE Roula Lundberg,RN RN nn1 Loreto Kent MD MD fg Barney, Michael B RN mlb1 The chart was reviewed and I authenticate all verbal orders and agree with the evaluation and treatment provided.Corrections: (The following items were deleted from the chart) 19:29 19:25 LIVER PROFILE+LAB ordered. EDMS EDMS 19:39 19:29 CARDIAC INJURY PROFILE+LAB ordered. EDMS EDMS Attachments: 18:32 [facility] Payment Agreement zo 09/27 07:26 T-Sheet-- Draft Copy gb 11:53 ECG/EKG gb Chart Complete MTDD
--- NOTE | 2016-09-28 22:25 | EDDOCDS ---
Nurse's Notes [facility] Name: Wilman Guerra Age: 89 yrs Sex: Male : 1925 Arrival Date: 09/26/2016 Time: 16:09 Bed 9 Private MD: Marcus Rubi Diagnosis: Acute combined systolic (congestive) and diastolic (congestive) heart failure;Edema, unspecified-dependent edema Presentation: 09/26 16:23 Presenting complaint: Friend states: pitting edema bilat legs started today-- SOB worse ttb with exertion. Pt released from [facility] this past Friday (09/23) for COPD exacerbation and increased BS and new dx of liver CA. Pt states fatigue, no pain. Adult Sepsis Screening: The patient does not have new or worsening altered mentation. Patient's respiratory rate is less than 22. Systolic blood pressure is greater than 100. Patient has a qSOFA score of 0- Negative Sepsis Screen. Suicide/Homicide risk assessment- the patient denies having any suicidal and/or homicidal ideations and does not present with any other emotional, behavioral or mental health complaints. Status: Patient is not a manager client service or dependent. Transition of care: patient was not received from another setting of care. 16:23 Acuity: YOVANNY Level 3 ttb 16:23 Method Of Arrival: Walkin/Carried/Asstd ttb Triage Assessment: 16:31 General: Appears in no apparent distress, well nourished, well groomed, Behavior is ttb appropriate for age, cooperative, pleasant. Pain: Denies pain. Neurological: Level of Consciousness is awake, alert. Cardiovascular: Chest pain is denied. Respiratory: Onset: The symptoms/episode began/occurred gradually, Airway is patent Respiratory effort is even, unlabored. GI: Denies nausea, vomiting, pain. Derm: Skin is normal, pt friend states LE edema. Injury Description: No known injury. Historical: - Allergies: PENICILLINS (Hives); - Home Meds: 1. furosemide 40 mg Oral tab 1 tab 2 times per day if weight is above 139#, pt to take med BID. Pt to take Tues/Sat off from med (Last dose: 09/26/2016 07:30) 2. amiodarone 200 mg Oral tab 1 tab once daily (Last dose: 09/26/2016 07:30) 3. tamsulosin 0.4 mg oral cp24 1 cap once daily (Last dose: 09/26/2016 07:30) 4. Coumadin 2.5mg every day except 5mg on T, Sa Oral once daily (Last dose: 09/25/2016) 5. glipizide 5 mg Oral tab 1 tab once daily (Last dose: 09/25/2016 17:30) 6. multivitamin Oral tab 1 tab daily (Last dose: 09/26/2016 07:30) 7. Pulmicort Unknown Inhl Unknown 2 times per day (Last dose: 09/26/2016 07:30) 8. Incruse Ellipta 62.5 mcg/actuation inhalation dsdv 1 puff once daily (Last dose: 09/25/2016 21:00) 9. simvastatin 20 mg Oral tab 1 tab nightly (Last dose: 09/25/2016 20:00) 10. antibiotic currently twice a day x5 days. Dose ends Friday (Last dose: 09/26/2016 07:30) - PMHx: Atrial Fib; CHF; COPD; coronary arteriosclerosis; Hypercholesterolemia; Hypertension; mitral valve disorder; liver CA dx 09/2016; - PSHx: Appendectomy; Bowel resection; Tonsillectomy; back surgery; Mitral Valve Replacement, Procine; - Social history: Smoking status: Patient states former smoker of tobacco. Patient/guardian denies using alcohol, street drugs, No barriers to communication noted, The patient speaks fluent [place], Speaks appropriately for age. - Family history: No immediate family members are acutely ill. - : The pt / caregiver states he / she is on anticoagulants: coumadin. Home medication list is obtained from the patient. - Exposure Risk Screening:: None identified. - Code Status:: DNR : MOLST ON FILE . - Advance directive:: Yes. Screenin:41 Advance Directives: Currently, there is a health care proxy, Jo Ann Ewing [phone] ttb family friend. There is an active DNR order but there is no copy available at this time. 17:50 Screening information is obtained from the patient. Fall risk: No risks identified. mlb1 Assistance ADL's: requires no assistance with activities of daily living. Abuse/DV Screen: The patient / caregiver reports he/she is: not in a situation that causes fear, pain or injury. Nutritional screening: No deficits noted. home support is adequate. Assessment: 17:49 General: Appears in no apparent distress, comfortable, Behavior is anxious, mlb1 cooperative. Pain: Denies pain. Cardiovascular: Edema pitting to left ankle, left foot, right ankle and right foot. Respiratory: Airway is patent Respiratory effort is even, unlabored, Breath sounds are clear bilaterally. Reports shortness of breath on exertion. 18:44 General: Appears in no apparent distress, comfortable, Behavior is appropriate for age, mlb1 cooperative. Pain: Denies pain. 19:02 General: Verbal report given by Noe Yang RN. Assumed care of patient at this time.. kas2 20:05 General: Patient laying in bed with daughter at bedside. Denies pain or discomfort at [facility] this time. No apparent distress noted. Appears comfortable. Call vuong within reach. Will continue to monitor.. 21:22 General: Appears in no apparent distress, comfortable, Behavior is appropriate for age, nn1 cooperative. Pain: Denies pain. Neurological: Level of Consciousness is awake, alert, obeys commands. Respiratory: Airway is patent Respiratory effort is even, unlabored, Respiratory pattern is regular. Derm: Skin is pink, warm & dry. Vital Signs: 16:12 BP 134 / 66; Pulse 76; Resp 20 S; Temp 95.9(T); Pulse Ox 100% on R/A; Weight 62.6 kg gr2 (R); Height 5 ft. 10 in. (177.80 cm) (R); Pain 4/10; 21:22 BP 126 / 60; Pulse 80; Resp 18; Temp 98.6; Pulse Ox 94% on R/A; Pain 0/10; nn1 16:12 Body Mass Index 19.80 (62.60 kg, 177.80 cm) gr2 Vitals: 16:12 Log In Time: September 26, 2016 at 16:12. gr2 ED Course: 16:11 Patient visited by Keren Colbert. gr2 16:11 Marcus Rubi is Private Physician. gr2 16:11 Patient moved to Waiting gr2 16:13 Patient visited by Keren Colbert. gr2 16:13 Patient moved to Pre RCE gr2 16:26 Triage Initiated ttb 16:33 Patient moved to 9 ttb 16:42 The patient / caregiver is instructed regarding the plan of care and ED course. Patient jennifer has correct armband on for positive identification. Placed in gown. Bed in low position. Call light in reach. Side rails up X2. monitoring engineer on. Pulse ox on. NIBP on. 16:42 Inserted saline lock: 20 gauge in left antecubital area and blood collected. The jennifer patient tolerated the procedure well. 16:43 Patient visited by Kofi Yang, BALDEV. mlb1 17:01 EKG done. (by ED staff). Reviewed by Marcus Rubi. rn1 17:51 Patient visited by Kofi Yang, BALDEV. mlb1 17:51 BLOOD CULTURES Sent. mlb1 17:51 -Blood Culture Sent. mlb1 17:51 B-Type Natiuretic Peptide Sent. mlb1 17:51 Basic Metabolic Profile Sent. mlb1 17:51 CBC with Diff Sent. mlb1 17:51 Troponin Sent. mlb1 18:17 [facility]. ke 18:17 Patient visited by Schuyler Bernal FNP. ke 18:18 Patient visited by Schuyler Bernal FNP. ke 18:32 [facility] Payment Agreement was scanned into [employer] and attached to record. zo 18:45 Patient visited by Kofi Yang RN. mlb1 18:56 Jacquelin Gonzales RN is Primary Nurse. kas2 19:03 Patient visited by Jacquelin Gonzales RN. kas2 19:34 Patient visited by Schuyler Bernal FNP. ke 19:38 LIVER PROFILE Sent. kas2 20:05 Patient visited by Schuyler Bernal FNP. ke 20:38 Patient visited by Jacquelin Gonzales RN. kas2 20:43 Wilman Melgoza MD is Referral Physician. ke 21:23 No procedures done that require assistance. nn1 23:49 Chest, 1 View Returned. EDMS 09/27 07:26 T-Sheet-- Draft Copy was scanned into [employer] and attached to record. gb 11:53 ECG/EKG was scanned into [employer] and attached to record. gb 09/28 08:38 EKG-ADULT Returned. EDMS Administered Medications: 09/26 18:43 Drug: Furosemide 40 mg [furosemide 10 mg/mL injection solution (4 mL)] Route: IVP; mlb1 Site: left antecubital; Output: 18:44 Urine: 650.00ml (Voided); Total: 650.00ml. mlb1 Order Results: Lab Order: -Blood Culture; SPEC'M 09/26/16 17:46 Test: BLOOD CULTURE; Value: No growth after 24 hours . All specimens observed; Status: F Test: BLOOD CULTURE; Value: for 5 days. Results final at that time.; Status: F Test: BLOOD CULTURE; Value: No Growth after 48 hours. All Specimens observed; Status: F Test: BLOOD CULTURE; Value: for 7 days. Results final at that time.; Status: F Lab Order: B-Type Natiuretic Peptide; SPEC'M 09/26/16 17:46 Test: BRAIN NATRIURETIC PEPTIDE; Value: 537; Range: <100; Abnormal: Above high normal; Units: PG/ML; Status: F Lab Order: Basic Metabolic Profile; SPEC'M 09/26/16 17:46 Test: GLUCOSE, FASTING; Value: 176; Range: 83-110; Abnormal: Above high normal; Units: MG/DL; Status: F Test: BLOOD UREA NITROGEN; Value: 26; Range: 7-18; Abnormal: Above high normal; Units: MG/DL; Status: F Test: CREATININE FOR GFR; Value: 1.43; Range: 0.70-1.30; Abnormal: Above high normal; Units: MG/DL; Status: F Test: GLOMERULAR FILTRATION RATE; Value: 49.6; Range: >35; Status: F Test: SODIUM LEVEL; Value: 139; Range: 136-145; Units: MEQ/L; Status: F Test: POTASSIUM SERUM; Value: 3.7; Range: 3.5-5.1; Units: MEQ/L; Status: F Test: CHLORIDE LEVEL; Value: 97; Range: 98-107; Abnormal: Below low normal; Units: MEQ/L; Status: F Test: CARBON DIOXIDE LEVEL; Value: 32; Range: 21-32; Units: MEQ/L; Status: F Test: ANION GAP; Value: 10; Range: 8-16; Units: MEQ/L; Status: F Test: CALCIUM LEVEL; Value: 8.5; Range: 8.8-10.2; Abnormal: Below low normal; Units: MG/DL; Status: F Test Note: ; Units are mL/min/1.73 m2 Chronic Kidney Disease Staging per NKF: Stage I & II GFR >=60 Normal to Mildly Decreased Stage III GFR 30-59 Moderately Decreased Stage IV GFR 15-29 Severely Decreased Stage V GFR <15 Very Little GFR Left ESRD GFR <15 on BROWNFIELD PROGRAM COORDINATOR Test: AST/SGOT; Range: 15-37; Units: U/L; Status: I Test: ALT/SGPT; Range: 12-78; Units: U/L; Status: I Test: ALKALINE PHOSPHATASE; Range: 45-117; Units: U/L; Status: I Test: BILIRUBIN,TOTAL; Range: 0.2-1.0; Units: MG/DL; Status: I Test: BILIRUBIN,DIRECT; Range: 0.0-0.2; Units: MG/DL; Status: I Test: TOTAL PROTEIN; Range: 6.4-8.2; Units: GM/DL; Status: I Test: ALBUMIN; Range: 3.2-5.2; Units: GM/DL; Status: I Test: ALBUMIN/GLOBULIN RATIO; Range: 1.00-1.93; Status: I Lab Order: CBC with Diff; SPEC'M 09/26/16 17:46 Test: WHITE BLOOD COUNT; Value: 9.0; Range: 4.0-10.0; Units: K/mm3; Status: F Test: RED BLOOD COUNT; Value: 3.85; Range: 4.30-6.10; Abnormal: Below low normal; Units: M/mm3; Status: F Test: HEMOGLOBIN; Value: 12.0; Range: 14.0-18.0; Abnormal: Below low normal; Units: g/dl; Status: F Test: HEMATOCRIT; Value: 35.5; Range: 42.0-52.0; Abnormal: Below low normal; Units: %; Status: F Test: MEAN CORPUSCULAR VOLUME; Value: 92.2; Range: 80.0-96.0; Units: fl; Status: F Test: MEAN CORPUSCULAR HEMOGLOBIN; Value: 31.2; Range: 27.0-33.0; Units: pg; Status: F Test: MEAN CORPUSCULAR HGB CONC; Value: 33.8; Range: 32.0-36.5; Units: g/dl; Status: F Test: RED CELL DISTRIBUTION WIDTH; Value: 14.8; Range: 11.5-14.5; Abnormal: Above high normal; Units: %; Status: F Test: PLATELET COUNT, AUTOMATED; Value: 124; Range: 150-450; Abnormal: Below low normal; Units: k/mm3; Status: F Test: NEUTROPHILS %; Value: 78.9; Range: 36.0-66.0; Abnormal: Above high normal; Units: %; Status: F Test: LYMPH %; Value: 10.0; Range: 24.0-44.0; Abnormal: Below low normal; Units: %; Status: F Test: MONO %; Value: 7.9; Range: 0.0-5.0; Abnormal: Above high normal; Units: %; Status: F Test: EOS %; Value: 0.7; Range: 0.0-3.0; Units: %; Status: F Test: BASO %; Value: 0.6; Range: 0.0-1.0; Units: %; Status: F Test: LARGE UNSTAINED CELL %; Value: 1.9; Range: 0.0-4.0; Units: %; Status: F Test: NEUTROPHILS #; Value: 7.1; Range: 1.8-7.7; Units: K/mm3; Status: F Test: LYMPH #; Value: 1.1; Range: 1.5-4.5; Abnormal: Below low normal; Units: K/mm3; Status: F Test: MONO #; Value: 0.7; Range: 0.0-0.8; Units: K/mm3; Status: F Test: EOS #; Value: 0.1; Range: 0.0-0.50; Units: K/mm3; Status: F Test: BASO #; Value: 0.0; Range: 0.0-0.2; Units: K/mm3; Status: F Test: LARGE UNSTAINED CELL #; Value: 0.2; Range: 0.0-0.4; Units: K/mm3; Status: F Lab Order: Troponin; SPEC'M 09/26/16 17:46 Test: TROPONIN I; Value: 0.11; Range: < 0.10; Abnormal: Above high normal; Units: NG/ML; Status: F Test Note: ; Troponin I Reference Interval for [employer]ens [employer] LOCI: 99th Percentile= 0.00-0.045 ng/ml Risk Stratification: <= 0.10 ng/ml Decreased Risk for Adverse Clinical Events. 0.10-1.50 ng/ml Increased Risk for Adverse Clinical Events. Evaluation of additional criterion and/or repeat testing in 2-6 hours is suggested to rule out myocardial damage. >= 1.50 ng/ml Indicative of Myocardial Injury. Lab Order: BLOOD CULTURES; SPEC'M 09/26/16 17:47 Test: BLOOD CULTURE; Value: No growth after 24 hours . All specimens observed; Status: F Test: BLOOD CULTURE; Value: for 5 days. Results final at that time.; Status: F Test: BLOOD CULTURE; Value: No Growth after 48 hours. All Specimens observed; Status: F Test: BLOOD CULTURE; Value: for 7 days. Results final at that time.; Status: F Lab Order: PT/INR; SPEC'M 09/26/16 17:47 Test: PROTHROMBIN TIME; Value: 20.2; Range: 12.3-14.5; Abnormal: Above high normal; Units: SECONDS; Status: F Test: INR; Value: 1.71; Status: F Test Note: ; THERAPUTIC HUMAN INR VALUES INDICATIONS NORMAL RANGES PROPHYLAXIS/TREATMENT OF: VENOUS THROMBOSIS 2.0-3.0 PULMONARY EMBOLISM 2.0-3.0 PREVENTION OF SYSTEMIC EMBOLISM FROM: TISSUE HEART VALVES 2.0-3.0 ACUTE MYOCARDIAL INFARCTION 2.0-3.0 VALVULAR HEART DISEASE 2.0-3.0 ATRIAL FIBRILLATION 2.0-3.0 MECHANICAL VALVES(HIGH RISK) 2.5-3.5 RECURRENT MYOCARDIAL INFARCTION 2.5-3.5 Lab Order: LIVER PROFILE; SPEC'M 09/26/16 17:46 Test: AST/SGOT; Value: 69; Range: 15-37; Abnormal: Above high normal; Units: U/L; Status: F Test: ALT/SGPT; Value: 100; Range: 12-78; Abnormal: Above high normal; Units: U/L; Status: F Test: ALKALINE PHOSPHATASE; Value: 126; Range: 45-117; Abnormal: Above high normal; Units: U/L; Status: F Test: BILIRUBIN,TOTAL; Value: 0.8; Range: 0.2-1.0; Units: MG/DL; Status: F Test: BILIRUBIN,DIRECT; Value: 0.2; Range: 0.0-0.2; Units: MG/DL; Status: F Test: TOTAL PROTEIN; Value: 6.6; Range: 6.4-8.2; Units: GM/DL; Status: F Test: ALBUMIN; Value: 3.3; Range: 3.2-5.2; Units: GM/DL; Status: F Test: ALBUMIN/GLOBULIN RATIO; Value: 1.00; Range: 1.00-1.93; Status: F Lab Order: CARDIAC INJURY PROFILE; SPEC'M 09/26/16 17:46 Test: CPK CREATINE PHOSPHOKINASE; Value: 228; Range: 39-308; Units: U/L; Status: F Test: CK-MB VALUE MASS; Value: 5.9; Range: 0.0-3.6; Abnormal: Above high normal; Units: NG/ML; Status: F Test: MB/CK RELATIVE INDEX; Value: 2.58; Range: < OR =4; Status: F Test Note: ; DIAGNOSIS CRITERIA MMB ng/ml Relative Index (RI) NON-AMI < or = 5 N/A [place] > 5 < or = 4 AMI > 5 > 4 Radiology Order: EKG-ADULT Test: EKG-ADULT REASON FOR EXAMINATION: Shortness of Breath; Stationary ECG Study; [facility] - ED; ; Test Date: 2016-09-26; Pat Name: WILMAN GUERRA Department:; Room: -; Gender: M 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; : 1925 Requested By: JONO Almendarez; Order Number: [id number] Reading MD: Denise Beach; Measurements; Intervals [place]; Rate: 71 P: 79; WV: 232 QRS: 57; QRSD: 96 T: 29; QT: 463; QTc: 504; Interpretive Statements; SINUS RHYTHM WITH FIRST DEGREE AV BLOCK WITH OCCASIONAL SUPRAVENTRICULAR; PREMATURE COMPLEXES; PROLONGED QT INTERVAL; NSTTW ABNORMALITY; SIMILAR 09/15/16; Electronically Signed On 09-28-2016 8:21:18 EST by Denise Beach; Radiology Order: Chest, 1 View Test: Chest, 1 View REASON FOR EXAMINATION: Shortness of Breath; Clinical: Shortness of breath .; ; Comparison: 09/14/2016 .; ; Findings:; The mediastinum and cardiac silhouette are stable demonstrating sternotomy and; CABG. The lung alas demonstrate chronic changes without acute consolidation,; effusion, or pneumothorax. Skeletal structures are intact.; ; Impression:; Chronic stable changes. No acute cardiopulmonary process appreciated.; ; ; Signed by; Rex Bueno MD 09/26/2016 11:16 P; Outcome: 20:43 Discharge ordered by Provider. fermin 21:23 Discharge Assessment: Patient awake, alert and oriented x 3. No cognitive and/or nn1 functional deficits noted. Patient verbalized understanding of disposition instructions. 21:23 Discharge Assessment: patient administered narcotics - no. The following High Risk nn1 Discharge criteria are identified: None. Discharged to home ambulatory, with family. Condition: stable. No special radiology studies were completed. Property :Personal belongings accompany Pt. 21:24 Patient left the ED. nn1 Signatures: Dispatcher [employer] EDMS Ale Maurer, Vijay Reg gb Schuyler Bernal, CUSTOMER EXPERIENCE STRATEGIST CUSTOMER EXPERIENCE STRATEGIST Kofi Garrett RN RN mlb1 Suzanne Valladares Teresa RN RN ttb Keren Colbert gr2 Tae Centeno rn1 Roula WardRN RN nn1 Jacquelin Gonzales,RN RN kas2 Corrections: (The following items were deleted from the chart) 19:39 19:38 CARDIAC INJURY PROFILE+LAB sent. [facility] EDIA Chart Complete MTDD
== END 2016-09-26 21:24 | disposition home or self-care (01) ==
LOC: M ED 16:09
DX: I50.9 Heart failure, unspecified (principal); I48.91 Unspecified atrial fibrillation; I25.10 Atherosclerotic heart disease of native coronary artery without angina pectoris; I10 Essential (primary) hypertension; I34.0 Nonrheumatic mitral (valve) insufficiency; J44.9 Chronic obstructive pulmonary disease, unspecified; E78.00 Pure hypercholesterolemia, unspecified; C22.9 Malignant neoplasm of liver, not specified as primary or secondary; Z95.3 Presence of xenogenic heart valve; Z90.49 Acquired absence of other specified parts of digestive tract; Z90.89 Acquired absence of other organs; Z87.891 Personal history of nicotine dependence; Z79.01 Long term (current) use of anticoagulants; Z79.899 Other long term (current) drug therapy; Z88.0 Allergy status to penicillin
CPT/HCPCS: 36415; 71010; 80048; 80076; 82550; 82553; 83880; 84484; 85025; 85610; 87040; 93005; 93041; 96374; 99284; J1940

== ENCOUNTER → 2016-09-30 | Outpatient (REF) | payer MEDICARE, OTHER ==
[2016-09-30 13:50] LABS: CALCIUM LEVEL 9.1 MG/DL (8.8-10.2); CREATININE FOR GFR 1.59 MG/DL (0.70-1.30); GLOMERULAR FILTRATION RATE 43.9 (>35); MAGNESIUM LEVEL 2.5 MG/DL (1.8-2.4); POTASSIUM SERUM 3.9 MEQ/L (3.5-5.1)
== END ==
LOC: M SFHCPLAZ 10:21
PROVIDERS: ATTEND Internal Medicine
DX: I50.30 Unspecified diastolic (congestive) heart failure (principal)

== ENCOUNTER → 2016-12-10 | Outpatient (REF) | payer MEDICARE, OTHER ==
[2016-12-10 10:45] LABS: MEAN CORPUSCULAR HEMOGLOBIN 32.3 pg (27.0-33.0); MEAN CORPUSCULAR HGB CONC 33.4 g/dl (32.0-36.5); MEAN CORPUSCULAR VOLUME 96.6 fl (80.0-96.0); RED CELL DISTRIBUTION WIDTH 13.2 % (11.5-14.5); WHITE BLOOD COUNT 6.8 K/mm3 (4.0-10.0)
[2016-12-10 11:07] LABS: ALBUMIN 3.6 GM/DL (3.2-5.2); ALBUMIN/GLOBULIN RATIO 1.2 (1.00-1.93); BILIRUBIN,TOTAL 0.6 MG/DL (0.2-1.0); CALCIUM LEVEL 8.7 MG/DL (8.8-10.2); CREATININE FOR GFR 1.81 MG/DL (0.70-1.30); GLOMERULAR FILTRATION RATE 37.8 (>35); POTASSIUM SERUM 4.1 MEQ/L (3.5-5.1); TOTAL PROTEIN 6.6 GM/DL (6.4-8.2)
== END ==
LOC: M SFHCPLAZ 08:51
PROVIDERS: ATTEND Internal Medicine
DX: C22.7 Other specified carcinomas of liver (principal); E11.40 Type 2 diabetes mellitus with diabetic neuropathy, unspecified

== ENCOUNTER → 2017-02-19 | Outpatient (REF) | payer MEDICARE, OTHER ==
[2017-02-19 13:46] LABS: MEAN CORPUSCULAR HEMOGLOBIN 31.3 pg (27.0-33.0); MEAN CORPUSCULAR HGB CONC 32.7 g/dl (32.0-36.5); MEAN CORPUSCULAR VOLUME 95.7 fl (80.0-96.0); RED CELL DISTRIBUTION WIDTH 12.7 % (11.5-14.5); WHITE BLOOD COUNT 7.7 K/mm3 (4.0-10.0)
[2017-02-19 13:52] LABS: ALBUMIN 3.7 GM/DL (3.2-5.2); ALBUMIN/GLOBULIN RATIO 1.09 (1.00-1.93); BILIRUBIN,TOTAL 0.6 MG/DL (0.2-1.0); CREATININE FOR GFR 1.7 MG/DL (0.70-1.30); GLOMERULAR FILTRATION RATE 40.6 (>35); POTASSIUM SERUM 4.1 MEQ/L (3.5-5.1); TOTAL PROTEIN 7.1 GM/DL (6.4-8.2)
== END ==
LOC: M SFHCPLAZ 10:46
PROVIDERS: ATTEND Internal Medicine
DX: C22.7 Other specified carcinomas of liver (principal); E11.40 Type 2 diabetes mellitus with diabetic neuropathy, unspecified